=== PATIENT | female | born 1955 | race Caucasian/White ===

== ENCOUNTER → 2016-12-16 | Outpatient (CLI) | payer MEDICARE, OTHER ==
[~2016-12-16] MED LIST: ADVAIR DISKUS 21 DSK IH; ALBUTEROL0.09 MG/A2 IH; DEPAKOTE SPRIN125 MG PO; FENTANYL TR75 MCG/HR TD; LEVOFLOXACIN500 MG PO; NEURONTIN800 MG PO; NEXIUM40 MG PO; PERCOCET 325 MG1 TA6 PO; PREDNISONE10 MG PO; PRILOSEC20 MG PO; REGLAN10 MG PO; TOPAMAX50 MG PO; UNISOM25 MG PO; XANAX0.5 MG PO
== END | disposition home or self-care (01) ==
LOC: RESCLI 03:52
DX: G43.919 Migraine, unspecified, intractable, without status migrainosus (principal); J43.9 Emphysema, unspecified; F31.70 Bipolar disorder, currently in remission, most recent episode unspecified; G89.4 Chronic pain syndrome

== ENCOUNTER → 2017-03-16 | Outpatient (CLI) | payer MEDICARE, OTHER | END | disposition home or self-care (01) | LOC: RESCLI 02:41 | DX: J43.9 Emphysema, unspecified (principal); G62.9 Polyneuropathy, unspecified; J41.8 Mixed simple and mucopurulent chronic bronchitis; Z76.0 Encounter for issue of repeat prescription ==

== ENCOUNTER 2017-05-18 19:01 | Inpatient (IN) | payer MEDICARE ==
[~2017-05-18] VITALS: Ht 152.4 cm; Wt 86.3 kg
--- NOTE | ~2017-05-18 | CON ---
[place], [place] REPORT OF CONSULTATION NAME: RAYMUNDO HEATH [facility] #: [id number] UNIT #: [id number] ROOM: 409 DOCTOR: MARLON LUBIN MD BIRTHDATE: [birth year] DOS: 05/20/2017 REASON FOR CONSULTATION: To assess the patient for ongoing exacerbation of COPD. REQUESTING PHYSICIAN: This consultation was requested by hospitalist services. HISTORY OF PRESENT ILLNESS: A 61-year-old white female who has been admitted under care of the hospitalist service on 05/18/2017. The patient came to the hospital as he has noted with progressive increased respiratory symptoms ongoing for a couple of days. Symptoms noted to be rapid and progressive and it got worse. She has been noted with coughing, which has been noted intermittently moderate amount of sputum expectoration at times. Usually, the cough has been noted nonproductive. The patient was complaining of wheezing with tightness in chest or shortness of breath, moderate exertion. She denies symptoms of chest pain or hemoptysis. The symptoms of chest congestion was still noted persistent at this time with current medical management. She has been receiving treatment for acute exacerbation of COPD. REVIEW OF SYSTEMS: CONSTITUTIONAL: Fatigue and tiredness noted without symptoms of fever or chills. EYES: Denies any burning, redness, or tenderness. EARS, NOSE, AND THROAT: No sore throat, hoarseness, otalgia, postnasal drainage or epistaxis. CARDIOVASCULAR: Denies anginal pain, edema or pain of the lower extremities. GASTROINTESTINAL: Denies dysphagia, nausea, vomiting, diarrhea, abdominal pain, hematemesis, melena, or hematochezia. SKIN: Denies lesions or rashes. MUSCULOSKELETAL: Denies acute joint pain, redness, or tenderness. CENTRAL NERVOUS SYSTEM: Denies diplopia, seizures or syncope. Remaining systems were reviewed and they were noted all negative. PAST MEDICAL HISTORY: 1. COPD. 2. Chronic hypoxic respiratory failure, use of oxygen 2 liters nasal cannula continuous use. 3. Essential hypertension. 4. Hyperlipidemia. 5. Hypothyroidism. 6. Coronary artery disease with past myocardial infarction. 7. History of migraine headache. PAST SURGICAL HISTORY: 1. ____. 2. Partial thyroidectomy. 3. Tracheostomy in the past, which was decannulated. SOCIAL HISTORY: The patient is , has 3 children. Denies any history of alcohol use. Tobacco use noted since teens, a pack of cigarettes a day until [place], [place] REPORT OF CONSULTATION NAME: RAYMUNDO HEATH UNIT #: [id number] ROOM: [facility] DOCTOR: MARLON LUBIN MD BIRTHDATE: [birth year]. Denies any history of occupation related pulmonary exposure. FAMILY HISTORY: Father at 90 years old from old age. Mother at the age of 6666 years old from complication related to unknown cancer. HOME MEDICATIONS: Noted as use of Ventolin HFA inhaler, ProAir HFA inhaler p.r.n. use, aspirin, gabapentin, DuoNeb p.r.n. use, Reglan 10 mg daily, Percocet daily, Seroquel XR 150 mg b.i.d., Imitrex 100 mg p.r.n. for migraine, and Topamax 50 mg p.o. b.i.d. DRUG ALLERGIES: No known drug allergies. PHYSICAL EXAMINATION: GENERAL: This is a 61-year-old female who has been currently sitting on the bed noted with audible chest congestion and wheezing with very mild tachypnea. VITAL SIGNS: Height of 5 feet, weight of 190 pounds, BMI of 37.1. Temperature was noted as normal, respiratory rate 16-20, heart rate of 81-100, blood pressure 140/90-126/57. The pulse oxygen saturation for the patient recorded on 3 liters nasal cannula 94% saturation. HEENT: Mild to moderate obesity. Head was atraumatic. Eyes nonicterus. Decreased posterior pharyngeal space, high tongue base and crowding of soft tissue structures. CARDIOVASCULAR: S1, S2 audible. LUNGS: The patient was noted with decreased breath sounds in the lungs bilaterally with expiratory wheezing. There were no crackles. ABDOMEN: Soft, moderate obesity, bowel sounds present, nontender. EXTREMITIES: Shows no edema, clubbing, or cyanosis. CENTRAL NERVOUS SYSTEM: Cranial nerves 2-12 intact. No focal deficits. MUSCULOSKELETAL: No deformities. SKIN: No lesions or rashes. LABORATORY DATA: The patient's lactic acid on 05/18/2017 was normal. CBC on 05/18/2017 were normal. CMP on 05/18/2017, on admission, was grossly normal. The troponin was normal on 05/18/2017. BMP on 05/19/2017, glucose 202, phosphorus 1.1. Remaining electrolytes grossly normal. CBC on 05/19/2017 remains normal, 94% segmented neutrophils. Ultrasound of the lower extremities of the patient that was done yesterday does not show any evidence of deep venous thrombosis in the extremities. The blood culture from the showed no bacterial growth. BMP this morning, BUN 23, creatinine 1.1. Remaining electrolytes normal. CBC this morning essentially remains about the same as previously. Review of the chest x-ray, 1 view, which was done in the Emergency Room on 05/18/2017 reviewed for the faxed images shows some hyperinflation without any acute pulmonary infiltration. CT of the chest done on 05/18/2017 was personally reviewed, shows evidence of centrilobular emphysematous changes in the upper lungs bilaterally, more on the right than the left side. Three different nodules were noted size of 5 to 8 with index nodule noted in the right upper lung measured as 8 mm in size. Mediastinal window for this patient was also reviewed and it does not show any significant lymphadenopathy. Left lung does not show any pulmonary nodules. [place], [place] REPORT OF CONSULTATION [id number] #: [id number] ROOM: 409 DOCTOR: KEON LUBIN MDM BIRTHDATE: [birth year] IMPRESSION: 1. The patient who has been currently admitted to the hospital noted with acute severe exacerbation of chronic obstructive pulmonary disease with acute bronchitis. 2. Chronic hypoxic respiratory failure dependent on oxygen. 3. Incidental finding of pulmonary nodule in the same lobe in the right upper lobe; at this time, etiology is unclear; requires further investigation and monitoring as an outpatient. 4. History of several comorbid conditions including hypertension, coronary artery disease and others. 5. Hyperglycemia secondary to corticosteroids. PLAN OF MANAGEMENT: Review of the medication, which was done at this time, the patient has been receiving IV Solu-Medrol 60 mg q.8 hours, which should suffice. Continue bronchodilators every 4 hours. Continuation of the DVT prophylaxis and Mucinex 1200 mg p.o. b.i.d. as well as the flutter valve use. Collected sputum for Gram culture. Continue current antibiotic, Levaquin, for the medical management of acute bronchitis. If the sputum culture does dictated other antibiotic administration could be ordered accordingly. If the patient's respiratory symptom remains persistent and does not resolve, consider fiberoptic bronchoscopy to help clear secretion from the endobronchial tree as necessary. Outpatient CT scan of the chest to be done for the patient in about 3 months to monitor the current pulmonary nodules. Other supportive therapy, plan of management and care. Continue oxygen supplementation for medical management of chronic hypoxic respiratory failure to maintain saturation 90% or greater. MARLON BAXTER MD CM:CONSTR:REPORT OF CONSULTATION 1220 05/21/17 0606 interface
--- NOTE | ~2017-05-18 | PROC NOTE ---
[place], [place] PROCEDURE NOTE NAME: RAYMUNDO HEATH UNIT #: [id number] ROOM: 409 DOCTOR: SAHIL HAMMOND MD,MARLON BIRTHDATE: [birth year] DOS: 05/22/2017 BRONCHOSCOPY REPORT PREOPERATIVE DIAGNOSES: The patient with cough and persistent wheezing as well as rule out tracheal stenosis. POSTOPERATIVE DIAGNOSES: The patient with cough and persistent wheezing as well as rule out tracheal stenosis. PROCEDURE DESCRIPTION: Informed consent obtained from the patient. She was brought to the OR and placed in supine position. Conscious sedation administered by the Anesthesia Department. After achieving appropriate sedation, airway introduced into the mouth. Bronchoscope advanced into the airway into laryngeal area. Epiglottis and vocal cords were seen. Vocal cords were moving symmetrically with movements, 3 cm after the vocal cord, the tracheal lumen, there was noted about 25%-30% narrowing of the tracheal lumen for this patient from the past tracheostomy area. Remaining trachea was noted clear. Moderate amount of secretion present in tracheal lumen, which was suctioned out. Genie noted sharp. Right upper, right middle, left upper, lingula, lower lobe bronchi were all examined. Moderate impaction and mucus plugs noted in the endobronchial tree bilaterally, which were suctioned out and sent for culture. Procedure was tolerated by the patient without any difficulty. Postoperative finding will be discussed with the patient once the patient recovers from the effects of acute sedation. MARLON BAXTER MD CM:PROCNOTE:PROCEDURE NOTE [id number] MARLON HAMMOND MD
--- NOTE | ~2017-05-18 | PR ---
[place], [place] PROGRESS NOTE [id number] UN[facility] #: [id number] ROOM: 409 DOCTOR: SAHIL HAMMOND MD,MARLON BIRTHDATE: [birth year] DOS: 05/23/2017 SUBJECTIVE: She has been noted comfortable at this time, bronchoscopy done yesterday with endobronchial secretions with reduction in the cough. The patient was still noted with wheezing most likely originating because of the upper airway obstruction partial with past tracheostomy and tracheal stenosis. In general, the patient has been doing well after bronchoscopy. OBJECTIVE: VITAL SIGNS: Normal temperature, respiratory rate is 18, heart rate 96, blood pressure 142/80, pulse oxygen saturation on 3 liters is 98% saturation. HEENT: No new change. NECK: Supple. CARDIOVASCULAR: S1, S2 audible. LUNGS: Noted with occasional wheezing, no crackles. ABDOMEN: Soft, nontender. LABORATORY DATA: Sputum culture from spontaneous sputum were noted as a growth of yeast. Gram stain of the bronchial washing were reviewed. Preliminary culture noted no bacterial growth, final culture results were still pending. 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 PLAN OF TREATMENT: The patient could be discharged home today on oral antibiotic, tapering prednisone, outpatient followup was suggested post-discharge. MARLON BAXTER MD CM:PNTRANS 1344 [id number] MARLON HAMMOND MD 05/24/17 0019 interface
--- NOTE | ~2017-05-18 | PR ---
[place], [place] PROGRESS NOTE NAME: RAYMUNDO HEATH UNIT #: [id number] ROOM: 409 DOCTOR: SAHIL HAMMOND MD,MARLON BIRTHDATE: [birth year] DOS: 05/21/2017 SUBJECTIVE: She has been noted with reduction in symptoms of shortness of breath, still noted with wheezing. The wheezing has been noted audible as well. She has been coughing hard and unable to expectorate sputum. She stated that she has to expectorate sputum sometimes extending her head backwards and holding her previous tracheostomy scar to help mobilize some secretions and expectoration of sputum. She has been continued with corticosteroids. OBJECTIVE: VITAL SIGNS: Normal temperature, respiratory rate 18, heart rate 103, blood pressure 128/78. The pulse oxygen saturation on 3 liters nasal cannula is 97% saturation. HEENT: Examination shows no acute change. NECK: Supple. CARDIOVASCULAR: S1, S2 audible. LUNGS: The patient was noted with decreased breath sounds, scattered wheezing was present. This was not consistent with audible wheezing, which was heard most likely related to upper airway abnormalities. ABDOMEN: Soft with chronic obesity. EXTREMITIES: Does not show any edema, clubbing, or cyanosis. SKIN: Showed no lesions or rashes. LABORATORY DATA: The Gram stain of the sputum, which this morning, shows many white blood cells, many budding yeast, few rare gram-positive cocci in chains. IMPRESSION: 1. The patient who has been currently noted with possibility of tracheal stenosis related to the past tracheostomy which has been decannulated would be likely cause of upper airway partial obstruction which would be considered variable. 2. The patient with acute exacerbation of chronic obstructive pulmonary disease as well. 3. Severe nonproductive cough. PLAN OF MANAGEMENT: She has been ordered a CT scan of the neck for assessment of the upper airway direct visualization will be necessary with fibrobronchoscopy to confirm the diagnosis and the severity. Bronchoscopy will also benefit the patient to remove the mucus impaction of major airways. The dose of Solu-Medrol has been decreased to 40 mg of Solu-Medrol b.i.d. from 60 mg every 8 hours. All other supportive plan and management of the patient as ongoing will be continued. [place], [place] PROGRESS NOTE NAME: RAYMUNDO HEATH UNIT #: [id number] ROOM: 409 DOCTOR: MARLON LUBIN MD BIRTHDATE: [birth year] MARLON BAXETR MD CM:KAYLEIGH [id number] [id number] MARLON HAMMOND MD 05/22/17 0229 interface
--- NOTE | ~2017-05-18 | PR ---
[place], [place] PROGRESS NOTE NAME: RAYMUNDO HEATH UNIT #: [id number] ROOM: 409 DOCTOR: SAHIL HAMMOND MDMARLON BIRTHDATE: [birth year] DOS: 05/22/2017 SUBJECTIVE: The patient was seen and examined on 05/22/2017. Remains in the hospital, still noted severe nonproductive cough. The patient was noted with inspiratory wheezing as well. She has not been noticed symptoms of hemodynamic instability. There were no symptoms of chest pain. OBJECTIVE: VITAL SIGNS: For the patient which were recorded shows the blood pressure noted as normal, respiratory rate 20, heart rate 72, blood pressure 140/80-154/86. Pulse oxygen saturation noted 3 liter nasal cannula was 98% saturation. HEENT: Remains unchanged. NECK: Supple. CARDIOVASCULAR: S1, S2 audible. LUNGS: Noted generally decreased breath sounds with expiratory wheezing. ABDOMEN: Soft, nontender. EXTREMITIES: Show chronic obesity. LABORATORY DATA: Spontaneous cultures of the sputum for this patient noted normal elfego preliminary. Gram stain of chest today was noted many white blood cells, many budding yeast with very gram-positive cocci in chains. CMP of this morning, BUN 37, creatinine 1.10, glucose 115. CBC of this morning, hemoglobin 11.6, remaining CBC was normal. CT scan of the soft tissue of the neck that was done yesterday, personally reviewed. Tracheal stenosis was noted ____ vocal cord area. Part of the lung was also included in the current test for this patient as well. 8 mm nodule noted in the right upper lung was visible again in this current CT scan. IMPRESSION: 1. The patient with tracheal stenosis. The patient with expiratory wheezing. The patient was noted with history of chronic obstructive pulmonary disease with acute exacerbation. 2. Pulmonary nodule in the right upper lobe as well. PLAN OF TREATMENT: Proceed with the bronchoscopy as planned. Addition of changes in treatment will be done for the patient based on the progression of the illness. No major treatment will be necessary at this time. Continue current dose of corticosteroids, bronchodilators, other treatment, plan and management and usual care. Supportive therapies. [place], [place] PROGRESS NOTE NAME: RAYMUNDO HEATH UNIT #: [id number] ROOM: 409 DOCTOR: MARLON LUBIN MD BIRTHDATE: [birth year] MARLON BAXTER MD CM:PNTRANS 1111 12 MARLON HAMMOND MD 05/22/17 1613 interface
[2017-05-18 19:08] VITALS: BP 155/89
[2017-05-18 19:23] VITALS: BP 180/88
[2017-05-18 19:53] VITALS: BP 142/92
[2017-05-18 20:12] LABS: BASO % 0.4 % (0.0-1.0); EOS # 0.2 10*3/uL (0.0-0.4); EOS % 2.1 % (1.0-4.0); HEMATOCRIT 38.8 % (37.0-47.0); HEMOGLOBIN 12.4 g/dl (12.0-16.0); LYMPH % 20.3 % (27.0-41.0); MEAN CORPUSCULAR HGB 29.7 pg (27.0-31.0); MEAN PLATELET VOLUME 10.3 fl (9.6-12.3); MONO # 0.6 10*3/uL (0.1-1.0); NEUT # 6.9 10*3/uL (2.3-7.9); NEUT % 70.8 % (47.0-73.0); PLATELET COUNT AUTOMATED 221 10*3/uL (130-400); RED BLOOD COUNT 4.17 10*6/uL (4.10-5.10); RED CELL DISTRI WIDTH 13.2 % (0-14.5); WHITE BLOOD COUNT 9.8 10*3/uL (4.8-10.8)
[2017-05-18 20:28] LABS: ALBUMIN 3.1 gm/dl (3.1-4.5); ALKALINE PHOSPHATASE 120 U/L (45-117); BUN 8 mg/dl (7-24); CHLORIDE 108 mmol/L (98-107); CREATININE 0.85 mg/dL (0.55-1.02); POTASSIUM 3.6 mmol/L (3.5-5.1); SGOT/AST 15 IU/L (3-35); SGPT/ALT 17 U/L (12-78); SODIUM 140 mmol/L (136-145)
[2017-05-18 20:30] LABS: TROPONIN I < 0.015 ng/ml (<0.045)
--- NOTE | 2017-05-18 21:30 | NUR ---
CALLED TO GIVE REPORT ON PT, NURSE WILL RETURN CALL.
[2017-05-18 21:42] VITALS: BP 132/70
[2017-05-18 22:31] VITALS: BP 138/80
--- NOTE | 2017-05-18 23:10 | NUR ---
A 61 FEMALE, admitted to , under the services of MITCHELL Al DO with a diagnosis of COPD EXACERBATION. Chief complaint is SOB. Patient arrived via wheel chair from ER. Monitor applied. Initial assessment completed. Vital signs taken and recorded. MITCHELL AL DO notified of admission to the unit. Orders received. See assessment for past medical history, medications and allergies. Patient and/or family oriented to unit. [facility] visitation policy reviewed. Clothing/patient valuable form completed. MATT PALACIOS
[2017-05-18] MEDS ORDERED: ASPIR-TRIN325 MG PO (23:38)
[2017-05-18] MEDS ORDERED: PROAIR HFA8.5 GM INH (23:39)
[2017-05-18] MEDS ORDERED: SEROQUEL XR150 MG PO (23:39)
[2017-05-18] MEDS ORDERED: IMITREX100 MG PO (23:42)
[2017-05-18] MEDS ORDERED: COMBIVENT RESPIM4 GM INH (23:43)
[2017-05-19] VITALS: BP 146/70
[2017-05-19 00:53] LABS: BILIRUBIN NEGATIVE (NEGATIVE); BLOOD TRACE-LYSED (NEGATIVE); CLARITY CLEAR (CLEAR); COLOR YELLOW (YELLOW); GLUCOSE NEGATIVE (NEGATIVE); KETONE NEGATIVE (NEGATIVE); LEUKO ESTERASE NEGATIVE (NEGATIVE); NITRITE NEGATIVE (NEGATIVE); SPECIFIC GRAVITY 1.015 (1.005-1.030); UROBILINOGEN 0.2 E.U./dl (0.2-1.0)
[2017-05-19 02:26] LABS: BUN 9 mg/dl (7-24); CHLORIDE 108 mmol/L (98-107); CREATININE 0.91 mg/dL (0.55-1.02); MAGNESIUM 2.1 mg/dL (1.5-2.1); POTASSIUM 4.2 mmol/L (3.5-5.1); SODIUM 138 mmol/L (136-145)
[2017-05-19 02:31] LABS: CHOLESTEROL 152 mg/dL (<200); HDL CHOLESTEROL 43 mg/dl (40-60); LDL CHOLESTEROL 96 mg/dL (9-159); PHOSPHOROUS 1.9 mg/dL (2.5-4.9); TRIGLYCERIDES 63 mg/dl (<150); VLDL CHOLESTEROL 13 mg/dL (6-40)
[2017-05-19 02:38] LABS: THYROID STIM HORMONE (HS) 0.318 uIU/ml (0.358-4.75)
[2017-05-19 06:36] LABS: HEMATOCRIT 38.2 % (37.0-47.0); HEMOGLOBIN 12.3 g/dl (12.0-16.0); MEAN CELL VOLUME 91.6 fl (81.0-99.0); MEAN CORPUSCULAR HGB 29.5 pg (27.0-31.0); MEAN CORPUSCULAR HGB CONC 32.2 g/dl (33.0-37.0); MEAN PLATELET VOLUME 10.7 fl (9.6-12.3); PLATELET COUNT AUTOMATED 207 10*3/uL (130-400); RED BLOOD COUNT 4.17 10*6/uL (4.10-5.10); WHITE BLOOD COUNT 6.9 10*3/uL (4.8-10.8)
[2017-05-19 07:20] LABS: ATYPICAL LYMPHS 1 % (0-0); PLATELET SUFFICIENCY NORMAL (NORMAL); TOTAL CELLS COUNTED 100 #CELLS
[2017-05-19 08:00] VITALS: BP 132/62
--- NOTE | 2017-05-19 11:05 | NUR ---
CRYING IN ROOM. VOICES THAT I CAN'T BREATHE. MEDICATED WITH ATIVAN 1MG PO ORDERED FOR ANXIETY.
--- NOTE | 2017-05-19 11:30 | NUR ---
States Ativan is helping. Appears more calm, not crying. Henry HONEYCUTT
[2017-05-19 12:00] VITALS: BP 138/78
--- NOTE | 2017-05-19 15:02 | NUR ---
DR. BAXTER NOTIFIED OF CONSULT.
[2017-05-19 16:00] VITALS: BP 126/63
[2017-05-19 20:00] VITALS: BP 122/75
[2017-05-20] VITALS: BP 126/57
--- NOTE | 2017-05-20 06:00 | NUR ---
PATIENT RESTING IN BED WITH EYES CLOSED. NO SIGNS OR SYMPTOMS OF DISTRESS NOTED. AUDIBLE WHEEZES NOTED WITHOUT STETHOSCOPE. WILL CONTINUE TO MONITOR. CALL LIGHT IN REACH.
[2017-05-20 06:08] LABS: HEMOGLOBIN 11.5 g/dl (12.0-16.0); MEAN CELL VOLUME 90.9 fl (81.0-99.0); MEAN CORPUSCULAR HGB CONC 31.9 g/dl (33.0-37.0); MEAN PLATELET VOLUME 10.8 fl (9.6-12.3); PLATELET COUNT AUTOMATED 206 10*3/uL (130-400); RED BLOOD COUNT 3.96 10*6/uL (4.10-5.10); WHITE BLOOD COUNT 10.4 10*3/uL (4.8-10.8)
[2017-05-20 06:25] LABS: CHLORIDE 109 mmol/L (98-107); CREATININE 1.11 mg/dL (0.55-1.02); POTASSIUM 4.2 mmol/L (3.5-5.1); SODIUM 141 mmol/L (136-145)
[2017-05-20 06:27] LABS: BUN 23 mg/dl (7-24)
[2017-05-20 06:49] LABS: TOTAL CELLS COUNTED 100 #CELLS
[2017-05-20 06:50] LABS: PLATELET SUFFICIENCY NORMAL (NORMAL)
[2017-05-20 08:00] VITALS: BP 140/90
--- NOTE | 2017-05-20 09:00 | NUR ---
Storeperson in to talk to patient. Patient states lives at home with son and daughter in law. There are no steps in the home. Physician: zan montez [facility]acy: [facility] Home health services: none Patient's level of ADLs: MINIMAL ASSIST Patient has working utilities: all working DME: home oxygen, portable tank, Follow-up physician's appointment after d/c: will be made by hospitalist nurse director upon discharge Does patient want to access PORTAL?: no Discharge plan discussed with patient, patient states she lives at home with her son and daughter in law, she states she uses a walker for ambulation, has home oxygen and a portable tanks, no nebulizer, discussed with her going to a short term senior care for rehab prior to going back home and patient refused, stated her family takes good care of her at home, also discussed VNA and she also refused this, patient stated she would like to have a bedside commode, a hospital bed and a nebulzier at home, hospitalist nurse director notified. case management will follow. JULI FU
[2017-05-20 12:00] VITALS: BP 146/66
[2017-05-20 16:00] VITALS: BP 131/65
[2017-05-20 20:00] VITALS: BP 127/75
--- NOTE | 2017-05-20 21:15 | NUR ---
Medicated with Restoril po prn for help with sleep. Will monitor effectiveness. Call light within reach.
--- NOTE | 2017-05-20 22:20 | NUR ---
Patient resting quietly in bed with eyes closed. Restoril effective. Will continue to monitor. Call light within reach.
[2017-05-21] VITALS: BP 153/92
--- NOTE | 2017-05-21 00:43 | NUR ---
24 HR chart check completed.
[2017-05-21 07:42] LABS: THYROID STIM HORMONE (HS) 0.029 uIU/ml (0.358-4.75)
[2017-05-21 08:00] VITALS: BP 128/78
--- NOTE | 2017-05-21 09:00 | NUR ---
case management visits with patient, again discussed with VNA and patient refused any at this time, case management will follow
[2017-05-21 12:00] VITALS: BP 131/86
--- NOTE | 2017-05-21 13:18 | NUR ---
case management received scripts for a nebulizer, bedside commode and hospital bed, called [facility], faxed scripts and patient's information, they will deliver equipement to patient's home tomorrow, patient notified
[2017-05-21 16:00] VITALS: BP 137/96
[2017-05-21 20:00] VITALS: BP 104/86
[2017-05-22] VITALS (9 sets, daily range): BP systolic 114–154; BP diastolic 57–96
[2017-05-22 05:50] LABS: HEMATOCRIT 37.1 % (37.0-47.0); HEMOGLOBIN 11.6 g/dl (12.0-16.0); LYMPH # 0.5 10*3/uL (1.3-4.4); MEAN CELL VOLUME 92.8 fl (81.0-99.0); MEAN CORPUSCULAR HGB CONC 31.3 g/dl (33.0-37.0); MEAN PLATELET VOLUME 10.9 fl (9.6-12.3); MONO # 0.6 10*3/uL (0.1-1.0); MONO % 5.6 % (3.0-9.0); NEUT # 9.3 10*3/uL (2.3-7.9); NEUT % 88.4 % (47.0-73.0); PLATELET COUNT AUTOMATED 205 10*3/uL (130-400); RED CELL DISTRI WIDTH 13.3 % (0-14.5); WHITE BLOOD COUNT 10.6 10*3/uL (4.8-10.8)
[2017-05-22 06:12] LABS: ALBUMIN 3.2 gm/dl (3.1-4.5); CHLORIDE 109 mmol/L (98-107); POTASSIUM 4.2 mmol/L (3.5-5.1); SGOT/AST 17 IU/L (3-35); SGPT/ALT 21 U/L (12-78); SODIUM 142 mmol/L (136-145); TOTAL PROTEIN 6.9 gm/dL (6.4-8.2)
[2017-05-22 06:13] LABS: ALKALINE PHOSPHATASE 78 U/L (45-117)
[2017-05-22 06:19] LABS: BUN 37 mg/dl (7-24)
--- NOTE | 2017-05-22 08:20 | NUR ---
Remains NPO. To OR for bronch by bed. Adelaida HONEYCUTT
--- NOTE | 2017-05-22 09:00 | NUR ---
case management visits with patient, patient's equipement will be delivered to her home today, patient denies any other home needs
--- NOTE | 2017-05-22 10:20 | NUR ---
Returned to room. Alert and oriented. no difficulty swallowing, full liquids started. Adelaida HONEYCUTT
--- NOTE | 2017-05-22 19:40 | NUR ---
PT. AWAKE, ALERT AND ORIENTED X 3 UPON ENTERING ROOM. PT. ON 3L NC, NC ON FOREHEAD AT TIME, MOVED BACK INTO CORRECT POSITION. BED IN LOWEST POSITION, WHEELS LOCKED, CALL LIGHT WITHIN REACH. SEE SHIFT ASSESSMENT.
[2017-05-23] VITALS: BP 136/77
[2017-05-23 08:00] VITALS: BP 142/80
--- NOTE | 2017-05-23 11:45 | NUR ---
PT WAS COUGHING AND UNABLE TO CATCH HER BREATH. PULSE OX ON 3L NC IS 95%. PT C/O OF BACK PAIN AND MEDICATED WITH PRN NORCO AND ATIVAN AT THIS TIME.
[2017-05-23] MEDS ORDERED: VITAMIN D31000 UNI1 PO (11:59)
[2017-05-23] MEDS ORDERED: DOXYCYCLINE100 M3 PO (11:59)
[2017-05-23] MEDS ORDERED: PREDNISONE10 MG PO (11:59)
[2017-05-23 12:00] VITALS: BP 153/82
[2017-05-23] MEDS ORDERED: VISTARIL25 MG PO (12:01)
--- NOTE | 2017-05-23 12:12 | NUR ---
HEPLOCK AND TELECOMMUNICATIONS CONSULTANT DISCONTINUED, PER PATIENT REQUEST I CALLED HER SON TO TELL HIM NOT TO FORGET HER PORTABLE OXYGEN TANK FR TRANSPORT.
--- NOTE | 2017-05-23 13:39 | NUR ---
PT WHEELED BY WHEELCHAIR TO PRIVATE CAR BY A STUDENT NURSE, DISCHARGE PAPERWORK DISCUSSED.
[2017-05-23 14:06] LABS: ACID FAST SMEAR Negative (.); ACID FAST SPEC PROCESSING Concentration (.)
== END 2017-05-23 13:39 | disposition home or self-care (01) | DRG 871 ==
LOC: ED 19:01 → EDHOLD 21:17 → 4E 21:17
PROVIDERS: Emergency Medicine Emergency Medical Services; Hospitalist; Internal Medicine; Internal Medicine Critical Care Medicine; Student in an Organized Health Care Education/Training Program; ADMIT Internal Medicine
DX: A41.9 Sepsis, unspecified organism (principal); J18.9 Pneumonia, unspecified organism; J96.11 Chronic respiratory failure with hypoxia; E44.0 Moderate protein-calorie malnutrition; E87.8 Other disorders of electrolyte and fluid balance, not elsewhere classified; Z99.81 Dependence on supplemental oxygen; J44.0 Chronic obstructive pulmonary disease with (acute) lower respiratory infection; J44.1 Chronic obstructive pulmonary disease with (acute) exacerbation; R91.1 Solitary pulmonary nodule; I25.10 Atherosclerotic heart disease of native coronary artery without angina pectoris; E78.5 Hyperlipidemia, unspecified; J20.9 Acute bronchitis, unspecified; Z96.642 Presence of left artificial hip joint; I10 Essential (primary) hypertension; E03.9 Hypothyroidism, unspecified; E55.9 Vitamin D deficiency, unspecified; Z79.82 Long term (current) use of aspirin; Z79.899 Other long term (current) drug therapy; I25.2 Old myocardial infarction; Z82.49 Family history of ischemic heart disease and other diseases of the circulatory system; Z80.8 Family history of malignant neoplasm of other organs or systems; Z83.3 Family history of diabetes mellitus; Z87.891 Personal history of nicotine dependence; Z68.37 Body mass index [BMI] 37.0-37.9, adult

== ENCOUNTER → 2017-05-27 | Outpatient (CLI) | payer MEDICARE ==
[~2017-05-27] MED LIST changes: +ASPIR-TRIN325 MG PO; +COMBIVENT RESPIM4 GM INH; +DOXYCYCLINE100 M3 PO; +IMITREX100 MG PO; +PROAIR HFA8.5 GM INH; +SEROQUEL XR150 MG PO; +VISTARIL25 MG PO; +VITAMIN D31000 UNI1 PO
== END | disposition home or self-care (01) ==
LOC: RESCLI 08:35
DX: J44.1 Chronic obstructive pulmonary disease with (acute) exacerbation (principal); G89.4 Chronic pain syndrome; G62.9 Polyneuropathy, unspecified; F31.70 Bipolar disorder, currently in remission, most recent episode unspecified; J43.9 Emphysema, unspecified; R91.1 Solitary pulmonary nodule; J42 Unspecified chronic bronchitis; J41.8 Mixed simple and mucopurulent chronic bronchitis; R60.0 Localized edema

== ENCOUNTER 2017-06-16 13:06 | Emergency (ER) | payer MEDICARE ==
[~2017-06-16] VITALS: Ht 152.4 cm; Wt 86.2 kg
[2017-06-16 13:20] VITALS: BP 154/83
[2017-06-16 14:19] LABS: BASO % 0.2 % (0.0-1.0); EOS # 0.1 10*3/uL (0.0-0.4); EOS % 1.7 % (1.0-4.0); HEMATOCRIT 37.4 % (37.0-47.0); HEMOGLOBIN 12.1 g/dl (12.0-16.0); LYMPH # 1.6 10*3/uL (1.3-4.4); LYMPH % 19.7 % (27.0-41.0); MEAN CELL VOLUME 90.6 fl (81.0-99.0); MEAN CORPUSCULAR HGB 29.3 pg (27.0-31.0); MEAN CORPUSCULAR HGB CONC 32.4 g/dl (33.0-37.0); MEAN PLATELET VOLUME 10.2 fl (9.6-12.3); MONO # 0.5 10*3/uL (0.1-1.0); NEUT # 5.9 10*3/uL (2.3-7.9); NEUT % 71.9 % (47.0-73.0); PLATELET COUNT AUTOMATED 214 10*3/uL (130-400); RED BLOOD COUNT 4.13 10*6/uL (4.10-5.10); WHITE BLOOD COUNT 8.1 10*3/uL (4.8-10.8)
[2017-06-16 14:34] LABS: BILIRUBIN NEGATIVE (NEGATIVE); BLOOD TRACE-INTACT (NEGATIVE); CLARITY SL CLOUDY (CLEAR); COLOR YELLOW (YELLOW); GLUCOSE NEGATIVE (NEGATIVE); KETONE NEGATIVE (NEGATIVE); LEUKO ESTERASE NEGATIVE (NEGATIVE); NITRITE NEGATIVE (NEGATIVE); SPECIFIC GRAVITY 1.015 (1.005-1.030); UROBILINOGEN 0.2 E.U./dl (0.2-1.0)
[2017-06-16 14:35] LABS: ALBUMIN 3.2 gm/dl (3.1-4.5); ALKALINE PHOSPHATASE 120 U/L (45-117); BUN 11 mg/dl (7-24); CHLORIDE 105 mmol/L (98-107); CREATININE 0.86 mg/dL (0.55-1.02); POTASSIUM 3.8 mmol/L (3.5-5.1); SGOT/AST 18 IU/L (3-35); SGPT/ALT 22 U/L (12-78); SODIUM 140 mmol/L (136-145); TOTAL PROTEIN 6.9 gm/dL (6.4-8.2)
[2017-06-16 14:44] LABS: BACTERIA TRACE
[2017-06-16] MEDS ORDERED: MIRALAX POWDER17 G1 PO (15:47)
[2017-06-16] MEDS ORDERED: DUONEB 3 MG/3 ML3 M1 INH (15:47)
== END 2017-06-16 15:39 | disposition home or self-care (01) ==
LOC: ED 13:06
PROVIDERS: Emergency Medicine
DX: R10.31 Right lower quadrant pain (principal); J44.1 Chronic obstructive pulmonary disease with (acute) exacerbation; I10 Essential (primary) hypertension; E78.5 Hyperlipidemia, unspecified; E78.00 Pure hypercholesterolemia, unspecified; E03.9 Hypothyroidism, unspecified; I25.2 Old myocardial infarction; G43.909 Migraine, unspecified, not intractable, without status migrainosus; I25.10 Atherosclerotic heart disease of native coronary artery without angina pectoris; Z79.899 Other long term (current) drug therapy; Z79.82 Long term (current) use of aspirin; Z99.81 Dependence on supplemental oxygen

== ENCOUNTER → 2017-06-29 | Outpatient (CLI) | payer MEDICARE ==
[~2017-06-29] MED LIST changes: +DUONEB 3 MG/3 ML3 M1 INH; +MIRALAX POWDER17 G1 PO
== END | disposition home or self-care (01) ==
LOC: RESCLI 03:51
DX: I10 Essential (primary) hypertension (principal); K59.00 Constipation, unspecified; R60.0 Localized edema; J42 Unspecified chronic bronchitis; R91.1 Solitary pulmonary nodule; J43.9 Emphysema, unspecified; F31.70 Bipolar disorder, currently in remission, most recent episode unspecified; G62.9 Polyneuropathy, unspecified; G89.4 Chronic pain syndrome; R00.0 Tachycardia, unspecified

== ENCOUNTER 2017-07-14 10:45 | Inpatient (IN) | payer MEDICARE ==
[~2017-07-14] VITALS: Ht 152.4 cm; Wt 82.1 kg
--- NOTE | ~2017-07-14 | PR ---
[place], [place] PROGRESS NOTE NAME: RAYMUNDO HEATH [facility] #: [id number] UNIT #: [id number] ROOM: 502 DOCTOR: SAHIL HAMMOND MD,MARLON BIRTHDATE: [birth year] DOS: 07/16/2017 The patient was independently seen and examined the patient [id number] encounter. The history was confirmed. Physical examination performed. Labs were also reviewed. Any assessment changes in the care and management was made personally for today's visit. SUBJECTIVE: She remains in the Intensive Care Unit at this time without any distress, coughing, chest congestion has been noted partially decreased. She denies symptoms of chest pain. The cough has been noted with some sputum expectoration at times. OBJECTIVE: VITAL SIGNS: Recorded showed normal temperature at this time, respiratory rate 22, heart rate 86, blood pressure 147/92-172/86, pulse oxygen saturation on 2 liters nasal cannula 96% saturation. HEENT: No new change. NECK: Supple. CARDIOVASCULAR: S1, S2 audible. LUNGS: Noted moderate generalized reduction of the breath sounds were noted with expiratory wheezing which has been decreased from previous exam. No crackles were heard. ABDOMEN: Soft, nontender. LABORATORY DATA: CBC on 07/16, WBC count 15.0, hemoglobin 11.2, hematocrit 34.6, platelet count normal, 97% segmented neutrophils. BMP: Glucose 157, BUN and creatinine normal. Blood culture from the of this month showed no bacterial growth, final culture results were pending. The patient had another CT scan done that include the chest, abdomen and pelvis with contrast ordered by the primary care attending, the images were personally reviewed, shows stable, previously noted right upper and right middle lobe nodule. The left lower lobe density which was visible with the lower portion CT of thorax abdominal findings couple of days ago on 07/14/2017 was essentially noted somewhat smaller at this time consistent with area of acute infiltration or rounded area of atelectasis. The patient was also noted with the possibility of complex uterine mass as well. IMPRESSION: The patient who has been currently admitted to the hospital. The patient had been treated for medical management of recurrent acute exacerbation of chronic obstructive pulmonary disease, possibility of rounded area of atelectasis or pneumonia involving the right lower lobe as well as acute bronchitis as well. ____ stable, previous pulmonary nodule in the right lung. Possible consideration of the Mycobacterium avium intracellulare infection. The patient remains in consideration at the present time. PLAN OF MANAGEMENT: Continuation of the current antibiotics, bronchodilators and oxygen supplementation. The dose of Solu-Medrol will be decreased to the lower dose at this time to 60 mg b.i.d. dosing. Continuation of the bronchodilators as well. All other supportive therapy, plan of management to be [place], [place] PROGRESS NOTE NAME: RAYMUNDO HEATH UNIT #: [id number] ROOM: [facility] DOCTOR: SAHIL HAMMOND MD,MARLON BIRTHDATE: [birth year] continued as well. Consultation for the patient will be obtained from the REFORESTATION WORKER specialist to assess the current uterine abnormality. Pelvic ultrasound will be beneficial that will be obtained to further assess and correct the current abnormality in the uterus. In the meantime, all other supportive therapy, plan of management in progress will be continued. Supportive therapy, plan of management. All the palliative measures as well. The patient may be transferred from the intensive care unit for this patient to telemetry floor for further continued medical management. Continue oxygen supplementation, maintain saturation 90% or greater. Monitoring all the culture results as well. The note done by the medical educator was approved as well. MARLON BAXTER MD CM:PNTRANS 1148 0025 MARLON HAMMOND MD 07/17/17 0025 interface
--- NOTE | ~2017-07-14 | PR ---
[place], [place] PROGRESS NOTE NAME: RAYMUNDO HEATH UNIT #: [id number] ROOM: 502 DOCTOR: MARLON LUBIN MD BIRTHDATE: [birth year] DOS: 07/17/2017 SUBJECTIVE: The patient has been noted with coughing, which has been noted nonproductive at times intermittently; however, shortness of breath, wheezing has been improving. There were no symptoms of chest pain. OBJECTIVE: VITAL SIGNS: Normal temperature, respiratory rate 20, heart rate 79, blood pressure 144/81. The pulse oxygen saturation on 2 liters 98% saturation. HEENT: Showed no acute change. NECK: Supple. CARDIOVASCULAR: S1, S2 audible. LUNGS: Moderate decreased breath sounds, mild expiratory wheezing, no crackles. ABDOMEN: Soft, nontender. LABORATORY DATA: BMP: BUN 26, creatinine was normal. CBC: WBC count 10.9, hemoglobin 11.3, hematocrit 34.1, remaining CBC normal. The pelvic ultrasound, the patient was completed yesterday, but the patient described as an MRI for the patient was recommended for this patient to correlate with patient with findings of abnormal CT scan. IMPRESSION: The patient who has been noted with progressive resolution improvement. The patient was continued with respiratory status of acute exacerbation of chronic obstructive pulmonary disease, localized pneumonia of the right lower lobe for this patient as well. ____ isolation, bronchial washing. Possibility uterine mass or other abnormality required further clarification. PLAN OF MANAGEMENT: Continue the patient on the bronchodilators, oxygen supplementation. Symptomatic management of the cough as ordered with Mary Ann-AC. Dose of Solu-Medrol will be further decreased at this time to 40 mg b.i.d. Other supportive therapy, plan of management and care plan. Additional treatment continued to be made for this patient with reduction of corticosteroids based on the improvement in the respiratory status. [place], [place] PROGRESS NOTE NAME: RAYMUNDO HEATH UNIT #: [id number] ROOM: [facility] DOCTOR: MARLON LUBIN MD BIRTHDATE: [birth year] MARLON BAXTER MD CM:PNTRANS [id number] MARLON HAMMOND MD 07/18/17 0329 interface
--- NOTE | ~2017-07-14 | CON ---
[place], [place] REPORT OF CONSULTATION [id number] UNIT #: [id number] ROOM: [facility] DOCTOR: KEMI NELSON DO BIRTHDATE: [birth year] DOS: 07/15/2017 This consult note is to be attached to the pulmonology consult note dictated by Dr. Baxter. REASON FOR CONSULTATION: Acute respiratory failure. CHIEF COMPLAINT: Shortness of breath. HISTORY OF PRESENT ILLNESS: The patient is a 61-year-old female with a history of advanced stage COPD, with continuous oxygen dependence at home, who presents with complaints of several days of worsening cough, shortness of breath and increased weakness and tiredness. She states that she has been having a productive cough in addition to chills, fevers, worsening respiratory distress and overall malaise. She denies any abdominal pain, vomiting, diarrhea, neurological symptoms or any other issues. PAST MEDICAL HISTORY: Significant for CAD, COPD, essential hypertension, hyperlipidemia, hypothyroid, migraines, obesity, vitamin D deficiency. PAST SURGICAL HISTORY: History of hip replacement, thyroidectomy and tracheostomy as well as stented coronary artery. SOCIAL HISTORY: Does not drink, does not use drugs and she has quit smoking as of last year. FAMILY HISTORY: Mother had CO at age 68. She was diabetic and she at age 93. Father had an CO in the 60s and he was at age 66 from cancer. ALLERGIES: Reported allergy is Mayonnaise. HOME MEDICATIONS: Albuterol, Symbicort, vitamin D, Dulcolax, Neurontin, Vistaril, Combivent, meloxicam, metoprolol, MiraLax, Seroquel and/ Anoro Ellipta. REVIEW OF SYSTEMS: GENERAL: She reports fevers, chills, malaise. HEENT: Denies change in vision, blurred vision, congestion. CARDIOVASCULAR: Reports chest discomfort. Denies any palpitations or lower extremity edema. RESPIRATORY: She reports shortness of breath, cough, wheezing and dyspnea with exertion. ABDOMINAL: Denies vomiting, diarrhea, abdominal pain, blood in stools. GENITOURINARY: Denies any dysuria, hematuria. NEUROLOGIC: Denies any focal neural deficits, confusion. PSYCHIATRIC: Denies depression or anxiety. ENDOCRINE: Denies polydipsia or heat or cold intolerance. SKIN: Denies any new rashes or lesions. PHYSICAL EXAMINATION: [place], [place] REPORT OF CONSULTATION NAME: RAYMUNDO HEATH [facility] #: [id number] UNIT #: [id number] ROOM: [facility] DOCTOR: KEMI NELSON DO BIRTHDATE: [birth year] VITAL SIGNS: Temperature 98.2, pulse 98, respiratory rate 15, blood pressure 126/70 and bedside pulse oximetry 96% on 3 liter nasal cannula. GENERAL: Awake, alert, responsive, in moderate degree of distress. HEAD: Normocephalic, atraumatic. EYES: No lesions, ulcerations, nonicteric. No discharge. ENT: No lesions. No scars. No masses. HEART: No gallop or murmur. Positive tachycardia. No edema in lower extremities. LUNGS: Bilateral wheezes and scattered rhonchi and crackles. ABDOMEN: Soft, nontender, nondistended. EXTREMITIES: No clubbing, cyanosis or edema. NEUROLOGIC: Grossly intact without focal neuro deficits. PSYCHOLOGICAL: Poor historian, somewhat anxious. SKIN: Warm and dry. No rashes, ulcerations. LABORATORY DATA: CBC: WBC is 17.3, HGB 11.2, HCT 34.8, and platelets 176. CHEMISTRIES: Sodium 142, potassium 3.9, chloride 111, carbon dioxide 23, BUN 14, creatinine 0.92, estimated GFR is more than 60, glucose 235, estimated average glucose when compared to A1c is 100, calcium 8.5, phosphorus 1.2, magnesium 1.8. Troponin negative for elevation. Triglycerides 54, cholesterol 134, LDL 73, HDL50, VLDL 11. Vitamin B12 of 415, vitamin D is 9.7. Folate is 5.65 and TSH is 0.069. Micro: Blood cultures ordered and pending. Respiratory virus panel pending. IMAGING: CT of the abdomen and pelvis was done yesterday, showed a consolidation in the posterior aspect of the right lung measuring up to 2 x 2 cm, cause is unclear, possible pneumonia amongst other possibilities, also possible uterine mass was appreciated by the radiologist. A ventral midline 5.6 cm hernia containing fat with minimal fat stranding was appreciated as well. Smaller periumbilical hernia with moderate fatty stranding was also seen by the radiologist per the report. CT of chest, abdomen and pelvis with contrast was reported to further evaluate her potential opacity in the lung or consolidation in the lungs. The pelvic region is reported to be poorly visualized due to extensive artifact from bilateral hip arthroplasties and there was no metastatic disease identified. As for the lung CT, it showed some stable nodular densities in the right upper lobe dating back to June of last year and the consolidations are appreciated again with a 9 mm density in the right lower lobe which the radiology report states could be inflammatory, as well as the densities in right lower lobe. Gallbladder ultrasound was done and showed diffuse hepatic steatosis, but without cholelithiasis or gallbladder wall thickening or biliary dilatation. ASSESSMENT AND PLAN: 1. Severe sepsis secondary to acute respiratory failure from what is likely bilateral pneumonia. 2. Lung nodules, less than 6 cm. This appears to be most likely inflammatory in nature rather than metastatic or cancerous; however, this is unclear at this time, so we will continue to follow and monitor for any changes. She has been started on broad spectrum antibiotics to cover for hospital-acquired pneumonia and breathing treatments as well have been started as well as steroids. We will [place], [place] REPORT OF CONSULTATION NAME: RAYMUNDO HEATH UNIT #: [id number] ROOM: [facility] DOCTOR: KEMI NELSON DO BIRTHDATE: [birth year] continue with those. We will reevaluate tomorrow. Thank you for consulting us. Please attach this to Dr. Baxter's note. KEMI NELSON DO MARLON BAXTER MD CM:CONSTR:REPORT OF CONSULTATION 20 07/15/172057 interface
--- NOTE | ~2017-07-14 | CON ---
[place], [place] REPORT OF CONSULTATION NAME: [facility]DO [facility]ATH [id number] UNIT #: [id number] ROOM: [facility] DOCTOR: MARLON LUBIN MD BIRTHDATE: [birth year] DOS: 07/15/2017 PULMONARY CONSULTATION EVALUATION AND MANAGEMENT ADDENDUM NOTE The patient was independently seen today with [id number]-ft-hoyn encounter. The history was personally taken for this patient. Physical examination performed. All the available labs were reviewed. This has been managed for the patient for today's visit were personally completed and the management changes were ordered as necessary after that. Note done by the medical appliance maker was approved. HISTORY OF PRESENT ILLNESS: This is a 61-year-old female who has been known to me with past history of COPD and other problem, has been admitted to the hospital and discharged on 05/23/2017. The patient was treated at that time for acute exacerbation of COPD and other symptom. The patient has a therapeutic bronchoscopy done on that admission as well. The patient presented to the hospital. The patient has been hospitalized on 07/14/2017. At that time, she was reported symptom recurrence of shortness of breath for the patient, increased chest congestion, and cough. Cough has been noted essentially significant intermittently and not resolving and noted nonproductive. She was also noted symptoms of wheezing and tightness in the chest. She does not have any symptoms of hemoptysis. She does complain of some retrosternal chest pain for the patient without radiation, usually occurs with deep cough. She has been admitted to the hospital for the patient and admitted to the Intensive Care Unit for further medical management. She has been brought to the hospital by the EMS. REVIEW OF SYSTEMS: Already completed by the medical appliance maker that includes elevation in temperature, symptoms of back pain, nausea, vomiting, and abdominal pain for the patient. GENITOURINARY: The right upper quadrant weakness and fatigue. CARDIOVASCULAR: Retrosternal chest pain for the patient. CENTRAL NERVOUS SYSTEM: Headache and other symptoms. PAST MEDICAL HISTORY: 1. The patient was noted for last hospitalization for the patient for the medical management of acute exacerbation of COPD. 2. History of chronic hypoxic respiratory failure, oxygen dependency 2 liters nasal cannula home use. 3. Essential hypertension. 4. Hyperlipidemia. 5. Hypothyroidism. 6. Coronary artery disease with myocardial infarction history. 7. History of migrainous headache. 8. Past tracheostomy for he patient and decannulation. 9. Bilateral hip arthroplasties. PAST SURGICAL HISTORY: 1. Therapeutic bronchoscopy. [place], [place] REPORT OF CONSULTATION NAME: RAYMUNDO HETAH UNIT #: [id number] ROOM: [facility] DOCTOR: SAHIL HAMMOND MD,[facility] BIRTHDATE: [birth year] 2. Partial thyroidectomy. 3. Tracheostomy with decannulation previously. SOCIAL HISTORY: She is , has 2 children. Denies history of alcohol or illicit drug use. Tobacco use noted 1 pack of cigarettes per day, started at teenager until 2016. There was history of occupational history related to pulmonary exposure. FAMILY HISTORY: Father passed [id number] from old age and natural causes. Mother at 66 of complication related to unknown cancer. MEDICATIONS: Current administered medications were recorded as use of vitamin D, Colace, metoprolol succinate, Lovenox for DVT prophylaxis, Protonix, Seroquel, gabapentin, Solu-Medrol 60 mg q.8 hours, Dulera 200/5 two inhalations b.i.d., hydroxyzine 25 mg q.6 p.r.n. for anxiety, DuoNeb q.4 hours, Levaquin, vancomycin, and IV Zosyn. ALLERGIES: The drug allergy history of the patient was noted as no known drug allergies. PHYSICAL EXAMINATION: GENERAL: This is a 61-year-old female who has been currently noted to be awake and alert without distress with audible wheezing. The height for the patient recorded as 5 feet, weight of 181 pounds, and BMI 35. VITAL SIGNS: 102.9 degree Fahrenheit temperature noted on admission, current temperature remains normal. Respiratory rate range between 28-17. Heart rate 88-135 noted on admission. Blood pressure 168/99 recorded on admission and currently noted as 132/74. The pulse oxygen saturation for the patient recorded as 98% on 2 liters nasal cannula and 4 liters nasal cannula 98% saturation later on recorded. Intake is 3.935 liter, output 2600 mL ____ 1.339 liters recorded in the last 24 hours. HEENT: Examination shows head was atraumatic. Eyes nonicterus. Some loss of muscle mastication. NECK: Supple. Previous tracheostomy stoma for this patient was essentially noted mostly healed. CARDIOVASCULAR SYSTEM: S1, S2 audible. LUNGS: The patient was noted with diffuse expiratory wheezing without any crackles. ABDOMEN: Noted flat, soft, nontender. Bowel sounds present. EXTREMITIES: Does not show any edema, clubbing, or cyanosis. CENTRAL NERVOUS SYSTEM: Cranial nerves 2-12 intact. No focal deficit. MUSCULOSKELETAL: No deformities. SKIN: No lesions or rashes. LABORATORY DATA: CBC for the patient that was done on 07/13/2017 has a normal CBC. Lactic acid 1.4 on 07/13/2017. PT, PTT was normal. Chest x-ray, one view, which was done in the Emergency Room, the patient was noted with change of COPD, hyperinflation without any acute pulmonary infiltration, finding of congestive heart failure and pleural effusions. CMP of the patient yesterday on admission, BUN 26, creatinine normal, and glucose 350. The troponin of the [place], [place] REPORT OF CONSULTATION NAME: RAYMUNDO HEATH UNIT #: [id number] ROOM: [facility] DOCTOR: SAHIL HAMMOND MD,MARLON BIRTHDATE: [birth year] patient was noted normal for the patient 3 sets yesterday. Bedside blood glucose range between as a highest. CBC rather repeated again, WBC count 13.2, otherwise noted as a normal CBC. CMP of the patient of 07/14/2017, BUN 36 and creatinine was normal. Influenza A and B, nasal washing antigen noted negative yesterday. The CMP this morning, BUN 44, creatinine normal, and glucose 204. Albumin of 3.0, total protein 5.9, both mildly decreased. CBC this morning, WBC count 13.2, hemoglobin 11.8, hematocrit 36.8, and platelet count was normal. The Radiology data personally reviewed for the patient was performed for this patient on this hospitalization and previously. Chest x-ray of the patient that was done for the patient, one view, in the Emergency Room on 07/13/2017 was noted without any acute infiltration. Chest x-ray previously for the patient on 05/20/2017 does not show any acute abnormalities. She has several previous CT scans done for this patient including the chest, abdomen and pelvis, several of those were reviewed. The CT scan of the chest initially once done for the patient, which was done on 07/12/2016 for the patient was noted with 7 mm nodule for the patient noted changes of emphysema of the patient in the right upper lobe. CT scan of the chest and CT of 05/18/2017 for the patient was reviewed for the patient's imminent nodule noted in the right upper lobe. It remains unchanged. Additional small nodule noted in right posterior subsegment of the right upper lobe. CT scan of the abdomen, which was done without contrast for the patient was noted with evidence of 2.2 x 2.2 cm rounded consolidation for this patient nodule was noted. Changes of emphysema was also noted. Some abnormality for the patient was described in the uterus for the patient has a mass lesion. Abdominal hernia containing fat was also reported. 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 IMPRESSION: 1. The patient who has been currently admitted to the hospital. The patient noted with finding and symptoms consistent with recurrent acute exacerbation of chronic obstructive pulmonary disease with acute bronchitis, possibility of localized infection, rounded atelectasis, and pneumonia for the patient will be considered in the right lower lobe as a new finding as compared with the last CT scan of the patient in 2015 in the lower portion of the thorax. The chest x-ray does not show any acute other masses. She has been noted past history of pulmonary nodules in the right lung as well. 2. 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 Bronchial washings suggested possibility of current nodule densities resulting from the Mycobacterium avium intracellulare complex infection. 3. Past history of nicotine use as well. 4. Hyperglycemia for the patient secondary to the use of the corticosteroids as well. 5. Leukocytosis, effect of infection with corticosteroid combination has a WBC count today was elevated at 17.3 with 99% segmented neutrophils. 6. Rule out mass lesion in the uterus of the patient with further additional assessment. 7. Tachycardia secondary to the distress for the patient with acute exacerbation of chronic obstructive pulmonary disease for the patient seemed to be resolving. [place], [place] REPORT OF CONSULTATION NAME: RAYMUNDO HEATH UNIT #: [id number] ROOM: [facility] DOCTOR: SAHIL HAMMOND MD,MARLON BIRTHDATE: [birth year] PLAN OF MANAGEMENT: At this time, the patient would be continued on the steroids and the bronchodilators. She was getting very broad-\E\spectrum intravenous antibiotics, all of them will be discontinued and replaced the patient's antibiotic for the patient as doxycycline oral use. Possible consideration of management for the patient for the infection in the future would be considered as well. The current nodule for the patient does not seem to be resulting for malignancy; however, it will be monitored if there would be any uterine cancer confirmed with further assessment. Other supportive therapy and plan of management to be continued for the patient as well. Usual care. Additional treatment changes will be done for the patient based on any new information data that the patient will be obtained. The patient has another CT scan of the chest, abdomen and pelvis ordered by the primary care attending for the patient to be completed today. It would be assessed once available. Respiratory viral panel for the patient will be ordered since the current finding may be occurring for this patient especially the fever, bronchitis, and exacerbation of COPD related to the viral etiology. Thanks for allowing me to participate in the care of this patient. MARLON BAXTER MD CM:CONSTR:REPORT OF CONSULTATION 1228 07/16/17 0041 interface
--- NOTE | ~2017-07-14 | PR ---
[place], [place] PROGRESS NOTE NAME: [facility]ATH [facility] [id number] UNIT #: [id number] ROOM: [facility] DOCTOR: KEMI NELSON DO BIRTHDATE: [birth year] DOS: 07/16/2017 This progress note is to be attached to the one separately dictated by Dr. Baxter. SUBJECTIVE: The patient was evaluated today. She is awake, alert and responsive. Denies nausea, vomiting, diarrhea, chest pain. She does state she is feeling better and she is generally quite a bit more responsive and interactive than she was yesterday. OBJECTIVE EXAMINATION: VITAL SIGNS: Temperature 98.1, pulse 86, respiratory rate 22, blood pressure 147/92 and bedside pulse oximetry is 96% on 2 liters nasal cannula. GENERAL: The patient is awake, alert, oriented, in minimal distress. RESPIRATORY: Some scattered wheezes, but decrease in crackling noises and improved airflow. HEART: Regular rate and rhythm. No murmur. ABDOMEN: Soft, nontender, nondistended. EXTREMITIES: No edema or erythema. PSYCHIATRIC: Somewhat anxious, but a good historian, otherwise normal mood and affect. NEUROLOGIC: No acute neurological deficits. SKIN: No tears or ulcerations. LABORATORY DATA: WBC is 15, HGB is 12.2 and platelets are 202. Chemistries: Sodium is 146, potassium is 3.8, chloride is ____, carbon dioxide is 27, BUN is 19, creatinine 0.92, GFR is more than ____, glucose is 157. IMAGING: The CT of chest, abdomen and pelvis that was done yesterday did not provide any new information regarding any possible metastatic cancer or anything of that sort. The nodule that was initially seen is read as a likely inflammatory process, otherwise no new findings regarding the imaging provided. IMPRESSION: 1. Pneumonia, bilateral with severe sepsis. 2. Chronic obstructive pulmonary disease with exacerbation and acute intrapulmonary inflammatory process. PLAN: Continue with current care. The patient seems to be improving with the steroids and she can now be moved out of the ICU. Also, regarding to the potential pelvic mass, an ultrasound was ordered and we recommend consulting Dr. Torres for his opinion. Otherwise any questions, please see Dr. Baxter's note. KEMI NELSON DO [place], [place] PROGRESS NOTE NAME: RAYMUNDO HEATH [place] UNIT #: [id number] ROOM: [facility] DOCTOR: KEMI NELSON DO BIRTHDATE: [birth year] MARLON BAXTER MD CM:PNTRANS [id number] KEMI NELSON DO 07/16/17 1151 interface
--- NOTE | ~2017-07-14 | PR ---
[place], [place] PROGRESS NOTE NAME[id number] UNIT #: [id number] ROOM: 502 DOCTOR: SAHIL HAMMOND MD,MARLON BIRTHDATE: [birth year] DOS: 07/19/2017 SUBJECTIVE: She has been noted comfortable at this time without distress. Denies symptoms of chest pain. The coughing and other symptoms have been progressively resolved. OBJECTIVE: VITAL SIGNS: Normal temperature, respiratory rate 18, heart rate 89, blood pressure 114/63. The pulse oxygen saturation of the patient on 2 liter nasal cannula 99% saturation. HEENT: Showed no acute change. NECK: Supple. CARDIOVASCULAR: S1, S2 audible. LUNGS: No wheeze or crackles. ABDOMEN: Soft, nontender. IMPRESSION: Progressive resolution of the acute hypoxic respiratory failure, exacerbation of chronic obstructive pulmonary disease, suspected around the area of atelectasis, pneumonia in the right lower lobe with other two pulmonary nodules noted in the right lung appeared to be stable subcentimeter in size. PLAN OF TREATMENT: The patient could be discharged home today. Outpatient follow up will be requested. ____ pulmonary nodule, respiratory status. MARLON BAXTER MD CM:PNTRANS [id number] MARLON HAMMOND MD 07/20/17 0550 interface
--- NOTE | ~2017-07-14 | PR ---
[place], [place] PROGRESS NOTE NAME: RAYMUNDO HEATH UNIT #: [id number] ROOM: 502 DOCTOR: MARLON LUBIN MD BIRTHDATE: [birth year] DOS: 07/18/2017 SUBJECTIVE: She has been noted with continued gradual reduction and improvement in respiratory symptom, reduction in the coughing. There were no symptoms of chest pain. She denies any hemoptysis. She has been currently treated on the telemetry floor. OBJECTIVE: VITAL SIGNS: For the patient, which was recorded for the patient showed the temperature noted as normal, respiratory rate of 20-15, heart rate 86, blood pressure 152/82. Pulse oxygen saturation on 2 liters nasal cannula 95% saturation. HEENT: Examination shows no acute change. NECK: Supple. CARDIOVASCULAR: S1, S2 audible. LUNGS: Examination of lungs shows mild expiratory wheezing were noted without any crackles. ABDOMEN: Soft and nontender. LABORATORY DATA: Today normal WBC count with mild anemia. BMP of the patient, BUN 32 and normal creatinine. IMPRESSION: 1. The patient who had been currently treated in the hospital. The patient is responding to the treatment for the medical management of acute exacerbation of chronic obstructive pulmonary disease for this patient with possibly a localized small pneumonia. The patient's last area rounded atelectasis in the right lower lobe. 2. Mycobacterium avium intracellulare isolation, patient bronchial washing at this time. Currently, the patient has not been started on any medical management and responding to current usual treatment. PLAN OF TREATMENT: Continuation of the current therapy, plan of management of the patient. Ambulation was encouraged. Bronchodilator will be continued. Solu-Medrol yesterday decreased to 40 mg b.i.d. dosing. Consider possible discharge home in the morning. Home physical therapy for the patient and to give the patient oral medications. [place], [place] PROGRESS NOTE NAME: RAYMUNDO HEATH UNIT #: [id number] ROOM: [facility] DOCTOR: MARLON LUBIN MD BIRTHDATE: [birth year] MARLON BAXTER MD CM:PNTRANS 1138 MARLON HAMMOND MD 07/19/17 0123 interface
[2017-07-14 11:02] VITALS: BP 168/99
[2017-07-14 12:22] LABS: HEMATOCRIT 41.4 % (37.0-47.0); HEMOGLOBIN 13.3 g/dl (12.0-16.0); MEAN CELL VOLUME 91.4 fl (81.0-99.0); MEAN CORPUSCULAR HGB 29.4 pg (27.0-31.0); MEAN CORPUSCULAR HGB CONC 32.1 g/dl (33.0-37.0); MEAN PLATELET VOLUME 10.5 fl (9.6-12.3); PLATELET COUNT AUTOMATED 232 10*3/uL (130-400); RED BLOOD COUNT 4.53 10*6/uL (4.10-5.10); RED CELL DISTRI WIDTH 13.1 % (0-14.5); WHITE BLOOD COUNT 19.6 10*3/uL (4.8-10.8)
[2017-07-14 12:24] LABS: ALBUMIN 3.3 gm/dl (3.1-4.5); ALKALINE PHOSPHATASE 132 U/L (45-117); BUN 12 mg/dl (7-24); CHLORIDE 103 mmol/L (98-107); CREATININE 0.96 mg/dL (0.55-1.02); SGOT/AST 29 IU/L (3-35); SGPT/ALT 34 U/L (12-78); SODIUM 137 mmol/L (136-145); TOTAL PROTEIN 7.3 gm/dL (6.4-8.2)
[2017-07-14 12:39] LABS: BASOPHILS 1 % (0-1); TOTAL CELLS COUNTED 100 #CELLS
[2017-07-14 12:40] LABS: PLATELET SUFFICIENCY NORMAL (NORMAL)
[2017-07-14 15:43] VITALS: BP 127/80
[2017-07-14 16:20] LABS: BILIRUBIN NEGATIVE (NEGATIVE); BLOOD TRACE-INTACT (NEGATIVE); CLARITY CLEAR (CLEAR); COLOR YELLOW (YELLOW); GLUCOSE NEGATIVE (NEGATIVE); KETONE NEGATIVE (NEGATIVE); LEUKO ESTERASE NEGATIVE (NEGATIVE); NITRITE NEGATIVE (NEGATIVE); SPECIFIC GRAVITY <= 1.005 (1.005-1.030); UROBILINOGEN 0.2 E.U./dl (0.2-1.0)
[2017-07-14 16:28] LABS: RBC 0-2 rbc/hpf (0-2)
[2017-07-14 16:29] LABS: EPITHELIAL CELLS 0-2
[2017-07-14 17:32] VITALS: BP 130/80
[2017-07-14 18:35] VITALS: BP 126/78
[2017-07-14] MEDS ORDERED: MELOXICAM15 MG PO (19:00)
[2017-07-14] MEDS ORDERED: SYMB160 INH (19:02)
[2017-07-14] MEDS ORDERED: ANORO ELLIPTA1 EACH INH (19:11)
[2017-07-14] MEDS ORDERED: VISTARIL25 MG PO (19:13)
[2017-07-14] MEDS ORDERED: TOPROL XL25 MG PO (19:14)
[2017-07-14] MEDS ORDERED: DULCOLAX STOOL100 MG PO (19:15)
[2017-07-14 20:00] VITALS: BP 123/75
[2017-07-15] VITALS: BP 133/73
[2017-07-15 04:00] VITALS: BP 148/82
[2017-07-15 04:37] LABS: MEAN CELL VOLUME 89.5 fl (81.0-99.0); MEAN CORPUSCULAR HGB 28.8 pg (27.0-31.0); MEAN CORPUSCULAR HGB CONC 32.2 g/dl (33.0-37.0); MEAN PLATELET VOLUME 10.6 fl (9.6-12.3); PLATELET COUNT AUTOMATED 176 10*3/uL (130-400); RED BLOOD COUNT 3.89 10*6/uL (4.10-5.10); RED CELL DISTRI WIDTH 12.9 % (0-14.5); WHITE BLOOD COUNT 17.3 10*3/uL (4.8-10.8)
[2017-07-15 04:40] LABS: HEMATOCRIT 34.8 % (37.0-47.0); HEMOGLOBIN 11.2 g/dl (12.0-16.0)
[2017-07-15 04:50] LABS: ACT PARTIAL THROMBO TIME 29.1 SECONDS (20.8-31.5); INTERNATIONAL NORM RATIO 1.2 (2.0-3.5)
[2017-07-15 04:54] LABS: BUN 14 mg/dl (7-24); CHLORIDE 111 mmol/L (98-107); CHOLESTEROL 134 mg/dL (<200); CREATININE 0.92 mg/dL (0.55-1.02); HDL CHOLESTEROL 50 mg/dl (40-60); LDL CHOLESTEROL 73 mg/dL (9-159); PHOSPHOROUS 1.2 mg/dL (2.5-4.9); POTASSIUM 3.9 mmol/L (3.5-5.1); SODIUM 142 mmol/L (136-145); TRIGLYCERIDES 54 mg/dl (<150); VLDL CHOLESTEROL 11 mg/dL (6-40)
[2017-07-15 05:01] LABS: THYROID STIM HORMONE (HS) 0.069 uIU/ml (0.358-4.75)
[2017-07-15 05:06] LABS: OVALOCYTES FEW; PLATELET SUFFICIENCY NORMAL (NORMAL); TOTAL CELLS COUNTED 100 #CELLS
[2017-07-15 06:36] LABS: VITAMIN D, 25-HYDROXY 9.7 ng/mL (30-100)
[2017-07-15 08:00] VITALS: BP 133/74
[2017-07-15 12:00] VITALS: BP 126/70
[2017-07-15 16:00] VITALS: BP 133/79
[2017-07-15 20:00] VITALS: BP 153/79
[2017-07-16] VITALS (7 sets, daily range): BP systolic 131–189; BP diastolic 73–92
[2017-07-16 04:39] LABS: HEMATOCRIT 34.6 % (37.0-47.0); HEMOGLOBIN 11.2 g/dl (12.0-16.0); MEAN CELL VOLUME 90.6 fl (81.0-99.0); MEAN CORPUSCULAR HGB 29.3 pg (27.0-31.0); MEAN CORPUSCULAR HGB CONC 32.4 g/dl (33.0-37.0); MEAN PLATELET VOLUME 11.1 fl (9.6-12.3); PLATELET COUNT AUTOMATED 202 10*3/uL (130-400); RED BLOOD COUNT 3.82 10*6/uL (4.10-5.10); RED CELL DISTRI WIDTH 13.2 % (0-14.5)
[2017-07-16 05:01] LABS: BUN 19 mg/dl (7-24); CHLORIDE 111 mmol/L (98-107); CREATININE 0.92 mg/dL (0.55-1.02); PHOSPHOROUS 3.1 mg/dL (2.5-4.9); POTASSIUM 3.8 mmol/L (3.5-5.1); SODIUM 146 mmol/L (136-145)
[2017-07-16 05:09] LABS: BURR CELLS FEW; OVALOCYTES FEW; PLATELET SUFFICIENCY NORMAL (NORMAL); TOTAL CELLS COUNTED 100 #CELLS
[2017-07-17] VITALS: BP 154/79
[2017-07-17 06:35] LABS: BASO % 0.1 % (0.0-1.0); HEMATOCRIT 34.1 % (37.0-47.0); HEMOGLOBIN 11.2 g/dl (12.0-16.0); LYMPH # 0.7 10*3/uL (1.3-4.4); LYMPH % 6.1 % (27.0-41.0); MEAN CORPUSCULAR HGB 29.6 pg (27.0-31.0); MEAN CORPUSCULAR HGB CONC 32.8 g/dl (33.0-37.0); MEAN PLATELET VOLUME 11.1 fl (9.6-12.3); MONO # 0.4 10*3/uL (0.1-1.0); MONO % 3.5 % (3.0-9.0); NEUT # 9.7 10*3/uL (2.3-7.9); NEUT % 89.3 % (47.0-73.0); PLATELET COUNT AUTOMATED 204 10*3/uL (130-400); RED BLOOD COUNT 3.79 10*6/uL (4.10-5.10); RED CELL DISTRI WIDTH 13.3 % (0-14.5); WHITE BLOOD COUNT 10.9 10*3/uL (4.8-10.8)
[2017-07-17 07:01] LABS: BUN 26 mg/dl (7-24); CHLORIDE 109 mmol/L (98-107); CREATININE 0.77 mg/dL (0.55-1.02); POTASSIUM 4.1 mmol/L (3.5-5.1); SODIUM 142 mmol/L (136-145)
[2017-07-17 08:00] VITALS: BP 137/63
[2017-07-17 12:00] VITALS: BP 144/81
[2017-07-17 16:00] VITALS: BP 154/72
[2017-07-17 20:00] VITALS: BP 149/74
[2017-07-18] VITALS: BP 127/72
[2017-07-18 01:05] LABS: ADENOVIRUS Negative (Negative); INFLUENZA A Negative (Negative); INFLUENZA B Negative (Negative); METAPNEUMOVIRUS Negative (Negative); PARAINFLUENZA 1 Negative (Negative); PARAINFLUENZA 2 Negative (Negative); PARAINFLUENZA 3 Negative (Negative); RHINOVIRUS Negative (Negative); RSV A Negative (Negative); RSV B Negative (Negative)
[2017-07-18 05:59] LABS: BASO % 0.1 % (0.0-1.0); HEMATOCRIT 36.1 % (37.0-47.0); HEMOGLOBIN 11.6 g/dl (12.0-16.0); LYMPH # 1.5 10*3/uL (1.3-4.4); LYMPH % 14.2 % (27.0-41.0); MEAN CELL VOLUME 90.5 fl (81.0-99.0); MEAN CORPUSCULAR HGB 29.1 pg (27.0-31.0); MEAN CORPUSCULAR HGB CONC 32.1 g/dl (33.0-37.0); MEAN PLATELET VOLUME 10.9 fl (9.6-12.3); MONO # 0.6 10*3/uL (0.1-1.0); MONO % 5.8 % (3.0-9.0); NEUT # 8.1 10*3/uL (2.3-7.9); NEUT % 78.7 % (47.0-73.0); PLATELET COUNT AUTOMATED 210 10*3/uL (130-400); RED BLOOD COUNT 3.99 10*6/uL (4.10-5.10); RED CELL DISTRI WIDTH 13.2 % (0-14.5); WHITE BLOOD COUNT 10.2 10*3/uL (4.8-10.8)
[2017-07-18 06:22] LABS: BUN 32 mg/dl (7-24); CHLORIDE 107 mmol/L (98-107); CREATININE 0.93 mg/dL (0.55-1.02); POTASSIUM 3.8 mmol/L (3.5-5.1); SODIUM 141 mmol/L (136-145)
[2017-07-18 08:00] VITALS: BP 152/82
[2017-07-18 12:00] VITALS: BP 150/80
[2017-07-18 15:57] VITALS: BP 148/76
[2017-07-18 20:00] VITALS: BP 140/70
[2017-07-19] VITALS: BP 155/89
[2017-07-19 08:00] VITALS: BP 162/95
[2017-07-19 12:00] VITALS: BP 114/63
[2017-07-19] MEDS ORDERED: PREDNISONE10 MG PO (13:04)
[2017-07-19] MEDS ORDERED: ROBITUSSIN DM 101 OZ PO (13:04)
[2017-07-19] MEDS ORDERED: DOXYCYCLINE MO100 M1 PO (13:04)
== END 2017-07-19 14:48 | disposition home health service (06) | DRG 871 ==
LOC: ED 10:45 → EDHOLD 16:51 → 5E 16:51 → ICCU 16:51 → 5E 07-16 13:45
PROVIDERS: Emergency Medicine; Internal Medicine; Internal Medicine Critical Care Medicine; Student in an Organized Health Care Education/Training Program; ADMIT Emergency Medicine
DX: A41.9 Sepsis, unspecified organism (principal); J96.21 Acute and chronic respiratory failure with hypoxia; E44.0 Moderate protein-calorie malnutrition; E87.2 Acidosis; Z93.0 Tracheostomy status; J18.1 Lobar pneumonia, unspecified organism; Z99.81 Dependence on supplemental oxygen; J44.0 Chronic obstructive pulmonary disease with (acute) lower respiratory infection; J44.1 Chronic obstructive pulmonary disease with (acute) exacerbation; A31.0 Pulmonary mycobacterial infection; R65.20 Severe sepsis without septic shock; R91.1 Solitary pulmonary nodule; I25.10 Atherosclerotic heart disease of native coronary artery without angina pectoris; R73.9 Hyperglycemia, unspecified; I10 Essential (primary) hypertension; E78.5 Hyperlipidemia, unspecified; G43.909 Migraine, unspecified, not intractable, without status migrainosus; Y95 Nosocomial condition; Z96.643 Presence of artificial hip joint, bilateral; E66.9 Obesity, unspecified; E89.0 Postprocedural hypothyroidism; K21.9 Gastro-esophageal reflux disease without esophagitis; F41.9 Anxiety disorder, unspecified; N85.9 Noninflammatory disorder of uterus, unspecified; E55.9 Vitamin D deficiency, unspecified; G89.29 Other chronic pain; I25.2 Old myocardial infarction; Z87.891 Personal history of nicotine dependence; Z98.61 Coronary angioplasty status; Z79.899 Other long term (current) drug therapy; Z80.8 Family history of malignant neoplasm of other organs or systems; Z83.3 Family history of diabetes mellitus; Z82.49 Family history of ischemic heart disease and other diseases of the circulatory system; Z68.35 Body mass index [BMI] 35.0-35.9, adult

== ENCOUNTER 2017-07-21 08:35 | Inpatient (IN) | payer MEDICARE ==
[2017-07-21] VITALS (7 sets, daily range): BP systolic 104–152; BP diastolic 55–88
[~2017-07-21] VITALS: Ht 152.4 cm; Wt 83.0 kg
--- NOTE | ~2017-07-21 | EKG ---
[place], [place] ELECTROCARDIOGRAM REPORT NAME: RAYMUNDO HEATH UNIT #: [id number] ROOM: 412 DOCTOR: SAHIL HAMMOND MD,MARLON BIRTHDATE: [birth year] DOS: 07/21/2017 ELECTROCARDIOGRAM The electrocardiogram was done on 07/21/2017, at 9:20 a.m. The electrocardiogram was done for assessment of symptoms of shortness of breath. Atrial fibrillation was noted with controlled heart rate of 83 beats per minute. MARLON BAXTER MD CM:EKGRPT:ELECTROCARDIOGRAM REPORT [id number] MARLON HAMMOND MD
[~2017-07-21 08:35] MED LIST changes: +ANORO ELLIPTA1 EACH INH; +DOXYCYCLINE MO100 M1 PO; +DULCOLAX STOOL100 MG PO; +MELOXICAM15 MG PO; +ROBITUSSIN DM 101 OZ PO; +SYMB160 INH; +TOPROL XL25 MG PO
--- NOTE | 2017-07-21 09:20 | NUR ---
PT PROVIDED A BEDSIDE COMMODE AND INFORMED THAT A URINE SPECIMEN IS NEEDED. PT STATES THAT "I CAN'T GO RIGHT NOW" RN INFORMED PT THAT WE NEED THE SAMPLE SOON FOR TESTING. PT VOICED UNDERSTANDING.
[2017-07-21 09:28] LABS: BASO % 0.1 % (0.0-1.0); EOS # 0.2 10*3/uL (0.0-0.4); EOS % 1.3 % (1.0-4.0); HEMATOCRIT 39.8 % (37.0-47.0); HEMOGLOBIN 12.9 g/dl (12.0-16.0); LYMPH # 1.7 10*3/uL (1.3-4.4); LYMPH % 10.5 % (27.0-41.0); MEAN CELL VOLUME 88.6 fl (81.0-99.0); MEAN CORPUSCULAR HGB 28.7 pg (27.0-31.0); MEAN CORPUSCULAR HGB CONC 32.4 g/dl (33.0-37.0); MEAN PLATELET VOLUME 10.2 fl (9.6-12.3); MONO # 1.1 10*3/uL (0.1-1.0); NEUT # 12.8 10*3/uL (2.3-7.9); NEUT % 79.8 % (47.0-73.0); PLATELET COUNT AUTOMATED 222 10*3/uL (130-400); RED BLOOD COUNT 4.49 10*6/uL (4.10-5.10); RED CELL DISTRI WIDTH 13.2 % (0-14.5); WHITE BLOOD COUNT 16.1 10*3/uL (4.8-10.8)
[2017-07-21 09:38] LABS: ACT PARTIAL THROMBO TIME 24.2 SECONDS (20.8-31.5)
[2017-07-21 09:45] LABS: ALBUMIN 3.1 gm/dl (3.1-4.5); ALKALINE PHOSPHATASE 91 U/L (45-117); BUN 27 mg/dl (7-24); CHLORIDE 104 mmol/L (98-107); CREATININE 0.75 mg/dL (0.55-1.02); LIPASE 87 U/L (73-393); POTASSIUM 3.6 mmol/L (3.5-5.1); SGOT/AST 16 IU/L (3-35); SGPT/ALT 39 U/L (12-78); SODIUM 140 mmol/L (136-145); TOTAL PROTEIN 6.6 gm/dL (6.4-8.2)
[2017-07-21 09:46] LABS: TROPONIN I < 0.015 ng/ml (<0.045)
[2017-07-21 11:50] LABS: BILIRUBIN NEGATIVE (NEGATIVE); BLOOD TRACE-INTACT (NEGATIVE); CLARITY CLEAR (CLEAR); COLOR YELLOW (YELLOW); GLUCOSE NEGATIVE (NEGATIVE); KETONE NEGATIVE (NEGATIVE); LEUKO ESTERASE 1+ (NEGATIVE); NITRITE NEGATIVE (NEGATIVE); PH 5.5 (5.0-9.0); UROBILINOGEN 0.2 E.U./dl (0.2-1.0)
[2017-07-21 11:58] LABS: BACTERIA 1+
--- NOTE | 2017-07-21 12:55 | NUR ---
A 61, admitted to , under the services of NANCY Whitt DO with a diagnosis of COPD EXACERBATION,SEPSIS,PNEUMONITIS. Chief complaint is SHORTNESS OF BREATH. Patient arrived via BED from ER. Monitor applied. Initial assessment completed. Vital signs taken and recorded. NANCY WHITT DO notified of admission to the unit. Orders received. See assessment for past medical history, medications and allergies. Patient and/or family oriented to unit. [facility] visitation policy reviewed. Clothing/patient valuable form completed. RAMAN GREER R
[2017-07-21] MEDS ORDERED: NORCO 7.5-3251 EACH PO (13:01)
[2017-07-21] MEDS ORDERED: VITAMIN D31000 UNI1 PO (13:21)
--- NOTE | 2017-07-21 20:03 | NUR ---
PATIENT MEDICATED WITH PO TYLENOL AND PO VISTARIL FOR C/O LOWER ABDOMINAL PAIN 10/10 AND ANXIETY. WILL MONITOR EFFECTIVENESS. CALL LIGHT LEFT WITHIN REACH.
--- NOTE | 2017-07-21 20:21 | NUR ---
NOTIFIED OF PATIENT'S COMPLAINTS OF ABDOMINAL PAIN 05/26. DISCUSSED CURRENT PAIN MEDICATIONS AND PATIENT'S RESPONSE TO THESE MEDICATIONS. NEW ORDERS TO FOLLOW PER .
--- NOTE | 2017-07-21 20:56 | NUR ---
PATIENT STATES EARLIER MEDICATION WAS INEFFECTIVE. PATIENT STILL C/O LOWER ABD PAIN 10/10. IV MORPHINE ADMINISTERED SLOWLY PER PRN ORDER. WILL MONITOR EFFECTIVENESS. CALL LIGHT LEFT IN REACH.
--- NOTE | 2017-07-21 21:32 | NUR ---
EARLIER MORPHINE EFFECTIVE PER PATIENT. WILL CONTINUE TO MONITOR. CALL LIGHT WITHIN REACH.
[2017-07-22] VITALS: BP 141/73
--- NOTE | 2017-07-22 00:21 | NUR ---
CALLED AT THIS TIME REGARDING PATIENT'S REQUEST FOR A SLEEPING PILL. NEW ORDERS TO FOLLOW PER .
--- NOTE | 2017-07-22 01:39 | NUR ---
PATIENT REQUESTED AND RECEIVED PO NORCO AND PO RESTORIL PER PRN ORDER FOR C/O ABDOMINAL PAIN 03/26 AND INSOMNIA. WILL MONITOR EFFECTIVENESS. CALL LIGHT LEFT IN REACH.
--- NOTE | 2017-07-22 02:29 | NUR ---
EARLIER MEDICATION APPEARS EFFECTIVE. PATIENT ASLEEP IN BED. RESPIRATIONS EASY. NO S/S OF DISTRESS NOTED. ON 3L NC. WILL CONTINUE TO MONITOR. CALL LIGHT LEFT IN REACH.
--- NOTE | 2017-07-22 04:04 | NUR ---
PATIENT ASLEEP IN BED. RESPIRATIONS EASY. NO S/S OF DISTRESS NOTED. ON 3L NC. WILL MONITOR. CALL LIGHT IN REACH.
[2017-07-22 07:17] LABS: BASO % 0.1 % (0.0-1.0); HEMATOCRIT 35.9 % (37.0-47.0); HEMOGLOBIN 11.5 g/dl (12.0-16.0); LYMPH # 0.6 10*3/uL (1.3-4.4); LYMPH % 6.9 % (27.0-41.0); MEAN CELL VOLUME 88.6 fl (81.0-99.0); MEAN CORPUSCULAR HGB 28.4 pg (27.0-31.0); MEAN PLATELET VOLUME 10.3 fl (9.6-12.3); MONO # 0.4 10*3/uL (0.1-1.0); MONO % 3.9 % (3.0-9.0); NEUT # 7.8 10*3/uL (2.3-7.9); NEUT % 88.1 % (47.0-73.0); PLATELET COUNT AUTOMATED 226 10*3/uL (130-400); RED BLOOD COUNT 4.05 10*6/uL (4.10-5.10); RED CELL DISTRI WIDTH 13.1 % (0-14.5); WHITE BLOOD COUNT 8.9 10*3/uL (4.8-10.8)
[2017-07-22 07:36] LABS: ALBUMIN 2.8 gm/dl (3.1-4.5); ALKALINE PHOSPHATASE 83 U/L (45-117); BUN 21 mg/dl (7-24); CHLORIDE 105 mmol/L (98-107); CREATININE 0.85 mg/dL (0.55-1.02); PHOSPHOROUS 2.5 mg/dL (2.5-4.9); SGOT/AST 12 IU/L (3-35); SGPT/ALT 32 U/L (12-78); TOTAL PROTEIN 6.5 gm/dL (6.4-8.2)
[2017-07-22 07:41] LABS: SODIUM 139 mmol/L (136-145)
[2017-07-22 07:45] LABS: POTASSIUM 4.6 mmol/L (3.5-5.1)
[2017-07-22 08:00] VITALS: BP 112/59
--- NOTE | 2017-07-22 09:38 | NUR ---
Networking Engineer in to talk to patient. Patient states lives at with family. There are no steps in the home. Physician: [facility]oor [facility]: [facility] Patient's level of ADLs: MINIMAL ASSIST Patient has working utilities: all working DME: walker, home oxygen portable tanks, nebulizer, hospital bed and bedside commode Follow-up physician's appointment after d/c: will be made by hospitalist nurse director upon discharge Does patient want to access PORTAL?: no Discharge plan discussed with patient, patient lives at home with son and daughter in law, she was recently discharged from the hospital and VNA was set up, discussed with her a short term care home stay prior to going home and patient refused, stated she would be fine at home, will talk with patient again regarding snf. JULI FU
--- NOTE | 2017-07-22 10:45 | NUR ---
ADMINISTERED PO NORCO FOR C/O BACK PAIN RATED 6/10. WILL MONITOR FOR EFFECTIVENESS
--- NOTE | 2017-07-22 10:55 | NUR ---
PHYSICAL THERAPY PAtient evaluated on 4, full evaluation to follow. Continue with PT as per plan of care with fall, 02 and acute debility precautions. PAtient with significant dyspneia with minimal exertion. PAtient is moderate complexity via chart review, tests and evaluation: 03409. Refuses SNF per d/c planning. Will require 24/ family assist and complete home health services. Thank you for this referral. Lashay Peters,PT
--- NOTE | 2017-07-22 11:00 | NUR ---
IV started right forearm with #22 protective cath after 1 attempts. Site prepped with Chloroprep. Sterile dressing applied. Patient tolerated procedure well. JULIEN VIRGEN
--- NOTE | 2017-07-22 11:11 | NUR ---
Occupational Therapy evaluation completed this date with full eval to follow. Precautions include O2 dep, IV LUE, SOB w/ min exertion, low complexity level (70114). Recommend OT per POC and OT upon d/c Thank you for this referral. Leatha Monsalve OTR/l
--- NOTE | 2017-07-22 11:40 | NUR ---
Patient resting quietly with no c/o discomfort. Respirations easy and regular. Vital signs stable. No overt distress. JULIEN VIRGEN
[2017-07-22 12:00] VITALS: BP 109/64
[2017-07-22 16:00] VITALS: BP 122/66
[2017-07-22 20:00] VITALS: BP 120/77
--- NOTE | 2017-07-22 22:16 | NUR ---
MEDICATED WITH NORCO FOR COMPLAINTS OF ABDOMINAL PAIN. WILL MONITOR FOR EFFECTIVENESS. CALL LIGHT IN REACH.
--- NOTE | 2017-07-22 23:30 | NUR ---
AMALIACO EFFECTIVE AT THIS TIME. RESTING IN BED WITH EYES CLOSED. NO SIGNS OR SYMPTOMS OF DISTRESS NOTED. WILL CONTINUE TO MONITOR. CALL LIGHT IN REACH.
[2017-07-23] VITALS: BP 139/95
--- NOTE | 2017-07-23 07:30 | NUR ---
ASSUMED CARE OF PT AT THIS TIME, RESPS EASY AND NONLABORED WITH NO S/S OF DISTRESS CALL LIGHT WITH IN REACH
[2017-07-23 08:00] VITALS: BP 136/82
--- NOTE | 2017-07-23 09:00 | NUR ---
case management visits with patient, again discussed with her VNA and she refused any services, case management will follow
[2017-07-23 12:00] VITALS: BP 116/64
--- NOTE | 2017-07-23 12:15 | NUR ---
PHYSICAL THERAPY Patient seen this am 1:1 for therapy and was sitting EOB upon therapist arrival and with continuous O2-3L via NC. Patient was very pleasant transfering sit to stand SBA and ambulated with use of wh walker, 100' x 1, demonstrating increased SOB > 75 feet and needed v/c for purse lip breathing technique during 1 standing rest break < 30 seconds. Patient also needed v/c for safe walker navigation with decreaed velocity prior to returning to EOB sit. Patient remained with call light, telephone and tray table following 14 minutes total treatment time. Will continue per POC as tolerated to improve functional mobilty with increaed standing activity tolerance. Baldomero Hilliard, PHOTOGRAPHIC PRINTER
--- NOTE | 2017-07-23 14:22 | NUR ---
Discharge instructions reviewed with patient/family. Patient receptive and verbalizes understanding. Follow-up care arranged. Written instructions given to patient/family. VLADIMIR THOMAS
--- NOTE | 2017-07-24 09:13 | NUR ---
PHYSICAL THERAPY CO-SIGN I approve of the Phyical Therapy notes written above. RADHA GARCIA PT
== END 2017-07-23 13:58 | disposition home or self-care (01) | DRG 871 ==
LOC: ED 08:35 → 4E 11:30 → EDHOLD 11:30 → 4E 11:35
PROVIDERS: Emergency Medicine; Registered Nurse; ADMIT Student in an Organized Health Care Education/Training Program
DX: A41.9 Sepsis, unspecified organism (principal); J18.9 Pneumonia, unspecified organism; J96.10 Chronic respiratory failure, unspecified whether with hypoxia or hypercapnia; E44.0 Moderate protein-calorie malnutrition; K83.1 Obstruction of bile duct; J44.1 Chronic obstructive pulmonary disease with (acute) exacerbation; J44.0 Chronic obstructive pulmonary disease with (acute) lower respiratory infection; N39.0 Urinary tract infection, site not specified; I10 Essential (primary) hypertension; E78.5 Hyperlipidemia, unspecified; Z68.35 Body mass index [BMI] 35.0-35.9, adult; E66.9 Obesity, unspecified; B96.89 Other specified bacterial agents as the cause of diseases classified elsewhere; R73.9 Hyperglycemia, unspecified; R10.9 Unspecified abdominal pain; E83.51 Hypocalcemia; I25.10 Atherosclerotic heart disease of native coronary artery without angina pectoris; E03.9 Hypothyroidism, unspecified; G43.909 Migraine, unspecified, not intractable, without status migrainosus; Z96.649 Presence of unspecified artificial hip joint; Z87.891 Personal history of nicotine dependence; I25.2 Old myocardial infarction; Z95.5 Presence of coronary angioplasty implant and graft; Z88.8 Allergy status to other drugs, medicaments and biological substances; Z83.3 Family history of diabetes mellitus; Z82.49 Family history of ischemic heart disease and other diseases of the circulatory system; Z80.9 Family history of malignant neoplasm, unspecified

== ENCOUNTER → 2017-08-04 | Outpatient (CLI) | payer MEDICARE ==
[~2017-08-04] MED LIST changes: +NORCO 7.5-3251 EACH PO
== END | disposition home or self-care (01) ==
LOC: RESCLI 02:05
DX: I10 Essential (primary) hypertension (principal); G62.9 Polyneuropathy, unspecified; F31.60 Bipolar disorder, current episode mixed, unspecified; K59.09 Other constipation; I25.10 Atherosclerotic heart disease of native coronary artery without angina pectoris; J44.9 Chronic obstructive pulmonary disease, unspecified; E78.5 Hyperlipidemia, unspecified

== ENCOUNTER 2017-09-15 19:46 | Inpatient (IN) | payer MEDICARE ==
[~2017-09-15] VITALS: Ht 152.4 cm; Wt 79.5 kg
--- NOTE | ~2017-09-15 | EKG ---
[place], [place] ELECTROCARDIOGRAM REPORT NAME: RAYMUNDO HEATH UNIT #: [id number] ROOM: [facility] DOCTOR: SAHIL HAMMOND MD,MARLON BIRTHDATE: [birth year] DOS: 09/15/2017 Electrocardiogram was done on 09/15/2017, at 8:44 p.m. Normal sinus rhythm noted. The heart rate of 88 beats per minute with the wandering EKG. There was no gross changes for ischemia was noted. MARLON BAXTER MD CM:EKGRPT:ELECTROCARDIOGRAM REPORT [id number] MARLON HAMMOND MD
--- NOTE | ~2017-09-15 | PROC NOTE ---
[place], [place] PROCEDURE NOTE NAME: RAYMUNDO HEATH UNIT #: [id number] ROOM: 401 DOCTOR: SAHIL HAMMOND MD,MARLON BIRTHDATE: [birth year] DOS: 09/22/2017 PREOPERATIVE DIAGNOSES: The patient with severe nonresolving cough with the mucus impaction and intermittent wheezing with maximum medical therapy. POSTOPERATIVE DIAGNOSES: Removal of large plugs of the mucus of endobronchial tree bilaterally with finding of acute tracheobronchitis was also noted. PROCEDURE DESCRIPTION: Informed consent obtained from the patient. The patient brought to the OR and placed in supine position. Conscious sedation was administered by the Anesthesia Department. After achieving proper sedation, airway introduced into the mouth. Bronchoscope advanced into the airway into laryngeal area. Epiglottis and vocal cords were seen. The vocal cord was noted moving symmetric with the movements. The bronchoscope was advanced to the vocal cord and tracheal lumen noted with moderate amount of thick mucoid secretion with some purulent secretion mixture, suctioned out to the shan level. The patient noted multiple plaques of the mucus present in the endobronchial tree bilaterally suctioned out and sent for cultures. Procedure well tolerated. There were no endobronchial structure lesions. The procedure finding will be discussed with the patient, once the patient recovered the effects of acute sedation. MARLON BAXTER MD CM:PROCNOTE:PROCEDURE NOTE 1231 0229 MARLON HAMMOND MD
--- NOTE | ~2017-09-15 | CON ---
[place], [place] REPORT OF CONSULTATION NAME[id number] UNIT #: [id number] ROOM: 401 DOCTOR: CLAUDE MATAMOROS ED.D (JESUS) BIRTHDATE: [birth year] DOS: 09/21/2017 HISTORY OF PRESENT ILLNESS: The patient is a 61-year-old female referred by the hospitalist for depression. At the present time, this patient is on the 4th floor at [facility]. She was brought into the hospital for flu-like symptoms. Her medical history is pertinent for coronary artery disease, hypertension, migraine headaches, myocardial infarction, morbid obesity and major depressive disorder. This patient quit smoking in 2015 and denies any alcohol use or abuse. She was awake, alert and oriented in all three spheres. She knew she was in [facility] and she knew the date. She states she does follow with a psychiatrist and counselor here in [place] but is uncertain of their name. She states that their office is either on [address] [facility] [address] or [address], so I am not certain the name of her therapist. She does admit to being chronically depressed and anxious and is taking Vistaril, calcium, Seroquel, gabapentin, Lovenox, Protonix, Zofran, albuterol and Ativan. She states she is not prescribed an antidepressant medication at the present time, but in my opinion, she would benefit from antidepressant medications. I did relay my opinion to the hospitalist office and recommended an antidepressant. She denies any suicidal ideation or plan and has no significant memory deficits. DIAGNOSIS: Major depressive disorder, recurrent. RECOMMENDATIONS: The patient would benefit from antidepressant medications. Thank you very much for this consult. CLAUDE MATAMOORS ED.D CM:CONSTR:REPORT OF CONSULTATION 1237 09/21/171954 interface
--- NOTE | ~2017-09-15 | PR ---
[place], [place] PROGRESS NOTE NAME: RAYMUNDO HEATH UNIT #: [id number] ROOM: 401 DOCTOR: MARLON LUBIN MD BIRTHDATE: [birth year] DOS: 09/22/2017 PULMONARY PROGRESS NOTE SUBJECTIVE: The patient was noted essentially the same without any changes. Denies symptoms of shortness of breath with excessive coughing. Denies symptoms of wheezing or any chest pain. Denies symptoms of abdominal pain. The patient has been kept n.p.o. past midnight for bronchoscopy. Denies any edema of the lower extremity, abnormal skin rashes, or itching. The remaining systems were reviewed, they were noted all negative. PHYSICAL EXAMINATION: VITAL SIGNS: Normal temperature, respirations 18-20, heart rate of 82-104, and blood pressure 160/84-137/81. Pulse oxygen saturation on 3 liters nasal cannula 96% saturation. HEENT: No acute change. NECK: Supple. CARDIOVASCULAR: S1, S2 audible. LUNGS: Moderate decreased breath sounds with [id number] expiratory wheezing. There were no crackles. ABDOMEN: Flat, soft, and nontender. EXTREMITIES: Without any edema. VISIBLE SKIN: No lesions or rashes. MUSCULOSKELETAL: No deformities. CENTRAL NERVOUS SYSTEM: Nonfocal. LABORATORY DATA: The culture of the sputum for the patient of 09/20/2017 was noted light growth of gram-negative bacilli, pending identification sensitivities. There were no other labs done in the last 24 hours. IMPRESSION: 1. Persistent acute exacerbation of chronic obstructive pulmonary disease, acute tracheobronchitis, and possibility of gram-negative infection versus colonization. 2. Resolved and treated acute influenza A infection as well with the Tamiflu. 3. Past history of nicotine abuse. PLAN OF MANAGEMENT: Closely monitoring culture results. The patient will be continued with current bronchodilators, oxygen supplementation, and corticosteroids. After the bronchoscopy if any modification in treatment necessary will be ordered accordingly. In the meantime, other treatment of the patient has previously in progress will be continued. Modification of antibiotic will be done for the patient after the culture results availability. [place], [place] PROGRESS NOTE NAME: RAYMUNDO HEATH UNIT #: [id number] ROOM: 401 DOCTOR: AZMARLON KASPER MD BIRTHDATE: [birth year] MARLON BAXTER MD CM:KAYLEIGH 1228 MARLON HAMMOND MD 09/23/17 0216 interface
--- NOTE | ~2017-09-15 | PR ---
[place], [place] PROGRESS NOTE NAME: RAYMUNDO HEATH UNIT #: [id number] ROOM: 401 DOCTOR: SAHIL HAMMOND MD,MARLON BIRTHDATE: [birth year] DOS: 09/20/2017 SUBJECTIVE: She has been noted reduction in the pain, which appeared to be musculoskeletal. Coughing has been resolving. Wheezing for the patient is also resolving. Denies any shortness of breath at rest. OBJECTIVE: VITAL SIGNS: Normal temperature, respiratory rate 18, heart rate 88, blood pressure 143/68. The pulse oxygen saturation of the patient recorded as 95% on 3 liters nasal cannula. HEENT: No acute change. NECK: Supple. CARDIOVASCULAR: S1, S2 audible. LUNGS: Mild expiratory wheezing with improvement in air entry was noted in the lungs bilaterally. ABDOMEN: Soft, nontender. EXTREMITIES: Without any acute edema. IMPRESSION: 1. The patient with resolving acute bronchitis with exacerbation of chronic obstructive pulmonary disease progressively on current plan of management. 2. Musculoskeletal pain for the patient is improved with local pain management measures. PLAN OF MANAGEMENT: Continuation of bronchodilators, oxygen supplementation. Reduce Solu-Medrol dose to 40 mg b.i.d. Possible discharge home could be considered for morning. MARLON BAXTER MD CM:PNTRANS 1338 [id number] MARLON HAMMOND MD 09/20/17 7966 interface
--- NOTE | ~2017-09-15 | PR ---
[place], [place] PROGRESS NOTE NAME: RAYMUNDO HEATH UNIT #: [id number] ROOM: 401 DOCTOR: MARLON LUBIN MD BIRTHDATE: [birth year] DOS: 09/18/2017 SUBJECTIVE: She was still noted the coughing, chest congestion with shortness of breath with exertion. The symptoms has been noted very slow resolution. Coughing has been noted without any sputum expectoration at this time. There were no symptoms of chest pain or any abdominal pain. OBJECTIVE: VITAL SIGNS: For the patient, which was recorded showed the temperature noted normal, respiratory rate 20, heart rate 91 and blood pressure 118/82. Pulse oxygen saturation 3 liters nasal cannula 96% saturation. HEENT: Showed no acute change. NECK: Supple. CARDIOVASCULAR: S1, S2 audible. LUNGS: Moderate decreased breath sounds, mild to moderate expiratory wheezing without any crackles. ABDOMEN: Soft, nontender. EXTREMITIES: Without edema. LABORATORY DATA: BMP today: BUN 27, creatinine was normal. IMPRESSION: 1. The patient with slow resolution of acute exacerbation of current respiratory symptoms with exacerbation of chronic obstructive pulmonary disease and acute bronchitis. 2. Suspected influenza A infection for the patient, which has been treated with the Tamiflu as well. PLAN OF TREATMENT: The patient will be continuing current plan of therapy. She has been responding to treatment with slow improvement. The steroids for the patient will be continued the same dose today and might be reduced tomorrow morning depends on additional improvement in the respiratory status. Continuation of the symptomatic management of cough and the antibiotic as well as antiviral treatment. [place], [place] PROGRESS NOTE NAME: RAYMUNDO HEATH UNIT #: [id number] ROOM: 401 DOCTOR: MARLON LUBIN MD BIRTHDATE: [birth year] MARLON BAXTER MD CM:PNTRANS 1309 21 MARLON HAMMOND MD 09/18/17 2321 interface
--- NOTE | ~2017-09-15 | PR ---
[place], [place] PROGRESS NOTE NAME: RAYMUNDO HEATH UNIT #: [id number] ROOM: 401 DOCTOR: SAHIL HAMMOND MD,MARLON BIRTHDATE: [birth year] DOS: 09/22/2017 The patient noted comfortable at this time without any acute distress, had not been noted symptoms of chest pain or any abdominal pain. MARLON BAXTER MD CM:KAYLEIGH 1229 29 MARLON HAMMOND MD 09/22/172028 interface
--- NOTE | ~2017-09-15 | PR ---
[place], [place] PROGRESS NOTE [id number] #: [id number] ROOM: 401 DOCTOR: SAHIL HAMMOND MD,MARLON BIRTHDATE: [birth year] DOS: 09/17/2017 SUBJECTIVE: The patient was seen and examined on 09/17/2017. She remains in the hospital. Reduction in symptoms of coughing and wheezing were noted partially. She has been continued with the treatment for suspected influenza infection with acute exacerbation of COPD, coughing, wheezing, and shortness of breath. The patient has been noted with gradual reduction. The patient denies symptoms of chest pain or any hemoptysis. The patient has not been noted with any symptoms of acute chest pain. OBJECTIVE: VITAL SIGNS: Normal temperature, respiratory rate 18, heart rate 90, blood pressure 120/60-149/83. Pulse oxygen saturation on 3 liters nasal cannula 97% saturation. HEENT: Shows head was atraumatic. Eyes nonicterus. NECK: Supple. CARDIOVASCULAR: S1, S2 audible. LUNGS: The patient was noted without any crackles. Moderate expiratory wheezing noted partially decreased from previous examination. ABDOMEN: Soft, nontender. EXTREMITIES: Without any edema. IMPRESSION: The patient with slow resolution of acute exacerbation of chronic obstructive pulmonary disease, acute bronchitis, suspected acute influenza infection, partial improvement noted in all of the above conditions. PLAN OF TREATMENT: Continue the steroids, bronchodilators, oxygen supplementation and other plan of treatment as in progress. Additional treatment changes to be made based on progression of the illness. MARLON BAXTER MD CM:PNTRANS 1123 30 MARLON HAMMOND MD 09/17/172229 interface
--- NOTE | ~2017-09-15 | PR ---
[place], [place] PROGRESS NOTE NAME: RAYMUNDO HEATH [facility] #: [id number] UNIT #: [id number] ROOM: 401 DOCTOR: SAHIL HAMMOND MDMARLON BIRTHDATE: [birth year] DOS: 09/21/2017 SUBJECTIVE: She has been noted with reduction in cough, wheezing, shortness of breath, and other respiratory symptom. Denies symptoms of chest pain or hemoptysis. Denies symptoms of abdominal pain. She denies symptoms of hemoptysis. The patient does not have symptoms of headache. The chest pain of the patient, which was reported as musculoskeletal, is resolving gradually. She denies any symptoms of dizziness, headache, diplopia, or seizures. Remaining systems review was noted as negative. OBJECTIVE: VITAL SIGNS: Temperature of 99.5 degree Fahrenheit, normal temperature, respiratory rate 18-20, heart rate 84-110, blood pressure 156/90-157/86. Pulse oxygen saturation on 3 liters nasal cannula 100% saturation recorded. HEENT: Showed no acute change. NECK: Supple. CARDIOVASCULAR: S1, S2 audible. LUNGS: Noted with [id number] decreased breath sounds with expiratory wheezing. There were no crackles. ABDOMEN: Soft, nontender. Bowel sounds present. EXTREMITIES: Without any edema. CENTRAL NERVOUS SYSTEM: Intact. No focal deficit. SKIN: Visible skin, no lesions or rashes. MUSCULOSKELETAL: Without any acute deformities. LABORATORY DATA: The respiratory viral panel from 09/16/2017 was noted all negative. BMP this morning, BUN 38, creatinine was normal. Remaining electrolytes are grossly normal. Culture of the sputum was pending at this time. The Gram stain from the patient yesterday, many white blood cells with few budding yeast, few gram-negative bacilli, few gram-positive cocci in pairs and clusters. IMAGING STUDIES: The patient had a CTA of the chest, which was ordered by the primary care attending yesterday and that was also reviewed. It showed tubular density noted in the right upper lung, most likely representing the mucus impaction in this patient in one of the subsegment of the right upper lung bronchus. IMPRESSION: 1. The patient noted with musculoskeletal pain with acute exacerbation of chronic obstructive pulmonary disease, acute bronchitis, mucus impaction of the endobronchial tree was also suspected. The finding was not noted consistent with a true nodule for the patient in the right upper lung. 2. History of congestive heart failure, diastolic dysfunction. PLAN OF MANAGEMENT: The patient will benefit from therapeutic bronchoscopy, which is planned to be done tomorrow morning if the consent will be obtained from the patient. Bronchodilators to be continued in the meantime. Continuation of the corticosteroids, current treatment, Solu-Medrol 40 mg [place], [place] PROGRESS NOTE NAME: RAYMUNDO HEATH UNIT #: [id number] ROOM: [facility] DOCTOR: MARLON LUBIN MD BIRTHDATE: [birth year] b.i.d., bronchodilators and high dose of Mucinex. All other supportive therapy, plan of management. No change in antibiotic will be necessary. Monitor culture results. The patient already completed 5 days of treatment for the acute bronchitis related to a suspected influenza infection. MARLON BAXTER MD CM:PNTRANS 1139 27 MARLON HAMMOND MD 09/21/172226 interface
--- NOTE | ~2017-09-15 | PR ---
[place], [place] PROGRESS NOTE NAME: RAYMUNDO HEATH UNIT #: [id number] ROOM: 401 DOCTOR: SAHIL HAMMOND MD,MARLON BIRTHDATE: [birth year] DOS: 09/25/2017 SUBJECTIVE: She has been noted comfortable at this time with gradual reduction in the symptoms of cough and shortness of breath symptoms continuously. She was still awaiting for placement in senior care facility. She is getting continuous intravenous antibiotics. OBJECTIVE: VITAL SIGNS: Normal temperature, respiratory rate 20, heart rate 79, blood pressure 118/58. The pulse oxygen saturation on 3 liters nasal cannula 100% saturation. HEENT: No acute change. NECK: Supple. CARDIOVASCULAR: S1, S2 audible. LUNGS: Noted without any wheeze or crackles at the present time. ABDOMEN: Soft and nontender. EXTREMITIES: Without any acute edema. IMPRESSION: The patient with gradual resolution and improvement continued for the acute exacerbation of chronic obstructive pulmonary disease and acute tracheobronchitis. PLAN OF MANAGEMENT: No changes in the plan of therapy of the patient at this time. Continue the patient's all other previous treatment as previously in progress. Usual care, other supportive therapy, plan of management and care. Usual treatment, all other supportive therapy, plan of management care. Usual treatments. Transfer the patient to nursing facility with the previous plan of care for IV antibiotic for the medical management of gram-negative organism E. coli ESBL-producing species. MARLON BAXTER MD CM:PNTRANS [id number] MARLON HAMMOND MD 09/26/17 0041 interface
--- NOTE | ~2017-09-15 | PR ---
[place], [place] PROGRESS NOTE NAME: RAYMUNDO HEATH UNIT #: [id number] ROOM: 401 DOCTOR: MARLON LUBIN MD BIRTHDATE: [birth year] DOS: 09/19/2017 SUBJECTIVE: She has been complaining of pain in the back of the chest with the cough. The coughing has been noted with some sputum expectoration at time. The wheezing of the patient was noted decreased. Shortness of breath occurs with exertion. Denies symptoms of hemoptysis. Denies symptoms of nausea, vomiting, diarrhea, dizziness or headache. Denies any edema or pain of the lower extremities. Denies any hematuria. The remaining system review noted as negative. OBJECTIVE: VITAL SIGNS: Showed normal temperature, respiratory rate 18, heart rate 88, blood pressure 140/75. Pulse oxygen saturation noted on 3 liters nasal cannula of 100% saturation. HEENT: Examination shows no acute change. NECK: Supple. CARDIOVASCULAR: S1, S2 is audible. LUNGS: The patient was noted with moderate decreased breath sounds, mild to moderate expiratory wheezing. There were no crackles. ABDOMEN: Soft, nontender. EXTREMITIES: The patient was noted without any edema, clubbing or cyanosis. MUSCULOSKELETAL: The patient was noted without any acute deformities. VISIBLE SKIN: No lesions or rashes. LABORATORY DATA: Arterial blood gas today ordered by the primary care attending, pH of 7.33, pCO2 of 43, pO2 of 90.8. CMP this morning, BUN 34, creatinine normal, glucose 106. Albumin 3.0. IMPRESSION: 1. The patient with musculoskeletal chest pain with acute exacerbation of COPD. 2. The patient with evidence of acute suspected bronchitis related to the influenza A infection already been treated for this patient with Tamiflu. PLAN OF MANAGEMENT: The K-pad for this patient was ordered to help control the pain. Continuation of the bronchodilators and oxygen supplementation. Symptomatic management of pain if necessary with any medication will be done. Continue the current antibiotic. Dose of Solu-Medrol was already changed to 40 mg q.8h. Additional changes in treatment later will be needed will be done as necessary. [place], [place] PROGRESS NOTE NAME: RAYMUNDO HEATH UNIT #: [id number] ROOM: 401 DOCTOR: MARLON LUBIN MD BIRTHDATE: [birth year] MARLON BAXTER MD CM:PNTRANS [id number] MARLON HAMMOND MD 09/20/17 0055 interface
--- NOTE | ~2017-09-15 | CON ---
[place], [place] REPORT OF CONSULTATION NAME: RAYMUNDO HEATH UNIT #: [id number] ROOM: 401 DOCTOR: MARLON LUBIN MD BIRTHDATE: [birth year] DOS: 09/16/2017 PULMONARY CONSULTATION EVALUATION AND MANAGEMENT REQUESTING PHYSICIAN: Hospitalist Service. REASON FOR CONSULTATION: Recurrence of acute respiratory symptom. HISTORY OF PRESENT ILLNESS: This is a 61-year-old white female known to me from the past, was admitted to the hospital because of progressive increased respiratory symptom. The patient was independently seen and examined. Uflu-ga-swci encounter, history was confirmed on this patient personally. Physical examination performed. The labs were reviewed. Today the assessment note is personally done. The medical management change as needed for this patient were personally made for today's visit. Note done by the medical photographer was approved. This is a patient who has been known with past history of COPD, chronic hypoxic respiratory failure presented to the hospital and admitted to the hospital as the patient developed symptoms of significant increased shortness of breath occurring at home. The shortness of breath has been noted for the last few days. The symptoms were noted progressively worsening. She was complaining of excessive chest congestion and coughing and also fever of 102 degrees Fahrenheit. The symptoms were noted in the past 5 days, not improving with the usual home medications. She does use the oxygen supplement at home. The coughing has been noted with progressive worsening. She was also exposed to the grandsons who has been recently treated 10 days ago for influenza A infection. The patient has been currently admitted to the hospital from 09/15/2017 for current acute symptoms. Still noticed severe shortness of breath, which occurs with minimal exertion with nonproductive cough, wheezing and chest congestion. REVIEW OF SYSTEMS: Already done by the medical photographer. Past medical history, surgical history, social history, and family history were personally reviewed since my consultation, which was done on 07/15/2017 and remains all unchanged. Please refer to that consultation for further details as needed, which is available in the [employer] document for this patient. MEDICATIONS: The current administered medication was noted as use of hydroxyzine, vitamin D, MiraLax, Seroquel, gabapentin, Mucinex 1200 mg b.i.d., Lovenox for DVT prophylaxis, Dulera 200/5 two puffs b.i.d., Solu-Medrol 60 mg q.8 hours, DuoNeb q.4h., Levaquin intravenously, Tamiflu orally and other medications p.r.n. were used as well for symptomatic management of acute symptoms. DRUG ALLERGIES: Reported as no known drug allergies. PHYSICAL EXAMINATION: GENERAL: A 61-year-old female who has been noted currently sitting on the chair with excessive cough, shortness of breath occurred as the patient walked from a chair in about 5 feet in her room. The height noted 5 feet, weight of 175 [place], [place] REPORT OF CONSULTATION NAME: RAYMUNDO HEATH UNIT #: [id number] ROOM: 401 DOCTOR: SAHIL HAMMOND MD,MARLON BIRTHDATE: [birth year] pounds, BMI 34.2. VITAL SIGNS: Normal temperature, respiratory rate 18-20, heart rate 108 with sinus tachycardia to normal heart rate, blood pressure of the patient ranged between 143/90-154/88. Pulse oxygen saturation on 3 liters nasal cannula 97% saturation. HEENT: Head was atraumatic. Eyes nonicterus. NECK: Supple. CARDIOVASCULAR: S1, S2 is audible. LUNGS: The patient was noted with diffuse expiratory wheezing without any crackles. ABDOMEN: Soft, mild obesity. Bowel sounds present. EXTREMITIES: Without any edema, clubbing, cyanosis. CENTRAL NERVOUS SYSTEM: No gross focal deficit. Cranial nerves 2-12 intact. SKIN: No lesions or rashes. MUSCULOSKELETAL: Without any acute deformities. LABORATORY DATA: PT/INR yesterday was noted normal. Admission CBC yesterday noted as normal. CMP on 09/15/2017 normal BUN and creatinine. The CBC that was done 09/16/2017 was normal. PT/INR done on 09/16/2017 was normal. CMP done on 09/16/2017 BUN normal and creatinine 1.10. Chest x-ray just 1-view done in the Emergency was essentially noted without any acute pulmonary infiltration, changes of COPD, hyperinflation. IMPRESSION: 1. ____ noted with progressive respiratory symptom after exposure for this patient most likely due to influenza A infection resulting in acute severe exacerbation of chronic obstructive pulmonary disease and acute bronchitis. 2. Past nicotine abuse, which was stopped a couple of years ago by the patient. She was stating that she is not smoking any cigarettes. 3. History of chronic hypoxic respiratory failure, remains the same. Other comorbid condition noted in the past history. PLAN OF TREATMENT: Agree with current empirical treatment for influenza A infection for this patient with Tamiflu for a total of 5 days. Continue current dose of Solu-Medrol, bronchodilators to continue. Obtain additional viral panel, nasopharyngeal wash as well. Continue current antibiotic until the bacterial etiology is completely excluded. Titrate oxygen and maintain saturation 92% or greater. Symptomatic management of cough. Collect the sputum for Gram stain and culture as well. Additional treatment changes to be made for the patient based on the progression of the illness. Reduction of Solu-Medrol for this patient will be started based on the improvement of symptom. At this time, the current dose remains the same. Thanks for allowing me to participate in the care of this patient. [place], [place] REPORT OF CONSULTATION NAME: RAYMUNDO HEATH UNIT #: [id number] ROOM: [facility] DOCTOR: MARLON LUBIN MD BIRTHDATE: [birth year] MARLON BAXTER MD CM:CONSTR:REPORT OF CONSULTATION 1530 09/17/17 0517 interface
--- NOTE | ~2017-09-15 | O ---
[place], [place] OPERATIVE NOTE [id number] UNIT #: [id number] ROOM: 401 DOCTOR: NOELLE NIXONLAUREN BIRTHDATE: [birth year] DOS: 09/23/2017 INDICATION: The patient is a 61-year-old, who has presented with multiple medical problems, among which has been her dysphagia and shortness of breath and COPD exacerbation, and mucous plug, status post bronch. PAST MEDICAL HISTORY: COPD, lung nodule, migraine cephalalgia, myocardial infarction, borderline obesity, protein calorie malnutrition, COPD, coronary artery disease, and chronic pain. PAST SURGICAL HISTORY: Thyroidectomy, tracheostomy, hip prosthesis, and coronary artery stents. SOCIAL HISTORY: Smoker, nonalcohol consumer. FAMILY HISTORY: Noncontributory. ALLERGIES: No known medication. MEDICATIONS: Medication list has been reviewed. She is on aerosol therapy as well as bronchodilators, albuterol, and budesonide inhalers. PROCEDURE: Today's procedure part of investigation is panendoscopy plus biopsy plus brush for esophageal moniliasis. PREMEDICATION: Versed and Diprivan. SCOPE: Olympus forward-viewing gastroscope Q10 video. REPORT: After putting the patient in left lateral position and application of lubricant to the scope, the scope was introduced. Thereafter, under direct visualization, advanced through the length of esophagus without difficulty. Advanced diffuse esophageal moniliasis all the way from cervical esophagus to the EG junction was noticed photographed. [place] for fungal study was done. Gastric pouch was entered. Multiple small gastric ulcerations were noticed, photographed, biopsied. Margin of 1 was done. Diffuse gastritis with degraded droplets of blood in the gastric pouch was identified. Duodenal bulb, second and third part within normal limits. The patient extubated, tolerated procedure well. IMPRESSION: Diffuse esophageal moniliasis, multi small gastric ulcerations, and diffuse gastritis. PLAN AND DISCUSSION: We are going to keep this patient chronically on Protonix 40 mg daily. We are going to start her on Diflucan 100 mg today b.i.d., today 200 mg; however, after that from tomorrow 100 mg Diflucan every day for 10 more days. Diet to be regular as tolerated and clinical reassessment. Her dysphagia and distress with esophagus is explained based on her esophageal moniliasis of advanced degree and multiple gastric ulcers. Photographic series have been attached to the chart for future reference and documentation. [place], [place] OPERATIVE NOTE NAME: RAYMUNDO HEATH UNIT #: [id number] ROOM: [facility] DOCTOR: LAUREN DRAKE MD BIRTHDATE: [birth year] LAUREN DRAKE MD CM:OPRECORD:OPERATIVE NOTE [id number] LAUREN DRAKE MD 09/23/17 1245 interface
--- NOTE | ~2017-09-15 | PR ---
[place], [place] PROGRESS NOTE NAME: RAYMUNDO HEATH UNIT #: [id number] ROOM: 401 DOCTOR: SAHIL HAMMOND MD,MARLON BIRTHDATE: [birth year] DOS: 09/24/2017 SUBJECTIVE: She continues to show reduction of the respiratory symptoms and started on intravenous antibiotics for Gram-negative infection. The patient denies any symptoms of hemoptysis. Shortness of breath is resolving. The coughing has been resolving. Cultures of the bronchial washing of the patient was noted with heavy growth of gram-negative bacilli as Klebsiella pneumoniae seem as isolated as mild growth in the sputum culture. OBJECTIVE: VITAL SIGNS: Normal temperature, respiratory rate 20, heart rate 88, blood pressure 130/73, pulse oxygen saturation on 2 liters nasal cannula 99% saturation. HEENT: No acute change. NECK: Supple. CARDIOVASCULAR: S1, S2 audible. No added sounds. LUNGS: Clear of any wheezing or crackles. ABDOMEN: Soft and nontender. Bowel sounds present. EXTREMITIES: Without any acute edema. IMPRESSION: The patient with acute bronchitis. The patient with Klebsiella pneumoniae for this patient with resolving acute exacerbation of chronic obstructive pulmonary disease, progressively as well. PLAN OF MANAGEMENT: Continue medical management with intravenous meropenem for ____ acute bronchitis. Continue bronchodilators and oxygen supplementation. Continue current dose of Solu-Medrol 40 mg daily. MARLON BAXTER MD CM:PNTRANS [phone] MARLON HAMMOND MD 09/24/17 182 interface
--- NOTE | ~2017-09-15 | PR ---
[place], [place] PROGRESS NOTE NAME: RAYMUNDO HEATH UNIT #: [id number] ROOM: 401 DOCTOR: MARLON LUBIN MD BIRTHDATE: [birth year] DOS: 09/23/2017 SUBJECTIVE: The patient has been noted comfortable at this time without any acute distress at the present time. The coughing has been still noted not resolved completely. Denies symptoms of chest pain or abdominal pain. Bronchial washing cultures were noted with Klebsiella pneumoniae for this patient, which was noted ESBL species. The shortness of breath of the patient has been improving. Chest pain of the patient is improving, which is musculoskeletal. OBJECTIVE: VITAL SIGNS: Normal temperature, respiratory rate 12, heart rate 16, blood pressure 150/73. The pulse oxygen saturation on 3 liters is 97% saturation. HEENT: No acute change. NECK: Supple. CARDIOVASCULAR: S1, S2 audible. LUNGS: Without any wheezing or crackles. ABDOMEN: Soft, nontender. Bowel sounds present. EXTREMITIES: The patient was noted without any acute edema. LABORATORY DATA: Cultures of the bronchial washing today preliminarily noted with heavy growth of gram-negative bacilli. BMP today, BUN 27, creatinine normal. CBC, WBC count 12.7, hemoglobin 11.1, platelet count normal. IMPRESSION: The patient with acute tracheobronchitis with Klebsiella pneumoniae, ESBL producing species with severe acute bronchitis and exacerbation of chronic obstructive pulmonary disease. PLAN OF MANAGEMENT: The patient was recommended use of intravenous antibiotic as meropenem 1 g q. 8h. for 7 days minimum. Assessment of the patient for transfer to half-way facility will be considered. In the meantime, continue other supportive therapy, plan of management as well. Reduction of the steroids would be done for the patient with a decrease in Solu-Medrol 40 mg daily from today as well. Assessment and management of discharge planning has been discussed with the primary care attending of this patient for today. [place], [place] PROGRESS NOTE NAME: RAYMUNDO HEAHT UNIT #: [id number] ROOM: 401 DOCTOR: MARLON LUBIN MD BIRTHDATE: [birth year] MARLON BAXTER MD CM:PNTRANS [phone] MARLON HAMMOND MD 09/24/17 0001 interface
--- NOTE | ~2017-09-15 | CON ---
[place], [place] REPORT OF CONSULTATION NAME[id number] UNIT #: [id number] ROOM: 401 DOCTOR: CICI SANZ DO BIRTHDATE: [birth year] DOS: 09/16/2017 CHIEF COMPLAINT: Shortness of breath. HISTORY OF PRESENT ILLNESS: This is a 61-year-old female who came to [facility] ER with a complaint of shortness of breath that began about 3 days ago. She has a history of COPD, CHF and emphysema and is chronically on 3 liters nasal cannula at home. The patient is well known to the pulmonary service. The patient reports that she has had associated fever of 102 at home, however, does not feel feverish at this time. She has a contact with a grandson, who was positive for flu A about 1 week ago. She has also associated productive cough. The patient denies any chest pain, edema, diaphoresis, palpitations or dysphagia. PAST MEDICAL HISTORY: Coronary artery disease, chronic respiratory failure with oxygen dependence, essential hypertension, hyperlipidemia, lung nodule, migraines, myocardial infarction, obesity, oxygen dependence, protein-calorie malnutrition and uterine mass. PAST SURGICAL PROBLEMS: Hip replacement, thyroidectomy, tracheostomy and coronary arterial disease with stenting. PAST SOCIAL HISTORY: Denies alcohol and tobacco abuse. The patient quit smoking 1 year ago. Denies illicit drug use. FAMILY HISTORY: Father at the age of 68 due to an ND. Mother in her 60s due to cancer, also had an ND. ALLERGIES: No known drug allergies. HOME MEDICATIONS: Albuterol, ProAir, Symbicort, Dulcolax, Neurontin, Vistaril, Combivent, DuoNebs, MiraLax, Seroquel and Anoro Ellipta. REVIEW OF SYSTEMS: GENERAL: The patient denies fevers at this time. The patient does complain of chills. Denies weight loss, weight gain. HEENT: Denies vision change, double vision, nasal discharge and throat pain. CARDIOVASCULAR: Denies chest pain, palpitations and edema. RESPIRATORY: Complains of shortness of breath, cough, wheezing, dyspnea on exertion and sputum production. Denies hemoptysis. ABDOMEN: Denies abdominal pain, nausea, vomiting, diarrhea, constipation, hematochezia or hematemesis. GENITOURINARY: The patient denies hematuria. NEUROLOGIC: The patient denies lightheadedness, dizziness or headaches. SKIN: Denies rashes or lesions. VITAL SIGNS: Temperature 98.0, pulse of 97, respirations 22, blood pressure 136/80, pulse ox is 97% on 4 liters nasal cannula. LABORATORY DATA: White count 4.9, hemoglobin 12.4, hematocrit 37.8, platelet [place], [place] REPORT OF CONSULTATION NAME: RAYMUNDO HEATH UNIT #: [id number] ROOM: [facility] DOCTOR: UMU BHAKTACICI BIRTHDATE: [birth year] count 172. Chemistries: Sodium 140, potassium 3.8, chloride 108, carbon dioxide 26, BUN 11, creatinine 1.1, glucose 188, A1c 5.1, calcium 8.2, phosphorus 2.4, magnesium 2.1, total bilirubin 0.1, AST 22, ALT 23, alkaline phosphatase 118. Albumin 3.2. Cholesterol panel normal. Vitamin D 10.4. Vitamin B12 is 615. Folate 8.8. TSH is 0.103. Urine and flu cultures are negative. Chest x-ray shows no acute airspace disease. PHYSICAL EXAMINATION: GENERAL APPEARANCE: The patient is awake, alert and oriented, in moderate respiratory distress. HEENT: Eyes are clear. No injection. Nares are patent. Mucous membranes are moist. NECK: Supple, nontender. CARDIOVASCULAR: Regular rate and rhythm, no murmurs, gallops or rubs. PULMONARY: Wheezing and rhonchi in all lung pedraza. No rales appreciated. ABDOMEN: Soft, nontender with positive bowel sounds. EXTREMITIES: Clear of edema, erythema, clubbing or cyanosis. SKIN: No rashes, no lesions. NEUROLOGIC: No focal deficits. ASSESSMENT: 1. Acute on chronic obstructive pulmonary disease exacerbation with hypoxia and chronic oxygen dependence. 2. Suspected viral etiology. 3. Fever. 4. Hypertension. 5. Oxygen dependent. 6. Coronary artery disease. TREATMENT PLAN: The patient was started on Levaquin, Solu-Medrol 60 q. 8 and DuoNeb. A viral panel was ordered. Tamiflu was initiated as well. Steroids will be tapered once the patient's respiratory symptoms began to improve. No change in current treatment other than the addition of the Tamiflu. We will continue to follow this patient. CICI SANZ DO [place], [place] REPORT OF CONSULTATION NAME: RAYMUNDO HEATH UNIT #: [id number] ROOM: [facility] DOCTOR: CICI SANZ DO BIRTHDATE: [birth year] MARLON BAXTER MD CM:CONSTR:REPORT OF CONSULTATION 1212 09/16/17 2236 interface
[2017-09-15 20:02] VITALS: BP 151/93
[2017-09-15 20:56] VITALS: BP 121/73
[2017-09-15 20:58] LABS: BASO # 0.1 10*3/uL (0.0-0.1); BASO % 0.6 % (0.0-1.0); EOS # 0.2 10*3/uL (0.0-0.4); EOS % 2.1 % (1.0-4.0); HEMATOCRIT 38.7 % (37.0-47.0); HEMOGLOBIN 12.2 g/dl (12.0-16.0); LYMPH # 1.6 10*3/uL (1.3-4.4); LYMPH % 15.3 % (27.0-41.0); MEAN CELL VOLUME 88.6 fl (81.0-99.0); MEAN CORPUSCULAR HGB 27.9 pg (27.0-31.0); MEAN CORPUSCULAR HGB CONC 31.5 g/dl (33.0-37.0); MEAN PLATELET VOLUME 10.9 fl (9.6-12.3); MONO # 0.8 10*3/uL (0.1-1.0); NEUT % 74.7 % (47.0-73.0); PLATELET COUNT AUTOMATED 198 10*3/uL (130-400); RED BLOOD COUNT 4.37 10*6/uL (4.10-5.10); RED CELL DISTRI WIDTH 13.5 % (0-14.5); WHITE BLOOD COUNT 10.7 10*3/uL (4.8-10.8)
[2017-09-15 21:12] LABS: INTERNATIONAL NORM RATIO 1.1 (2.0-3.5)
[2017-09-15 21:17] LABS: ALBUMIN 3.3 gm/dl (3.1-4.5); ALKALINE PHOSPHATASE 120 U/L (45-117); BUN 11 mg/dl (7-24); CHLORIDE 109 mmol/L (98-107); CREATININE 0.93 mg/dL (0.55-1.02); SGOT/AST 21 IU/L (3-35); SGPT/ALT 21 U/L (12-78); SODIUM 141 mmol/L (136-145); TOTAL PROTEIN 7.3 gm/dL (6.4-8.2)
[2017-09-15 21:18] LABS: TROPONIN I < 0.015 ng/ml (<0.045)
[2017-09-15 21:48] VITALS: BP 151/98
[2017-09-16] VITALS (7 sets, daily range): BP systolic 130–154; BP diastolic 60–98
[2017-09-16 03:05] LABS: BILIRUBIN NEGATIVE (NEGATIVE); BLOOD NEGATIVE (NEGATIVE); CLARITY SL CLOUDY (CLEAR); COLOR YELLOW (YELLOW); GLUCOSE NEGATIVE (NEGATIVE); KETONE TRACE (NEGATIVE); LEUKO ESTERASE 2+ (NEGATIVE); NITRITE NEGATIVE (NEGATIVE); PH 5.5 (5.0-9.0); SPECIFIC GRAVITY <= 1.005 (1.005-1.030); UROBILINOGEN 0.2 E.U./dl (0.2-1.0)
[2017-09-16 03:13] LABS: WBC 51-100 wbc/hpf (0-5)
[2017-09-16 03:14] LABS: BACTERIA 2+
[2017-09-16 07:02] LABS: HEMATOCRIT 37.8 % (37.0-47.0); HEMOGLOBIN 12.4 g/dl (12.0-16.0); MEAN CELL VOLUME 87.7 fl (81.0-99.0); MEAN CORPUSCULAR HGB 28.8 pg (27.0-31.0); MEAN CORPUSCULAR HGB CONC 32.8 g/dl (33.0-37.0); MEAN PLATELET VOLUME 10.9 fl (9.6-12.3); PLATELET COUNT AUTOMATED 172 10*3/uL (130-400); RED BLOOD COUNT 4.31 10*6/uL (4.10-5.10); RED CELL DISTRI WIDTH 13.4 % (0-14.5); WHITE BLOOD COUNT 4.9 10*3/uL (4.8-10.8)
[2017-09-16 07:31] LABS: CHLORIDE 108 mmol/L (98-107); POTASSIUM 3.8 mmol/L (3.5-5.1); SODIUM 140 mmol/L (136-145)
[2017-09-16 07:39] LABS: TOTAL CELLS COUNTED 100 #CELLS
[2017-09-16 07:40] LABS: PLATELET SUFFICIENCY NORMAL (NORMAL)
[2017-09-16 07:42] LABS: INTERNATIONAL NORM RATIO 1.1 (2.0-3.5)
[2017-09-16 07:49] LABS: ALBUMIN 3.2 gm/dl (3.1-4.5); ALKALINE PHOSPHATASE 118 U/L (45-117); BUN 11 mg/dl (7-24); CHOLESTEROL 156 mg/dL (<200); HDL CHOLESTEROL 49 mg/dl (40-60); LDL CHOLESTEROL 94 mg/dL (9-159); PHOSPHOROUS 2.4 mg/dL (2.5-4.9); SGOT/AST 22 IU/L (3-35); SGPT/ALT 23 U/L (12-78); THYROID STIM HORMONE (HS) 0.103 uIU/ml (0.358-4.75); TOTAL PROTEIN 7.2 gm/dL (6.4-8.2); TRIGLYCERIDES 65 mg/dl (<150); VLDL CHOLESTEROL 13 mg/dL (6-40)
[2017-09-16 10:12] LABS: VITAMIN D, 25-HYDROXY 10.4 ng/mL (30-100)
[2017-09-17 00:32] VITALS: BP 149/83
[2017-09-17 06:34] LABS: HEMOGLOBIN 11.5 g/dl (12.0-16.0); LYMPH # 0.5 10*3/uL (1.3-4.4); LYMPH % 7.3 % (27.0-41.0); MEAN CELL VOLUME 87.8 fl (81.0-99.0); MEAN CORPUSCULAR HGB CONC 31.9 g/dl (33.0-37.0); MEAN PLATELET VOLUME 11.4 fl (9.6-12.3); MONO # 0.3 10*3/uL (0.1-1.0); MONO % 4.4 % (3.0-9.0); NEUT # 5.6 10*3/uL (2.3-7.9); NEUT % 87.4 % (47.0-73.0); PLATELET COUNT AUTOMATED 167 10*3/uL (130-400); RED CELL DISTRI WIDTH 13.5 % (0-14.5); WHITE BLOOD COUNT 6.4 10*3/uL (4.8-10.8)
[2017-09-17 06:49] LABS: ALBUMIN 3.1 gm/dl (3.1-4.5); CHLORIDE 108 mmol/L (98-107); POTASSIUM 4.5 mmol/L (3.5-5.1); SGOT/AST 14 IU/L (3-35); SGPT/ALT 20 U/L (12-78); SODIUM 142 mmol/L (136-145)
[2017-09-17 06:52] LABS: ALKALINE PHOSPHATASE 100 U/L (45-117); CREATININE 0.97 mg/dL (0.55-1.02); PHOSPHOROUS 1.9 mg/dL (2.5-4.9); TOTAL PROTEIN 6.8 gm/dL (6.4-8.2)
[2017-09-17 06:58] LABS: BUN 21 mg/dl (7-24)
[2017-09-17 08:00] VITALS: BP 120/68
[2017-09-17 12:00] VITALS: BP 136/86
[2017-09-17 16:00] VITALS: BP 121/71
[2017-09-17 20:00] VITALS: BP 156/115; BP 156/72
[2017-09-18] VITALS: BP 156/92
[2017-09-18 07:48] LABS: BUN 27 mg/dl (7-24); CHLORIDE 110 mmol/L (98-107); CREATININE 1.01 mg/dL (0.55-1.02); PHOSPHOROUS 2.8 mg/dL (2.5-4.9); POTASSIUM 4.4 mmol/L (3.5-5.1); SODIUM 142 mmol/L (136-145)
[2017-09-18 07:59] VITALS: BP 152/70
[2017-09-18 12:07] VITALS: BP 118/82
[2017-09-18 15:51] VITALS: BP 144/89
[2017-09-18 20:00] VITALS: BP 108/90
[2017-09-19] VITALS: BP 142/77
[2017-09-19 01:04] LABS: ADENOVIRUS Negative (Negative); INFLUENZA A Negative (Negative); INFLUENZA B Negative (Negative); METAPNEUMOVIRUS Negative (Negative); PARAINFLUENZA 1 Negative (Negative); PARAINFLUENZA 2 Negative (Negative); PARAINFLUENZA 3 Negative (Negative); RHINOVIRUS Negative (Negative); RSV A Negative (Negative); RSV B Negative (Negative)
[2017-09-19 07:08] LABS: ALKALINE PHOSPHATASE 78 U/L (45-117); BUN 34 mg/dl (7-24); CHLORIDE 111 mmol/L (98-107); CREATININE 0.91 mg/dL (0.55-1.02); POTASSIUM 4.1 mmol/L (3.5-5.1); SGOT/AST 17 IU/L (3-35); SGPT/ALT 23 U/L (12-78); SODIUM 144 mmol/L (136-145); TOTAL PROTEIN 6.4 gm/dL (6.4-8.2)
[2017-09-19 08:00] VITALS: BP 138/77
[2017-09-19 09:08] LABS: ABG BASE EXCESS -2.8 mmol/L (-2.0-2.0); ABG HCO3 22.4 mmol/l (22-26); ABG O2 SATURATION 96.9 % (95-97); ARTERIAL BLOOD GAS PCO2 43.2 mmHg (35-45); ARTERIAL BLOOD GAS PH 7.335 (7.35-7.45); ARTERIAL BLOOD GAS PO2 93.8 mmHg (80-90)
[2017-09-19 12:00] VITALS: BP 140/75
[2017-09-19 16:00] VITALS: BP 139/75
[2017-09-19 20:00] VITALS: BP 151/92
[2017-09-20] VITALS: BP 122/58; BP 143/59; BP 146/67
[2017-09-20 06:12] LABS: BUN 28 mg/dl (7-24); CHLORIDE 106 mmol/L (98-107); CREATININE 0.91 mg/dL (0.55-1.02); POTASSIUM 4.9 mmol/L (3.5-5.1); SODIUM 141 mmol/L (136-145)
[2017-09-20 08:00] VITALS: BP 148/75
[2017-09-20 12:00] VITALS: BP 143/68
[2017-09-20 15:34] LABS: BASO % 0.1 % (0.0-1.0); HEMATOCRIT 36.2 % (37.0-47.0); HEMOGLOBIN 11.7 g/dl (12.0-16.0); LYMPH # 0.5 10*3/uL (1.3-4.4); MEAN CELL VOLUME 88.5 fl (81.0-99.0); MEAN CORPUSCULAR HGB 28.6 pg (27.0-31.0); MEAN CORPUSCULAR HGB CONC 32.3 g/dl (33.0-37.0); MEAN PLATELET VOLUME 11.2 fl (9.6-12.3); MONO # 0.4 10*3/uL (0.1-1.0); MONO % 4.2 % (3.0-9.0); NEUT # 8.3 10*3/uL (2.3-7.9); NEUT % 88.7 % (47.0-73.0); PLATELET COUNT AUTOMATED 197 10*3/uL (130-400); RED BLOOD COUNT 4.09 10*6/uL (4.10-5.10); RED CELL DISTRI WIDTH 13.7 % (0-14.5); WHITE BLOOD COUNT 9.4 10*3/uL (4.8-10.8)
[2017-09-20 15:51] LABS: ALBUMIN 3.2 gm/dl (3.1-4.5); ALKALINE PHOSPHATASE 85 U/L (45-117); BUN 33 mg/dl (7-24); CHLORIDE 107 mmol/L (98-107); CREATININE 1.11 mg/dL (0.55-1.02); POTASSIUM 4.7 mmol/L (3.5-5.1); SGOT/AST 30 IU/L (3-35); SGPT/ALT 43 U/L (12-78); SODIUM 141 mmol/L (136-145); TOTAL PROTEIN 6.8 gm/dL (6.4-8.2)
[2017-09-20 16:00] VITALS: BP 126/69
[2017-09-20 16:04] LABS: TROPONIN I < 0.015 ng/ml (<0.045)
[2017-09-20 20:00] VITALS: BP 156/90
[2017-09-21] VITALS: BP 122/58
[2017-09-21 07:38] LABS: BUN 30 mg/dl (7-24); CHLORIDE 109 mmol/L (98-107); CREATININE 0.93 mg/dL (0.55-1.02); POTASSIUM 4.1 mmol/L (3.5-5.1); SODIUM 142 mmol/L (136-145)
[2017-09-21 08:00] VITALS: BP 157/86
[2017-09-21 12:00] VITALS: BP 151/81
[2017-09-21 16:00] VITALS: BP 136/50
[2017-09-21 20:03] VITALS: BP 160/84
[2017-09-22] VITALS (9 sets, daily range): BP systolic 114–168; BP diastolic 68–90
[2017-09-23] VITALS (9 sets, daily range): BP systolic 124–165; BP diastolic 56–95
[2017-09-23 07:22] LABS: BASO % 0.2 % (0.0-1.0); HEMATOCRIT 34.2 % (37.0-47.0); HEMOGLOBIN 11.1 g/dl (12.0-16.0); LYMPH # 0.7 10*3/uL (1.3-4.4); LYMPH % 5.4 % (27.0-41.0); MEAN CELL VOLUME 88.4 fl (81.0-99.0); MEAN CORPUSCULAR HGB 28.7 pg (27.0-31.0); MEAN CORPUSCULAR HGB CONC 32.5 g/dl (33.0-37.0); MEAN PLATELET VOLUME 10.5 fl (9.6-12.3); MONO # 0.5 10*3/uL (0.1-1.0); NEUT # 11.2 10*3/uL (2.3-7.9); NEUT % 88.1 % (47.0-73.0); PLATELET COUNT AUTOMATED 238 10*3/uL (130-400); RED BLOOD COUNT 3.87 10*6/uL (4.10-5.10); WHITE BLOOD COUNT 12.7 10*3/uL (4.8-10.8)
[2017-09-23 07:51] LABS: BUN 27 mg/dl (7-24); CHLORIDE 106 mmol/L (98-107); CREATININE 0.86 mg/dL (0.55-1.02); POTASSIUM 4.8 mmol/L (3.5-5.1); SODIUM 140 mmol/L (136-145)
[2017-09-23 16:08] LABS: ACID FAST SMEAR Negative (.); ACID FAST SPEC PROCESSING Concentration (.)
[2017-09-24] VITALS: BP 121/56; BP 134/72
[2017-09-24 06:00] LABS: HEMATOCRIT 34.5 % (37.0-47.0); HEMOGLOBIN 11.1 g/dl (12.0-16.0); MEAN CELL VOLUME 88.7 fl (81.0-99.0); MEAN CORPUSCULAR HGB 28.5 pg (27.0-31.0); MEAN CORPUSCULAR HGB CONC 32.2 g/dl (33.0-37.0); MEAN PLATELET VOLUME 10.8 fl (9.6-12.3); PLATELET COUNT AUTOMATED 232 10*3/uL (130-400); RED BLOOD COUNT 3.89 10*6/uL (4.10-5.10); RED CELL DISTRI WIDTH 14.2 % (0-14.5); WHITE BLOOD COUNT 10.9 10*3/uL (4.8-10.8)
[2017-09-24 07:32] LABS: ATYPICAL LYMPHS 1 % (0-0); PLATELET SUFFICIENCY NORMAL (NORMAL); SCHISTOCYTES FEW; TOTAL CELLS COUNTED 100 #CELLS
[2017-09-24 08:00] VITALS: BP 130/73
[2017-09-24 12:00] VITALS: BP 124/64
[2017-09-24 16:00] VITALS: BP 130/77
[2017-09-24 20:00] VITALS: BP 110/69
[2017-09-25] VITALS: BP 100/64
[2017-09-25 07:45] LABS: BUN 28 mg/dl (7-24); CHLORIDE 104 mmol/L (98-107); CREATININE 0.82 mg/dL (0.55-1.02); POTASSIUM 4.3 mmol/L (3.5-5.1); SODIUM 141 mmol/L (136-145)
[2017-09-25 08:00] VITALS: BP 121/79
[2017-09-25 12:00] VITALS: BP 118/58
[2017-09-25] MEDS ORDERED: PREDNISONE10 MG PO (13:02)
[2017-09-25] MEDS ORDERED: DULOXETINE HCL30 MG PO (13:02)
[2017-09-25] MEDS ORDERED: PANTOPRAZOLE SO40 MG PO (13:02)
[2017-09-25] MEDS ORDERED: MIRALAX POWDER17 G1 PO (13:02)
[2017-09-25] MEDS ORDERED: FLUCONAZOLE100 MG PO (13:02)
[2017-09-25] MEDS ORDERED: QUETIAPINE FUM100 M3 PO (13:02)
[2017-09-25] MEDS ORDERED: INVANZ1 GM IV (13:02)
== END 2017-09-25 16:25 | disposition other institution (70) | DRG 871 ==
LOC: ED 19:46 → 4E 23:02 → EDHOLD 23:02 → 4E 23:12
PROVIDERS: Emergency Medicine; Family Medicine; Hospitalist; Internal Medicine; Internal Medicine Critical Care Medicine; Internal Medicine Hospice and Palliative Medicine
PROC: 0BC18ZZ Extirpation of Matter from Trachea, Via Natural or Artificial Opening Endoscopic (ICD-10-PCS; principal; 2017-09-22)
PROC: 0BC88ZZ Extirpation of Matter from Left Upper Lobe Bronchus, Via Natural or Artificial Opening Endoscopic (ICD-10-PCS; principal; 2017-09-22)
PROC: 0BCB8ZZ Extirpation of Matter from Left Lower Lobe Bronchus, Via Natural or Artificial Opening Endoscopic (ICD-10-PCS; principal; 2017-09-22)
PROC: 0BC58ZZ Extirpation of Matter from Right Middle Lobe Bronchus, Via Natural or Artificial Opening Endoscopic (ICD-10-PCS; principal; 2017-09-22)
PROC: 0BC68ZZ Extirpation of Matter from Right Lower Lobe Bronchus, Via Natural or Artificial Opening Endoscopic (ICD-10-PCS; principal; 2017-09-22)
PROC: 0BC48ZZ Extirpation of Matter from Right Upper Lobe Bronchus, Via Natural or Artificial Opening Endoscopic (ICD-10-PCS; principal; 2017-09-22)
PROC: 0BC28ZZ Extirpation of Matter from Carina, Via Natural or Artificial Opening Endoscopic (ICD-10-PCS; principal; 2017-09-22)
PROC: 0DB68ZX Excision of Stomach, Via Natural or Artificial Opening Endoscopic, Diagnostic (ICD-10-PCS; 2017-09-23)
PROC: 02HV33Z Insertion of Infusion Device into Superior Vena Cava, Percutaneous Approach (ICD-10-PCS; 2017-09-24)
DX: A41.9 Sepsis, unspecified organism (principal); J10.00 Influenza due to other identified influenza virus with unspecified type of pneumonia; J96.11 Chronic respiratory failure with hypoxia; B37.81 Candidal esophagitis; I11.0 Hypertensive heart disease with heart failure; Z93.0 Tracheostomy status; Z99.81 Dependence on supplemental oxygen; I50.32 Chronic diastolic (congestive) heart failure; F33.9 Major depressive disorder, recurrent, unspecified; J44.1 Chronic obstructive pulmonary disease with (acute) exacerbation; J44.0 Chronic obstructive pulmonary disease with (acute) lower respiratory infection; K25.3 Acute gastric ulcer without hemorrhage or perforation; E83.51 Hypocalcemia; R91.1 Solitary pulmonary nodule; E78.5 Hyperlipidemia, unspecified; E66.9 Obesity, unspecified; Z68.34 Body mass index [BMI] 34.0-34.9, adult; B96.1 Klebsiella pneumoniae [K. pneumoniae] as the cause of diseases classified elsewhere; J20.8 Acute bronchitis due to other specified organisms; K21.0 Gastro-esophageal reflux disease with esophagitis; G43.909 Migraine, unspecified, not intractable, without status migrainosus; I25.119 Atherosclerotic heart disease of native coronary artery with unspecified angina pectoris; G89.29 Other chronic pain; Z96.642 Presence of left artificial hip joint; E89.0 Postprocedural hypothyroidism; I25.2 Old myocardial infarction; Z79.899 Other long term (current) drug therapy; Z95.5 Presence of coronary angioplasty implant and graft; Z87.891 Personal history of nicotine dependence; Z82.49 Family history of ischemic heart disease and other diseases of the circulatory system; Z83.3 Family history of diabetes mellitus; Z80.8 Family history of malignant neoplasm of other organs or systems

== ENCOUNTER → 2017-10-20 | Outpatient (CLI) | payer MEDICARE ==
[~2017-10-20] MED LIST changes: +DULOXETINE HCL30 MG PO; +FLUCONAZOLE100 MG PO; +INVANZ1 GM IV; +PANTOPRAZOLE SO40 MG PO; +QUETIAPINE FUM100 M3 PO
== END | disposition home or self-care (01) ==
LOC: RESCLI 01:26
DX: Z09 Encounter for follow-up examination after completed treatment for conditions other than malignant neoplasm (principal); J96.11 Chronic respiratory failure with hypoxia; I10 Essential (primary) hypertension; F31.60 Bipolar disorder, current episode mixed, unspecified; R91.1 Solitary pulmonary nodule; G62.9 Polyneuropathy, unspecified; J43.9 Emphysema, unspecified; J42 Unspecified chronic bronchitis; R60.0 Localized edema; K59.00 Constipation, unspecified; E78.5 Hyperlipidemia, unspecified; I25.10 Atherosclerotic heart disease of native coronary artery without angina pectoris

== ENCOUNTER 2017-10-28 11:27 | Inpatient (IN) | payer MEDICARE ==
[~2017-10-28] VITALS: Ht 157.5 cm; Wt 85.3 kg
--- NOTE | ~2017-10-28 | CON ---
[place], [place] REPORT OF CONSULTATION NAME: RAYMUNDO HEATH [facility] #: [id number] UNIT #: [id number] ROOM: 421 DOCTOR: MARLON LUBIN MD BIRTHDATE: [birth year] DOS: 10/29/2017 PULMONARY CONSULTATION, EVALUATION AND MANAGEMENT REQUESTED BY: Hospitalist service. REASON FOR CONSULTATION: For assessment of the recurrence of respiratory symptoms. HISTORY OF PRESENT ILLNESS: A 62-year-old white female who was admitted to the hospital, treated and discharged the patient on 09/25/2017. The patient has been diagnosed with E. coli ESBL producing species for this patient. The patient was recommended about discharge to the nursing facility. The patient remained in the nursing facility for 6 days where the patient received antibiotic and then subsequently discharged home. She has been noted with the usual state of health as the patient reported having increased symptoms of shortness of breath at home, which has been occurring for the patient for the past day or so. Later, the patient started to have symptoms of fever or chills as well. The patient described nonspecific pain in the chest as well. She came into the hospital and was assessed in the Emergency Room yesterday and hospitalized for further medical management. She was also noted with mild elevation of lactic acid. Cough has been noted mild to moderate without any sputum expectoration. Denies symptoms of hemoptysis. REVIEW OF SYSTEMS: CONSTITUTIONAL: Complaining of fever or chills for this patient, but unable to tell me the exact temperature from home. Complaining of general weakness, fatigue. EYES: Denies any burning, redness, or tenderness. EARS, NOSE AND THROAT: Denies sore throat, hoarseness, otalgia, postnasal drainage or epistaxis. CARDIOVASCULAR: Denies angina pain, edema or pain in the lower extremity. GASTROINTESTINAL: Denies dysphagia, nausea, vomiting, diarrhea, abdominal pain, hematemesis, melena, or hematochezia. GENITOURINARY: No dysuria, suprapubic pain, hematuria. MUSCULOSKELETAL: The patient denies any acute joint pain, redness, or tenderness. SKIN: Denies any lesions or rashes. CENTRAL NERVOUS SYSTEM: General weakness and fatigue were reported without any focal neurologic deficit. Remaining systems were reviewed with the patient, they were noted all negative. PAST MEDICAL HISTORY: The patient was known with history of: 1. Longstanding COPD. 2. Chronic hypoxic respiratory failure, use of oxygen 2 liters nasal cannula. 3. Essential hypertension. 4. Hyperlipidemia. 5. Hypothyroidism. 6. Coronary artery disease with previous myocardial infarction. [place], [place] REPORT OF CONSULTATION NAME: RAYMUNDO HEATH UNIT #: [id number] ROOM: 421 DOCTOR: SAHIL HAMMOND MD,MARLON BIRTHDATE: [birth year] 7. Migraine headache. 8. Previous tracheostomy decannulation. PAST SURGICAL HISTORY: 1. Past tracheostomy decannulation. 2. Bilateral hip arthroplasties. 3. Therapeutic bronchoscopy, last one done in 08/19/2017. 4. Partial thyroidectomy. SOCIAL HISTORY: The patient is , has 2 children. Denies history of alcohol use, illicit drug use. Tobacco use noted since teens, a pack of cigarettes per day that was discontinued in 2016. Denies history of occupation related pulmonary exposure. FAMILY HISTORY: Father at the age 9090 years old, complication related to natural causes. Mother at the age of 6666 years old from unknown cancer. CURRENT MEDICATIONS: Administered to the patient was noted as use of vitamin D, Meloxicam, vitamin D, potassium chloride, Seroquel, metoprolol succinate, Cymbalta, gabapentin, Dulera, Protonix, heparin for DVT prophylaxis, Zithromax and Rocephin. DRUG ALLERGIES: The patient noted no known drug allergies. PHYSICAL EXAMINATION: GENERAL: A 62-year-old female who has been currently noted to be awake and alert, appeared to be ill. The patient's height was recorded as 5 feet 2 inches, weight 176 pounds, BMI 32.2. VITAL SIGNS: For the patient, which was recorded showed the temperature noted 100 degrees Fahrenheit on admission. Respiratory rate ranges between 18-28. The heart rate was noted tachycardia 129 beats per minute, on admission it was 64, blood pressure 164/83-97/72. The pulse oxygen saturation of the patient recorded as 95% on 4-liter nasal cannula. HEENT: Examination shows head was atraumatic. Eyes nonicterus. NECK: Supple. CARDIOVASCULAR: S1, S2 is audible. LUNGS: The patient was noted with a mild decreased breath sounds noted in the lungs bilaterally. There were no crackles heard. ABDOMEN: Noted soft, nontender. EXTREMITIES: Noted without any acute edema, clubbing or cyanosis. CENTRAL NERVOUS SYSTEM: Cranial nerves 2-12 intact. No focal deficit. SKIN: Visible skin, no lesions or rashes. MUSCULOSKELETAL SYMPTOMS: Without acute deformities. LABORATORY DATA: The arterial blood gas yesterday, 4 liters, pH of 7.37, pCO2 32, pO2 78.3. PT/PTT yesterday noted normal. Lactic acid 3.5, elevated. Follow up lactic acid 1.1. CMP that was done for the patient on 10/28/2017 shows glucose 147, BUN 9, creatinine 1.04. BUN and creatinine of the patient remains normal. CBC of the patient 10/28/2017, WBC count of 16.1 with 87% segmented neutrophils with differential, remaining CBC normal. The CBC of this [place], [place] REPORT OF CONSULTATION NAME: RAYMUNDO HEATH UNIT #: [id number] ROOM: [facility] DOCTOR: SAHIL HAMMOND MDMARLON BIRTHDATE: [birth year] morning: WBC count were normal. Hemoglobin 11.6 and hematocrit 35.7, platelet count was normal. CMP of the patient that was done this morning shows glucose 166. BUN and creatinine of the patient remains normal. The chest x-ray just 1 view of the patient that was done in the Emergency Room was noted with changes, hyperinflation and COPD for this patient. Right apical density for the patient was still noted as previously noted on CT scan of the chest for the patient that was present on 09/24/2017. IMPRESSION: 1. The patient who has been currently noted with findings certainly consistent with acute sepsis of the patient with acute tracheobronchitis, exacerbation of chronic obstructive pulmonary disease, noted no gross pulmonary infiltration of the patient visible at least on the chest x-ray; however, underlying pneumonia cannot be completely excluded. 2. Right upper lung nodular density for the patient was also noted, significance unknown. Possibility of slow growing malignancy can be completely excluded. 3. History of tobacco dependence until 2016. 4. Chronic hypoxic respiratory failure as well. PLAN OF TREATMENT: The patient seemed to be doing better. The patient's current antibiotic will be closely monitored, has been previous noted ESBL isolated with the sputum culture and the bronchial washing of the patient treated with intravenous antibiotics, effective completion of the course. Certainly, the patient does show worsening of the symptom would require the changes in the antibiotic. Until this time for the patient, no changes need to be done. Continuation of other supportive therapy, plan of management, care plan. The patient has already made for this patient. Bronchodilator will be continued. Monitor labs closely. Supportive therapy, plan of management, other care plan. Additional treatment changes to be done based on the progression of the illnesses. MARLON BAXTER MD CM:CONSTR:REPORT OF CONSULTATION 1223 10/29/17 2213 interface
--- NOTE | ~2017-10-28 | PR ---
[place], [place] PROGRESS NOTE [id number] UNIT #: [id number] ROOM: 421 DOCTOR: SAHIL HAMMOND MD,MARLON BIRTHDATE: [birth year] DOS: 10/30/2017 PULMONARY PROGRESS NOTE SUBJECTIVE: She was noted comfortable this morning with reduction in symptoms of shortness of breath reported. Denies symptoms of chest pain. Denies any abdominal pain. OBJECTIVE: VITAL SIGNS: For the patient which has been recorded showed normal temperature, respiratory rate 20, heart rate 73, blood pressure 157/90 to 113/60. Pulse oxygen saturation on 4 liters nasal cannula was 98% saturation. HEENT: No acute change. NECK: Supple. CARDIOVASCULAR: S1, S2 audible. LUNGS: Noted [id number] decreased breath sounds and scattered crackles with expiratory wheezing. ABDOMEN: Soft, nontender. IMPRESSION: 1. The patient with acute sepsis. 2. Acute exacerbation of chronic obstructive pulmonary disease. 3. Right upper lung nodule is also noted as well. 4. Previous history of nicotine abuse. 5. Obesity. PLAN OF THERAPY: Continuation of the bronchodilator with oxygen supplementation and the antibiotics. Continuation of the oxygen to maintain saturation of oxygen 92% greater. Monitoring the overall clinical status prior to suggestion of making any additional changes in the treatment. MARLON BAXTER MD CM:PNTRANS [id number] MARLON HAMMOND MD 10/31/17 0621 interface
--- NOTE | ~2017-10-28 | PR ---
[place], [place] PROGRESS NOTE NAME: RAYMUNDO HEATH UNIT #: [id number] ROOM: 421 DOCTOR: SAHIL HAMMOND MD,MARLON BIRTHDATE: [birth year] DOS: 11/03/2017 SUBJECTIVE: The patient remains asymptomatic at this time, doing very well with minimal cough. Denies any acute shortness of breath. Denies symptoms of wheezing or chest pain. OBJECTIVE: VITAL SIGNS: For the patient which has been recorded shows a normal temperature, respiratory rate 20, heart rate 66, blood pressure 162/92. Pulse oxygen saturation of the patient noted on room air 99% saturation. HEENT: Examination shows head was atraumatic. Eyes nonicterus. NECK: Supple. CARDIOVASCULAR: S1, S2 audible. LUNGS: Noted clear of any abnormal wheezing or crackles. ABDOMEN: Soft and nontender. EXTREMITIES: Without any acute edema. LABORATORY DATA: CBC today, normal WBC count, hemoglobin 11, and platelet count normal. BMP: BUN 27, creatinine was normal. Electrolytes normal. IMPRESSION: 1. The patient with ESBL producing patient, Klebsiella pneumoniae was isolated, possibility of colonization cannot be completely excluded. 2. The patient resolving exacerbation of chronic obstructive pulmonary disease and bronchial asthma. PLAN OF MANAGEMENT: The patient could be considered for changing to Augmentin for the patient and possible consideration for home discharge. The patient refusing to go to any Assisted Facility at this time and only like to be discharged home. The discharge planning was discussed with Dr. Martinez. MARLON BAXTER MD CM:PNTRANS [id number] MARLON HAMMOND MD 11/03/171919 interface
--- NOTE | ~2017-10-28 | PR ---
[place], [place] PROGRESS NOTE [id number] UN[facility] #: [id number] ROOM: 421 DOCTOR: SAHIL HAMMOND MD,MARLON BIRTHDATE: [birth year] DOS: 10/31/2017 SUBJECTIVE: She has been doing better with reduction in symptoms of coughing, shortness of breath, wheezing, general weakness, fatigue. Denies chest pain or abdominal pain. OBJECTIVE: VITAL SIGNS: Normal temperature, respiratory rate 20, heart rate 72, blood pressure 155/79. Pulse oxygen saturation 3 liters nasal cannula 97% saturation. HEENT: No acute change. NECK: Supple. CARDIOVASCULAR: S1, S2 is audible. LUNGS: The patient noted without any wheezing or crackles at this time. Breaths are noted [id number] diminished bilaterally. ABDOMEN: Soft, nontender. EXTREMITIES: Without any acute edema. IMPRESSION: The patient with progressive improvement in the respiratory symptom was noted with acute exacerbation of chronic obstructive pulmonary disease, acute bronchitis, improving overall debility as well. PLAN OF MANAGEMENT: The dose of steroids has been decreased 30 mg Solu-Medrol b.i.d. from 60 mg b.i.d. Followup for this patient with current reduction of the medication for the respiratory symptom progression. If the patient does well, she could be considered for home discharge from the pulmonary standpoint. MARLON BAXTER MD CM:PNTRANS [id number] MARLON HAMMOND MD 11/09/17 0845 interface
--- NOTE | ~2017-10-28 | PR ---
[place], [place] PROGRESS NOTE NAME: RAYMUNDO HEATH UNIT #: [id number] ROOM: 421 DOCTOR: MARLON LUBIN MD BIRTHDATE: [birth year] DOS: 11/01/2017 SUBJECTIVE: The patient was noted comfortable at this time without any acute distress. She stated gradual reduction and improvement in the respiratory symptom. Denies symptoms of chest pain or any abdominal pain. OBJECTIVE: VITAL SIGNS: Showed normal temperature, respiratory rate 18, heart rate 73, blood pressure 130/68. The pulse oxygen saturation on 3 liters nasal cannula 99% saturation. HEENT: Showed no acute change. NECK: Supple. CARDIOVASCULAR: S1, S2 audible. LUNGS: The patient was noted without any wheeze or crackles. ABDOMEN: Soft, nontender. EXTREMITIES: Without any acute edema. LABORATORY DATA: Culture of the sputum for the patient noted light growth of Klebsiella, which is ESBL species. CBC of the patient noted as normal. BMP of the patient was noted with BUN 25, creatinine was normal. IMPRESSION: 1. The patient with acute bronchitis with Klebsiella pneumoniae, which was rather noted extended spectrum beta-lactamase, but noted sensitive to Augmentin as well. 2. Acute exacerbation of chronic obstructive pulmonary disease. PLAN OF TREATMENT: Discontinuation of the other antibiotic. The patient will be started on oral Augmentin 875 mg p.o. b.i.d. Other therapy and plan of management to be continued for the patient as well. Continue current dose of steroids, which have been gradually decreased. She was suggested about senior living facility placement for further continued care, but the patient declined that. In the meantime, all other previous treatment therapy to continue. Usual care. [place], [place] PROGRESS NOTE NAME: RAYMUNDO HEATH UNIT #: [id number] ROOM: 421 DOCTOR: MARLON LUBIN MD BIRTHDATE: [birth year] MARLON BAXTER MD CM:PNTRANS [id number] MARLON HAMMOND MD 11/02/17 0512 interface
--- NOTE | ~2017-10-28 | PR ---
[place], [place] PROGRESS NOTE NAME: RAYMUNDO HEATH UNIT #: [id number] ROOM: 421 DOCTOR: SAHIL HAMMOND MD,MARLON BIRTHDATE: [birth year] DOS: 11/02/2017 SUBJECTIVE: She has been noted with reduction in the cough gradually. Shortness of breath has been improving. Denies symptoms of chest pain or abdominal pain. She is refusing for nursing home facility placement or other intervention and would like to be discharged home. OBJECTIVE: VITAL SIGNS: Normal temperature, respiratory rate 20, heart rate 71, blood pressure 140/72. Pulse oxygen saturation on 3 liters nasal cannula 96% saturation. HEENT: No new change. NECK: Supple. CARDIOVASCULAR: S1, S2 audible. LUNGS: Noted scattered occasional crackles and wheezing. ABDOMEN: Soft, nontender. IMPRESSION: 1. Stable respiratory status with acute tracheobronchitis with Klebsiella pneumonia noted extended spectrum beta-lactamase, currently getting the Augmentin. 2. Resolving acute exacerbation of chronic obstructive pulmonary disease progressively. PLAN OF TREATMENT: Change the patient's corticosteroids, Solu-Medrol to 40 mg daily dose. Plan to discharge the patient possibly with home health. Other treatment plan of management and care plan. Usual treatment. Supportive therapy, other plan of care. MARLON BAXTER MD CM:PNTRANS [id number] MARLON HAMMOND MD 11/02/17 230 interface
[2017-10-28 11:35] VITALS: BP 164/83
[2017-10-28 12:25] LABS: HEMATOCRIT 39.3 % (37.0-47.0); HEMOGLOBIN 12.6 g/dl (12.0-16.0); MEAN CELL VOLUME 89.7 fl (81.0-99.0); MEAN CORPUSCULAR HGB 28.8 pg (27.0-31.0); MEAN CORPUSCULAR HGB CONC 32.1 g/dl (33.0-37.0); MEAN PLATELET VOLUME 10.1 fl (9.6-12.3); PLATELET COUNT AUTOMATED 195 10*3/uL (130-400); RED BLOOD COUNT 4.38 10*6/uL (4.10-5.10); RED CELL DISTRI WIDTH 14.3 % (0-14.5); WHITE BLOOD COUNT 16.1 10*3/uL (4.8-10.8)
[2017-10-28 12:26] LABS: ABG HCO3 18.9 mmol/l (22-26); ABG O2 SATURATION 95.9 % (95-97); ARTERIAL BLOOD GAS PCO2 32.8 mmHg (35-45); ARTERIAL BLOOD GAS PH 7.376 (7.35-7.45); ARTERIAL BLOOD GAS PO2 78.3 mmHg (80-90)
[2017-10-28 12:27] LABS: ABG BASE EXCESS -5.1 mmol/L (-2.0-2.0)
[2017-10-28 12:32] LABS: ACT PARTIAL THROMBO TIME 26.3 SECONDS (20.8-31.5)
[2017-10-28 12:40] LABS: ALBUMIN 3.1 gm/dl (3.1-4.5); ALKALINE PHOSPHATASE 121 U/L (45-117); BUN 9 mg/dl (7-24); CHLORIDE 109 mmol/L (98-107); CREATININE 1.04 mg/dL (0.55-1.02); POTASSIUM 3.9 mmol/L (3.5-5.1); SGOT/AST 17 IU/L (3-35); SGPT/ALT 18 U/L (12-78); SODIUM 139 mmol/L (136-145); TOTAL PROTEIN 6.8 gm/dL (6.4-8.2)
[2017-10-28 12:41] LABS: TROPONIN I < 0.015 ng/ml (<0.045)
[2017-10-28 12:51] LABS: OVALOCYTES FEW; PLATELET SUFFICIENCY NORMAL (NORMAL); TOTAL CELLS COUNTED 100 #CELLS
[2017-10-28 13:07] VITALS: BP 160/80; BP 164/83
[2017-10-28 14:00] VITALS: BP 121/60
[2017-10-28] MEDS ORDERED: MELOXICAM15 MG PO (14:05)
[2017-10-28] MEDS ORDERED: MIRALAX POWDER255 G1 PO (14:06)
[2017-10-28] MEDS ORDERED: TOPROL XL25 MG PO (14:06)
[2017-10-28] MEDS ORDERED: SEROQUEL XR150 MG PO (14:08)
[2017-10-28 16:00] VITALS: BP 124/62
[2017-10-28 20:06] VITALS: BP 111/63
[2017-10-29] VITALS: BP 144/75
[2017-10-29 05:41] LABS: BILIRUBIN NEGATIVE (NEGATIVE); BLOOD NEGATIVE (NEGATIVE); CLARITY SL CLOUDY (CLEAR); COLOR YELLOW (YELLOW); GLUCOSE NEGATIVE (NEGATIVE); KETONE NEGATIVE (NEGATIVE); LEUKO ESTERASE NEGATIVE (NEGATIVE); NITRITE NEGATIVE (NEGATIVE); UROBILINOGEN 0.2 E.U./dl (0.2-1.0)
[2017-10-29 05:51] LABS: BACTERIA 1+; WBC 16-20 wbc/hpf (0-5)
[2017-10-29 08:00] VITALS: BP 97/72
[2017-10-29 08:14] LABS: HEMATOCRIT 35.7 % (37.0-47.0); HEMOGLOBIN 11.6 g/dl (12.0-16.0); MEAN CELL VOLUME 87.5 fl (81.0-99.0); MEAN CORPUSCULAR HGB 28.4 pg (27.0-31.0); MEAN CORPUSCULAR HGB CONC 32.5 g/dl (33.0-37.0); MEAN PLATELET VOLUME 10.5 fl (9.6-12.3); PLATELET COUNT AUTOMATED 174 10*3/uL (130-400); RED BLOOD COUNT 4.08 10*6/uL (4.10-5.10); RED CELL DISTRI WIDTH 14.1 % (0-14.5); WHITE BLOOD COUNT 8.3 10*3/uL (4.8-10.8)
[2017-10-29 08:43] LABS: OVALOCYTES FEW; PLATELET SUFFICIENCY NORMAL (NORMAL); TOTAL CELLS COUNTED 100 #CELLS
[2017-10-29 08:55] LABS: ALBUMIN 2.9 gm/dl (3.1-4.5); ALKALINE PHOSPHATASE 107 U/L (45-117); BUN 14 mg/dl (7-24); CHLORIDE 112 mmol/L (98-107); CHOLESTEROL 155 mg/dL (<200); CREATININE 0.87 mg/dL (0.55-1.02); HDL CHOLESTEROL 45 mg/dl (40-60); LDL CHOLESTEROL 94 mg/dL (9-159); PHOSPHOROUS 1.9 mg/dL (2.5-4.9); POTASSIUM 3.8 mmol/L (3.5-5.1); SGOT/AST 12 IU/L (3-35); SGPT/ALT 16 U/L (12-78); SODIUM 143 mmol/L (136-145); TOTAL PROTEIN 6.7 gm/dL (6.4-8.2); TRIGLYCERIDES 81 mg/dl (<150); VLDL CHOLESTEROL 16 mg/dL (6-40)
[2017-10-29 09:04] LABS: VITAMIN D, 25-HYDROXY 8.3 ng/mL (30-100)
[2017-10-29 12:19] VITALS: BP 148/68
[2017-10-29 16:00] VITALS: BP 153/89
[2017-10-29 20:00] VITALS: BP 168/86
[2017-10-30] VITALS: BP 139/60
[2017-10-30 06:39] LABS: HEMATOCRIT 35.9 % (37.0-47.0); HEMOGLOBIN 11.6 g/dl (12.0-16.0); MEAN CELL VOLUME 88.2 fl (81.0-99.0); MEAN CORPUSCULAR HGB 28.5 pg (27.0-31.0); MEAN CORPUSCULAR HGB CONC 32.3 g/dl (33.0-37.0); MEAN PLATELET VOLUME 10.7 fl (9.6-12.3); PLATELET COUNT AUTOMATED 172 10*3/uL (130-400); RED BLOOD COUNT 4.07 10*6/uL (4.10-5.10); RED CELL DISTRI WIDTH 14.3 % (0-14.5); WHITE BLOOD COUNT 10.7 10*3/uL (4.8-10.8)
[2017-10-30 06:48] LABS: ALBUMIN 3.1 gm/dl (3.1-4.5); ALKALINE PHOSPHATASE 94 U/L (45-117); BUN 16 mg/dl (7-24); CHLORIDE 113 mmol/L (98-107); CREATININE 0.95 mg/dL (0.55-1.02); PHOSPHOROUS 2.7 mg/dL (2.5-4.9); POTASSIUM 3.7 mmol/L (3.5-5.1); SGOT/AST 13 IU/L (3-35); SGPT/ALT 19 U/L (12-78); SODIUM 144 mmol/L (136-145); TOTAL PROTEIN 6.5 gm/dL (6.4-8.2)
[2017-10-30 07:53] LABS: PLATELET SUFFICIENCY NORMAL (NORMAL); TOTAL CELLS COUNTED 100 #CELLS
[2017-10-30 08:00] VITALS: BP 157/92
[2017-10-30 12:00] VITALS: BP 144/79
[2017-10-30 16:00] VITALS: BP 145/73
[2017-10-30 20:00] VITALS: BP 168/80
[2017-10-31] VITALS: BP 158/68
[2017-10-31 08:00] VITALS: BP 155/79
[2017-10-31 12:00] VITALS: BP 101/79
[2017-10-31 16:00] VITALS: BP 169/91
[2017-10-31 20:00] VITALS: BP 154/89
[2017-11-01] VITALS: BP 150/76
[2017-11-01 06:22] LABS: BASO % 0.1 % (0.0-1.0); HEMATOCRIT 33.8 % (37.0-47.0); HEMOGLOBIN 11.1 g/dl (12.0-16.0); LYMPH # 0.8 10*3/uL (1.3-4.4); MEAN CELL VOLUME 88.3 fl (81.0-99.0); MEAN CORPUSCULAR HGB CONC 32.8 g/dl (33.0-37.0); MEAN PLATELET VOLUME 10.8 fl (9.6-12.3); MONO # 0.5 10*3/uL (0.1-1.0); MONO % 6.3 % (3.0-9.0); NEUT # 6.7 10*3/uL (2.3-7.9); NEUT % 82.7 % (47.0-73.0); PLATELET COUNT AUTOMATED 160 10*3/uL (130-400); RED BLOOD COUNT 3.83 10*6/uL (4.10-5.10); RED CELL DISTRI WIDTH 14.2 % (0-14.5); WHITE BLOOD COUNT 8.1 10*3/uL (4.8-10.8)
[2017-11-01 06:34] LABS: CHLORIDE 106 mmol/L (98-107); CREATININE 0.77 mg/dL (0.55-1.02); POTASSIUM 4.2 mmol/L (3.5-5.1); SODIUM 142 mmol/L (136-145)
[2017-11-01 06:51] LABS: BUN 25 mg/dl (7-24)
[2017-11-01 07:48] VITALS: BP 156/69
[2017-11-01 12:00] VITALS: BP 130/68
[2017-11-01 16:00] VITALS: BP 124/59
[2017-11-01 20:00] VITALS: BP 134/72
[2017-11-02] VITALS: BP 156/68
[2017-11-02 08:00] VITALS: BP 148/72
[2017-11-02 12:00] VITALS: BP 126/70
[2017-11-02 16:00] VITALS: BP 112/51
[2017-11-02 20:00] VITALS: BP 124/47
[2017-11-03] VITALS: BP 141/63
[2017-11-03 06:47] LABS: BASO % 0.1 % (0.0-1.0); HEMATOCRIT 35.1 % (37.0-47.0); HEMOGLOBIN 11.3 g/dl (12.0-16.0); LYMPH # 0.7 10*3/uL (1.3-4.4); LYMPH % 8.7 % (27.0-41.0); MEAN CELL VOLUME 88.4 fl (81.0-99.0); MEAN CORPUSCULAR HGB 28.5 pg (27.0-31.0); MEAN CORPUSCULAR HGB CONC 32.2 g/dl (33.0-37.0); MEAN PLATELET VOLUME 10.6 fl (9.6-12.3); MONO # 0.4 10*3/uL (0.1-1.0); MONO % 5.4 % (3.0-9.0); NEUT # 6.4 10*3/uL (2.3-7.9); PLATELET COUNT AUTOMATED 165 10*3/uL (130-400); RED BLOOD COUNT 3.97 10*6/uL (4.10-5.10); RED CELL DISTRI WIDTH 14.2 % (0-14.5); WHITE BLOOD COUNT 7.6 10*3/uL (4.8-10.8)
[2017-11-03 06:59] LABS: BUN 27 mg/dl (7-24); CHLORIDE 106 mmol/L (98-107); CREATININE 0.85 mg/dL (0.55-1.02); POTASSIUM 4.2 mmol/L (3.5-5.1); SODIUM 144 mmol/L (136-145)
[2017-11-03 08:00] VITALS: BP 162/92
[2017-11-03] MEDS ORDERED: AUGMENTIN 875875 MG PO (11:01)
[2017-11-03] MEDS ORDERED: QUETIAPINE FUMA25 MG PO (11:01)
[2017-11-03] MEDS ORDERED: VITAMIN D-32000 UNIT PO (11:01)
[2017-11-03] MEDS ORDERED: PREDNISONE10 MG PO (11:01)
[2017-11-03 12:00] VITALS: BP 108/47
== END 2017-11-03 16:10 | disposition home or self-care (01) | DRG 871 ==
LOC: ED 11:27 → EDHOLD 13:10 → 4E 13:10
PROVIDERS: Emergency Medicine; Hospitalist; Internal Medicine; Internal Medicine Hospice and Palliative Medicine; Registered Nurse
DX: A41.9 Sepsis, unspecified organism (principal); J18.9 Pneumonia, unspecified organism; N17.0 Acute kidney failure with tubular necrosis; J96.11 Chronic respiratory failure with hypoxia; E44.0 Moderate protein-calorie malnutrition; E87.2 Acidosis; E87.8 Other disorders of electrolyte and fluid balance, not elsewhere classified; I50.32 Chronic diastolic (congestive) heart failure; J44.0 Chronic obstructive pulmonary disease with (acute) lower respiratory infection; J44.1 Chronic obstructive pulmonary disease with (acute) exacerbation; Z99.81 Dependence on supplemental oxygen; I11.0 Hypertensive heart disease with heart failure; R65.20 Severe sepsis without septic shock; K21.9 Gastro-esophageal reflux disease without esophagitis; J20.9 Acute bronchitis, unspecified; K25.7 Chronic gastric ulcer without hemorrhage or perforation; I25.10 Atherosclerotic heart disease of native coronary artery without angina pectoris; E78.2 Mixed hyperlipidemia; R91.1 Solitary pulmonary nodule; B96.1 Klebsiella pneumoniae [K. pneumoniae] as the cause of diseases classified elsewhere; R73.9 Hyperglycemia, unspecified; E55.9 Vitamin D deficiency, unspecified; Z16.12 Extended spectrum beta lactamase (ESBL) resistance; G43.909 Migraine, unspecified, not intractable, without status migrainosus; E89.0 Postprocedural hypothyroidism; Z96.642 Presence of left artificial hip joint; E66.9 Obesity, unspecified; Z68.32 Body mass index [BMI] 32.0-32.9, adult; I25.2 Old myocardial infarction; Z95.5 Presence of coronary angioplasty implant and graft; Z87.891 Personal history of nicotine dependence; Z79.899 Other long term (current) drug therapy; Z82.49 Family history of ischemic heart disease and other diseases of the circulatory system; Z83.3 Family history of diabetes mellitus; Z80.8 Family history of malignant neoplasm of other organs or systems

== ENCOUNTER 2017-11-23 18:08 | Emergency (ER) | payer MEDICARE ==
[~2017-11-23] VITALS: Ht 154.9 cm; Wt 79.8 kg
--- NOTE | ~2017-11-23 | EKG ---
[place], [place] ELECTROCARDIOGRAM REPORT NAME: RAYMUNDO HEATH UNIT #: [id number] ROOM: DOCTOR: SAHIL HAMMOND MD,MARLON BIRTHDATE: [birth year] DOS: 11/23/2017 ELECTROCARDIOGRAM The electrocardiogram was done on 11/23/2017, at 6:59 p.m. Normal sinus rhythm was noted with heart rate 98 beats per minute. Left anterior fascicular block was noted. MARLON BAXTER MD CM:EKGRPT:ELECTROCARDIOGRAM REPORT [id number] MARLON HAMMOND MD
[~2017-11-23 18:08] MED LIST changes: +AUGMENTIN 875875 MG PO; +MIRALAX POWDER255 G1 PO; +QUETIAPINE FUMA25 MG PO; +VITAMIN D-32000 UNIT PO
[2017-11-23 18:16] VITALS: BP 151/77
[2017-11-23 19:05] LABS: BASO % 0.3 % (0.0-1.0); EOS # 0.2 10*3/uL (0.0-0.4); EOS % 2.2 % (1.0-4.0); HEMATOCRIT 35.9 % (37.0-47.0); HEMOGLOBIN 11.5 g/dl (12.0-16.0); LYMPH # 1.4 10*3/uL (1.3-4.4); LYMPH % 15.5 % (27.0-41.0); MEAN CELL VOLUME 89.1 fl (81.0-99.0); MEAN CORPUSCULAR HGB 28.5 pg (27.0-31.0); MEAN PLATELET VOLUME 10.2 fl (9.6-12.3); MONO # 0.5 10*3/uL (0.1-1.0); MONO % 5.1 % (3.0-9.0); NEUT # 6.8 10*3/uL (2.3-7.9); NEUT % 76.3 % (47.0-73.0); PLATELET COUNT AUTOMATED 238 10*3/uL (130-400); RED BLOOD COUNT 4.03 10*6/uL (4.10-5.10); RED CELL DISTRI WIDTH 14.8 % (0-14.5); WHITE BLOOD COUNT 8.9 10*3/uL (4.8-10.8)
[2017-11-23 19:15] LABS: ACT PARTIAL THROMBO TIME 27.1 SECONDS (20.8-31.5)
[2017-11-23 19:24] LABS: ALBUMIN 3.4 gm/dl (3.1-4.5); ALKALINE PHOSPHATASE 106 U/L (45-117); BUN 11 mg/dl (7-24); CHLORIDE 114 mmol/L (98-107); CREATININE 0.89 mg/dL (0.55-1.02); LIPASE 95 U/L (73-393); SGOT/AST 16 IU/L (3-35); SGPT/ALT 14 U/L (12-78); SODIUM 142 mmol/L (136-145); TOTAL PROTEIN 6.9 gm/dL (6.4-8.2)
[2017-11-23 19:31] LABS: BILIRUBIN NEGATIVE (NEGATIVE); BLOOD NEGATIVE (NEGATIVE); CLARITY CLEAR (CLEAR); COLOR YELLOW (YELLOW); GLUCOSE NEGATIVE (NEGATIVE); KETONE NEGATIVE (NEGATIVE); LEUKO ESTERASE TRACE (NEGATIVE); NITRITE NEGATIVE (NEGATIVE); PH 5.5 (5.0-9.0); UROBILINOGEN 0.2 E.U./dl (0.2-1.0)
[2017-11-23 19:32] LABS: TROPONIN I < 0.015 ng/ml (<0.045)
[2017-11-23 19:52] LABS: BACTERIA TRACE
== END 2017-11-23 20:29 | disposition home or self-care (01) ==
LOC: ED 18:08
PROVIDERS: Nurse Practitioner Family
DX: J44.9 Chronic obstructive pulmonary disease, unspecified (principal); I25.10 Atherosclerotic heart disease of native coronary artery without angina pectoris; I11.0 Hypertensive heart disease with heart failure; K21.9 Gastro-esophageal reflux disease without esophagitis; I25.2 Old myocardial infarction; E78.5 Hyperlipidemia, unspecified; I50.32 Chronic diastolic (congestive) heart failure; E66.01 Morbid (severe) obesity due to excess calories; Z68.39 Body mass index [BMI] 39.0-39.9, adult; Z79.899 Other long term (current) drug therapy; Z87.891 Personal history of nicotine dependence

== ENCOUNTER 2017-12-01 15:39 | Inpatient (IN) | payer MEDICARE ==
[~2017-12-01] VITALS: Ht 154.9 cm; Wt 83.7 kg
--- NOTE | ~2017-12-01 | PR ---
[place], [place] PROGRESS NOTE NAME: RAYMUNDO HEATH UNIT #: [id number] ROOM: 530 DOCTOR: SAHIL HAMMOND MD,MARLON BIRTHDATE: [birth year] DOS: 12/04/2017 PULMONARY PROGRESS NOTE SUBJECTIVE: The patient was noted comfortable at this time, doing very well. In the past couple of days, reduction of symptoms of shortness of breath, coughing as well as sputum expectoration. OBJECTIVE: VITAL SIGNS: Normal temperature, respiratory rate 20, heart rate 78, blood pressure 140/100-165/89. The pulse oxygen saturation recorded as 100% on 3 liters cannula. HEENT: No acute change. CARDIOVASCULAR: S1, S2 audible. LUNGS: Without any wheeze or crackles at the present time. ABDOMEN: Soft, nontender. EXTREMITIES: Without any acute edema. IMPRESSION: The patient has been currently noted with a resolving acute exacerbation of chronic obstructive pulmonary disease, acute bronchitis with marked improvement and resolution of acute symptoms has been continued. PLAN OF MANAGEMENT: The patient could be discharged home, whenever desired. From the pulmonary standpoint, tapering prednisone and antibiotics. Continue other therapy, plan of management, and care plan. MARLON BAXTER MD CM:PNTRANS [id number] MARLON HAMMOND MD 12/05/17 0149 interface
--- NOTE | ~2017-12-01 | CON ---
[place], [place] REPORT OF CONSULTATION [facility]: [facility]DO [id number] UNIT #: [id number] ROOM: 530 DOCTOR: MARLON LUBIN MD BIRTHDATE: [birth year] DOS: 12/02/2017 PULMONARY CONSULTATION EVALUATION AND MANAGEMENT REASON FOR ADMISSION: To assess the patient for increased respiratory symptom. HISTORY OF PRESENT ILLNESS: This is a 62-year-old white female patient known to me with her previous hospitalization. The patient has been admitted to this hospital previously, treated and discharged on 11/11/2017. She stated that she came into the Emergency Room on 11/23/2017. She was reported with symptoms of shortness of breath with chest congestion, coughing, and wheezing. She was seen in the Emergency Room and discharged home after giving intravenous Solu-Medrol and she was also given tapering dose of prednisone, which are noted in the prescription as well as Augmentin. The patient stated that she had not taken any of those medications. She presented back to the Emergency Room on 12/01/2017, as she has noted progression of the respiratory symptom with excessive chest congestion, coughing with shortness of breath. The shortness of breath has been noted occurring with mild exertion and sometimes at rest as well. These symptoms are also associated with wheezing as well. She denies symptoms of hemoptysis. Denies any symptoms of chest pain, but chest tightness was reported. REVIEW OF SYSTEMS: CONSTITUTIONAL SYMPTOMS: Fatigue and tiredness reported without any symptoms of fever or chills. EYES: Denies any burning, redness, or tenderness. EARS, NOSE, AND THROAT SYMPTOMS: No sore throat, hoarseness, otalgia, postnasal drainage, or epistaxis. CARDIOVASCULAR: No anginal pain, edema, or pain in the lower extremities. GASTROINTESTINAL SYMPTOMS: No dysphagia, nausea, vomiting, diarrhea, abdominal pain, hematemesis, melena, or hematochezia. SKIN: Denies abnormal lesions or rashes. MUSCULOSKELETAL SYMPTOMS: Without acute deformities. CENTRAL NERVOUS SYSTEM: No dizziness, headache, or diplopia. Generalized weakness and fatigue were reported. Remaining systems were reviewed. They were noted all negative. PAST MEDICAL HISTORY: 1. Longstanding COPD. 2. Chronic hypoxic respiratory failure, use of oxygen supplementation via 2-liter nasal cannula. 3. Essential hypertension. 4. Hyperlipidemia. 5. Hypothyroidism. 6. Coronary artery disease. 7. Migrainous headache. 8. Past tracheostomy with subsequent decannulation. PAST SURGICAL HISTORY: [place], [place] REPORT OF CONSULTATION NAME: RAYMUNDO HEATH UNIT #: [id number] ROOM: [facility] DOCTOR: MARLON LUBIN MD BIRTHDATE: [birth year] 1. Past tracheostomy decannulation. 2. Bilateral hip arthroplasties. 3. Therapeutic bronchoscopies. 4. Partial thyroidectomy. SOCIAL HISTORY: The patient is , has 2 children, lives at home. Smoking was noted since teens 1 pack of cigarettes a day until 2016. Denies history of alcohol use or illicit drug use. FAMILY HISTORY: The patient's father at 90 years old rather related to natural causes. The mother at the age of 6666 years old from unknown cancer. HOME MEDICATIONS: The medication reconciliation was reviewed and listed as use of ProAir HFA inhaler, Symbicort HFA inhaler, DuoNeb, Combivent, Anoro Ellipta, Colace, Cymbalta, gabapentin, Meloxicam, Protonix, and MiraLax. DRUG ALLERGIES: Noted no known drug allergies. CURRENT MEDICATIONS: Administered were noted as use of Solu-Medrol 60 mg b.i.d., DuoNeb q. 4 hours, Zithromax, Rocephin, temazepam, and enoxaparin. PHYSICAL EXAMINATION: GENERAL: A 62-year-old white female who has been noted currently awake and alert. Coughing was noted with chest congestion, not expectorating sputum, without any acute distress. Height of 5 feet 1 inch, weight of 191 pounds. VITAL SIGNS: Show a normal temperature, respiratory rate range between 18-24, heart rate of 93-70, blood pressure 156/86 to 113/85. Pulse oxygen saturation on 3-liter nasal cannula was 87% and this morning noted 98% saturation. HEENT: Examination shows head was atraumatic. Eyes nonicterus. NECK: Supple. CARDIOVASCULAR SYSTEM: S1, S2 is audible. LUNGS: Noted with moderate decreased breath sounds and diffuse expiratory wheezing. There were no crackles. ABDOMEN: Soft, nontender. Bowel sounds present. EXTREMITIES: The patient was noted without any acute edema, clubbing, or cyanosis. VISIBLE SKIN: No lesions or rashes. MUSCULOSKELETAL SYMPTOMS: The patient was noted without any acute deformities. CENTRAL NERVOUS SYSTEM: Cranial nerves 2-12 intact. LABORATORY DATA: Arterial blood gas on 3-liter nasal cannula, pH of 7.39, pCO2 of 41, pO2 of 102; this was done in the Emergency Room. CBC on 12/01/2017, WBC count 7.5, hemoglobin 11.5, hematocrit 35.2, platelet count 213,000. CMP on 12/01/2017, normal BUN and creatinine. Calcium was 8.3. BMP noted as normal BUN and creatinine. Chloride of 109. CBC of this morning, WBC count normal, hemoglobin 11.9, hematocrit 37.6, platelet count of 211,000. Chest x-ray 1 view that was done on this admission was reviewed, does not show any acute pulmonary abnormalities. 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 However, the bronchoscopy done in 09/2017 does not isolate any abnormal organisms. The culture of the sputum was noted with light growth of Klebsiella pneumoniae on [place], [place] REPORT OF CONSULTATION NAME: RAYMUNDO HEATH UNIT #: [id number] ROOM: [facility] DOCTOR: SAHIL [facility] BIRTH[facility]: [birth year] last admission, which was noted with ESBL species. IMPRESSION: 1. The patient has been noted with recurrent infection with acute tracheobronchitis suggestive with recurrence of acute exacerbation of chronic obstructive pulmonary disease with possible consideration of recurrence of the ESBL species and Klebsiella pneumoniae may be the most likely reason. 2. History of chronic hypoxic respiratory failure, on oxygen supplementation with current worsening with superimposed acute hypoxic respiratory failure. 3. The patient with past history of nicotine abuse. 4. 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 The patient with a repeat bronchoscopy in 09/2017, where this patient has Mycobacterium avium complex infection at this time was unknown. The CT scan of 09/20/2007 was reviewed at that time, does not show any acute infection; however, tubular density was noted in the right upper lung. Emphysema changes were also noted. PLAN OF MANAGEMENT: The patient will be started on intravenous meropenem at this time. Continue corticosteroids. Bronchodilators will be continued. Discontinue the Zithromax and the Rocephin at this time. CT scan of the chest needs to be repeated again to assess the current tubular density, which is noted in the right upper lung. Unfortunately, the patient failed to establish an appointment in the office and has not been seen in my office since 2003 and she has been told all the admissions recently which she had been seen to make an appointment for further assessment. Bronchodilator will be continued. Order the sputum for Gram stain and cultures as well. CT scan of the chest will be done without contrast with high resolution images to exclude any bronchiectasis. If this would be noted, possible consideration of MAC therapy might be considered in future if necessary. All other supportive therapy, plan of management and care plan. Usual treatment. Continuation of the Mucinex as well. Thanks for allowing me to participate in the care of this patient. MARLON BAXTER MD CM:CONSTR:REPORT OF CONSULTATION [id number] 12/04/17 0722 interface
--- NOTE | ~2017-12-01 | PR ---
[place], [place] PROGRESS NOTE NAME: RAYMUNDO HEATH [facility] #: [id number] UNIT #: [id number] ROOM: 530 DOCTOR: SAHIL HAMMOND MDMARLON BIRTHDATE: [birth year] DOS: 12/03/2017 SUBJECTIVE: The patient was comfortably resting, noted reduction of cough, still noted with moderate to severe chest congestion. The patient is coughing without any sputum expectoration. Denies symptoms of hemoptysis. The patient's denies symptoms of nausea or vomiting. Denies symptoms of headache. The general weakness and fatigue were noted partially decreased. The wheezing was still reported intermittently worsened with walking. The ambulation was still noted limited because of symptoms of shortness of breath. The remaining systems were reviewed and they were noted all negative. PHYSICAL EXAMINATION: VITAL SIGNS: Normal temperature, respiratory rate 20, heart rate of 76, blood pressure 146/82-150/86. The pulse oxygen saturation on 3 liters nasal cannula is 96% saturation. HEENT: No acute change. NECK: Supple. CARDIOVASCULAR: S1, S2 audible. LUNGS: Moderate decreased breath sounds with expiratory wheezing, no crackles. ABDOMEN: Soft, nontender. EXTREMITIES: Without any acute edema. MUSCULOSKELETAL: Without acute deformities. CENTRAL NERVOUS SYSTEM: General weakness. Cranial nerves 2-12 intact. No focal deficit. LABORATORY DATA: CBC today, WBC count normal, hemoglobin 11.9, normal platelet count. IMAGING STUDIES: CT scan of the chest that was completed this morning on the patient without contrast was personally reviewed and shows 1.5 cm nodule noted in the right upper lung, unchanged with noted previous CT scan of 09/20/2017, required further assessment. Evidence of centrilobular emphysema changes were noted in the lungs diffusely. IMPRESSION AND PLAN: 1. The patient who has been currently noted with recurrence of acute exacerbation of chronic obstructive pulmonary disease with acute bronchitis, still noted with active symptom with partial improvement. 2. A 1.5 cm nodule in the right upper lobe, which required further assessment as an outpatient. The patient has not been seen in the office for many years and has not been able to make an appointment in the office post-discharge with previous hospitalizations as well. She is stating she has a difficulty of transportation and most likely she will be able to make an appointment this time to be seen in the office after this current discharge. She does not smoke any cigarettes and ___ continued abstinence of tobacco use. Continue the current dose of the corticosteroids for the patient, bronchodilators and antibiotics. No changes need to be done. 3. 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 The patient elected not to be treated at this point. [place], [place] PROGRESS NOTE NAME: RAYMUNDO HEATH UNIT #: [id number] ROOM: [facility] DOCTOR: MARLON LUBIN MD BIRTHDATE: [birth year] MARLON BAXTER MD CM:PNHOLLIS [id number] MARLON HAMMOND MD 12/04/17 0242 interface
[2017-12-01 15:49] VITALS: BP 148/72
[2017-12-01 16:20] LABS: ABG BASE EXCESS 0.8 mmol/L (-2.0-2.0); ABG HCO3 25.3 mmol/l (22-26); ABG O2 SATURATION 98.2 % (95-97); ARTERIAL BLOOD GAS PCO2 41.8 mmHg (35-45); ARTERIAL BLOOD GAS PH 7.397 (7.35-7.45)
[2017-12-01 16:24] LABS: BASO # 0.1 10*3/uL (0.0-0.1); BASO % 0.5 % (0.0-1.0); EOS # 0.2 10*3/uL (0.0-0.4); EOS % 1.7 % (1.0-4.0); HEMATOCRIT 35.2 % (37.0-47.0); HEMOGLOBIN 11.1 g/dl (12.0-16.0); LYMPH # 1.4 10*3/uL (1.3-4.4); LYMPH % 12.4 % (27.0-41.0); MEAN CELL VOLUME 91.2 fl (81.0-99.0); MEAN CORPUSCULAR HGB 28.8 pg (27.0-31.0); MEAN CORPUSCULAR HGB CONC 31.5 g/dl (33.0-37.0); MEAN PLATELET VOLUME 9.9 fl (9.6-12.3); MONO # 0.7 10*3/uL (0.1-1.0); NEUT % 78.5 % (47.0-73.0); PLATELET COUNT AUTOMATED 213 10*3/uL (130-400); RED BLOOD COUNT 3.86 10*6/uL (4.10-5.10); RED CELL DISTRI WIDTH 14.6 % (0-14.5); WHITE BLOOD COUNT 11.5 10*3/uL (4.8-10.8)
[2017-12-01 16:45] VITALS: BP 133/53
[2017-12-01 16:46] LABS: ALBUMIN 3.2 gm/dl (3.1-4.5); ALKALINE PHOSPHATASE 101 U/L (45-117); BUN 15 mg/dl (7-24); CHLORIDE 111 mmol/L (98-107); CREATININE 0.82 mg/dL (0.55-1.02); POTASSIUM 4.4 mmol/L (3.5-5.1); SGOT/AST 21 IU/L (3-35); SGPT/ALT 21 U/L (12-78); SODIUM 144 mmol/L (136-145); TOTAL PROTEIN 6.5 gm/dL (6.4-8.2)
[2017-12-01 17:40] VITALS: BP 128/60
[2017-12-01 18:20] VITALS: BP 113/85
[2017-12-01] MEDS ORDERED: SEROQUEL XR150 MG PO (18:36)
[2017-12-01 20:00] VITALS: BP 144/84
[2017-12-02] VITALS: BP 143/80
[2017-12-02 07:05] LABS: HEMATOCRIT 37.6 % (37.0-47.0); HEMOGLOBIN 11.9 g/dl (12.0-16.0); MEAN CELL VOLUME 89.5 fl (81.0-99.0); MEAN CORPUSCULAR HGB 28.3 pg (27.0-31.0); MEAN CORPUSCULAR HGB CONC 31.6 g/dl (33.0-37.0); MEAN PLATELET VOLUME 10.9 fl (9.6-12.3); PLATELET COUNT AUTOMATED 211 10*3/uL (130-400); RED CELL DISTRI WIDTH 14.3 % (0-14.5); WHITE BLOOD COUNT 7.4 10*3/uL (4.8-10.8)
[2017-12-02 07:15] LABS: BUN 17 mg/dl (7-24); CHLORIDE 109 mmol/L (98-107); CHOLESTEROL 198 mg/dL (<200); CREATININE 0.85 mg/dL (0.55-1.02); HDL CHOLESTEROL 60 mg/dl (40-60); LDL CHOLESTEROL 125 mg/dL (9-159); PHOSPHOROUS 1.8 mg/dL (2.5-4.9); POTASSIUM 4.2 mmol/L (3.5-5.1); SODIUM 142 mmol/L (136-145); TRIGLYCERIDES 63 mg/dl (<150); VLDL CHOLESTEROL 13 mg/dL (6-40)
[2017-12-02 07:22] LABS: THYROID STIM HORMONE (HS) 0.147 uIU/ml (0.358-4.75)
[2017-12-02 07:34] LABS: OVALOCYTES FEW; PLATELET SUFFICIENCY NORMAL (NORMAL); TOTAL CELLS COUNTED 100 #CELLS
[2017-12-02 08:00] VITALS: BP 160/95
[2017-12-02 08:52] VITALS: BP 154/90
[2017-12-02 12:00] VITALS: BP 156/86
[2017-12-02 16:00] VITALS: BP 177/85
[2017-12-02 20:00] VITALS: BP 162/71
[2017-12-03] VITALS: BP 161/87
[2017-12-03 08:00] VITALS: BP 150/86
[2017-12-03 12:00] VITALS: BP 146/82
[2017-12-03 16:00] VITALS: BP 130/111
[2017-12-03 20:00] VITALS: BP 144/75
[2017-12-04] VITALS: BP 165/89
[2017-12-04 06:49] LABS: BUN 32 mg/dl (7-24); CHLORIDE 111 mmol/L (98-107); CREATININE 0.89 mg/dL (0.55-1.02); PHOSPHOROUS 2.8 mg/dL (2.5-4.9); POTASSIUM 4.6 mmol/L (3.5-5.1); SODIUM 144 mmol/L (136-145)
[2017-12-04 08:00] VITALS: BP 148/100
[2017-12-04] MEDS ORDERED: TRAMADOL HCL50 MG PO (11:20)
[2017-12-04] MEDS ORDERED: MUCINEX ER600 MG PO (11:20)
[2017-12-04] MEDS ORDERED: PREDNISONE10 MG PO (11:21)
[2017-12-04] MEDS ORDERED: ZITHROMAX500 MG PO (11:25)
== END 2017-12-04 12:51 | disposition home or self-care (01) | DRG 189 ==
LOC: ED 15:39 → EDHOLD 17:29 → 5E 17:29
PROVIDERS: Emergency Medicine; Internal Medicine; Student in an Organized Health Care Education/Training Program
DX: J96.21 Acute and chronic respiratory failure with hypoxia (principal); E87.8 Other disorders of electrolyte and fluid balance, not elsewhere classified; E44.1 Mild protein-calorie malnutrition; I50.32 Chronic diastolic (congestive) heart failure; I11.0 Hypertensive heart disease with heart failure; J44.0 Chronic obstructive pulmonary disease with (acute) lower respiratory infection; Z68.45 Body mass index [BMI] 70 or greater, adult; J44.1 Chronic obstructive pulmonary disease with (acute) exacerbation; Z99.81 Dependence on supplemental oxygen; G43.909 Migraine, unspecified, not intractable, without status migrainosus; K21.9 Gastro-esophageal reflux disease without esophagitis; I25.10 Atherosclerotic heart disease of native coronary artery without angina pectoris; D72.810 Lymphocytopenia; E55.9 Vitamin D deficiency, unspecified; E66.9 Obesity, unspecified; E78.5 Hyperlipidemia, unspecified; D64.9 Anemia, unspecified; Z96.643 Presence of artificial hip joint, bilateral; J20.9 Acute bronchitis, unspecified; R91.1 Solitary pulmonary nodule; Z82.49 Family history of ischemic heart disease and other diseases of the circulatory system; Z87.891 Personal history of nicotine dependence; Z83.3 Family history of diabetes mellitus; I25.2 Old myocardial infarction; Z80.1 Family history of malignant neoplasm of trachea, bronchus and lung; Z79.52 Long term (current) use of systemic steroids; Z79.899 Other long term (current) drug therapy